=== PATIENT | female | born 1990 | race Two or more races ===

== ENCOUNTER 2022-11-30 12:37 | Emergency (ER) | payer OTHER, SELFPAY ==
--- NOTE | ~2022-11-30 | XR_ITS ---
EXAMINATION: XR chest 2V 11/30/2022 12:59 INDICATION: Chest pain PROCEDURE: 2 view chest COMPARISON: No prior studies for comparison. FINDINGS: The lungs are clear. The cardiomediastinal silhouette is within normal limits. There are no pleural effusions. There is no pneumothorax suspected. IMPRESSION: 1: NO ACUTE CARDIOPULMONARY DISEASE. Reviewed, dictated and finalized at location A.
--- NOTE | 2022-11-30 12:40 | ECG_ITS ---
Measurements Intervals [place] Rate: 78 P: 65 GA: 158 QRS: 76 QRSD: 78 T: 55 QT: 329 QTc: 376 Interpretive Statements SINUS RHYTHM BASELINE ARTIFACT- I, AVL NORMAL ECG NO PREVIOUS ECG AVAILABLE FOR COMPARISON Electronically Signed On 11-30-2022 13:08:31 CDT by Abrahan Ballesteros D.O.
[2022-11-30 12:49] VITALS: PULSE 93; RESP 17; TEMP 36.6; O2SAT 99
[2022-11-30 12:54] LABS: Basophils Absolute Auto 0.1 K/mm3 (0.0-0.1); Eosinophils Absolute Auto 0.7 K/mm3 (0-0.3); Eosinophils Percent Auto 10.1 % (0-4.4); Hematocrit 39.6 % (37.0-47.0); Hemoglobin 12.6 g/dL (12.0-15.0); Immature Granulocyte Absolute 0.02 K/mm3 (0.00-0.031); Immature Granulocyte Percent A 0.3 % (0-0.5); Lymphocytes Absolute Auto 2.07 K/mm3 (0.9-3.2); Lymphocytes Percent Auto 29.4 % (18.3-44.2); Mean Corpuscular HGB Conc 31.8 g/dl (32-36); Mean Corpuscular Hemoglobin 26.7 pg (26-34); Mean Corpuscular Volume 83.9 fl (80-100); Mean Platelet Volume 9.6 fl (7.4-10.4); Monocytes Absolute Auto 0.4 K/mm3 (0.1-0.6); Monocytes Percent Auto 6.1 % (2.6-8.5); Neutrophils Absolute Auto 3.7 K/mm3 (1.3-6.7); Neutrophils Percent Auto 53.1 % (45.5-73.1); Platelet Count Result 310 k/mm3 (150-375); Red Blood Count 4.72 M/mm3 (4.2-5.4); Red Cell Distribution Width 13.2 % (11.5-14.5)
[2022-11-30 13:05] LABS: INR 0.9; Prothrombin Time 12.8 Seconds (11.1-14.7)
[2022-11-30 13:08] LABS: Alanine Aminotransferase 15 U/L (6-35); Albumin Level 4.7 g/dL (3.5-5.1); Alkaline Phosphatase 63 U/L (38-126); Anion Gap 8 mmol/L (8-16); Aspartate Amino Transferase 25 U/L (14-36); Bilirubin,Total 0.4 mg/dL (0.2-1.3); Blood Urea Nitrogen 11 mg/dL (7-17); Calcium 9.1 mg/dL (8.4-10.2); Carbon Dioxide 27 mmol/L (22-30); Chloride 105 mmol/L (98-107); Estimated Glomerular Filt Rate > 60; Glucose 81 mg/dL (65-110); Lipase 99 U/L (23-300); Potassium 4.1 mmol/L (3.4-5.0); Sodium 140 mmol/L (137-145)
[2022-11-30 13:20] LABS: Troponin I < 0.012 ng/mL (0.000-0.034)
--- NOTE | 2022-11-30 15:54 | ED.CHESTPAIN ---
HPI - Chest Pain General Chief Complaint: Chest Pain Stated Complaint: chest pain Time Seen by Provider: 11/30/22 15:42 History of Present Illness HPI narrative: 32-year-old female presented the emergency department for evaluation of right-sided chest pain. Patient states this morning she had onset of right-sided chest pain that was worsened with deep inspiration. Patient describes the pain as sharp and with deep inspiration. Patient denied any radiation of the pain. Patient denied any associated nausea vomiting or diaphoresis. Patient denies any prior history of PE or DVT. Patient denies any prior history of coronary disease. Patient did have a D&C last Friday at [facility]. Patient reports that since the pain started this morning is almost completely resolved. Patient denies any current shortness of breath. Related Data Allergies Allergy/AdvReac Type Severity Reaction Status Date / Time No Known Allergies Allergy Verified 11/30/22 15:58 Review of Systems Review of Systems: All systems reviewed & are unremarkable except as noted in HPI and below Exam Narrative: APPEARANCE: Well appearing, no pain, no distress, well-nourished. HEAD: normocephalic, atraumatic. EYES: PERRLA/EOMI, conjunctivae clear. NOSE: Normal no drainage NECK: Supple. No adenopathy, no masses. RESPIRATORY: Airway patent, respirations nonlabored. Clear to auscultation bilaterally, no rales, rhonchi, wheezing. CARDIOVASCULAR: Regular rate and rhythm without murmurs rubs or gallops. ABDOMINAL: Soft, nontender, nondistended, normal bowel sounds MUSCULOSKELETAL: Moves all extremities. Strength/ROM intact, No edema, No calf tenderness. NEURO: Alert. Cranial nerves II through XII intact. SKIN: Warm, dry. Normal Color Course Course Emergency Course: 32-year-old female presented the emergency department for evaluation of pleuritic right-sided chest wall pain. Patient was afebrile with no leukocytosis. Patient is not tachycardic nor hypoxic. Patient's INR is 0.9. Patient's chemistries are within normal limits. Patient's chest x-ray showed no acute cardiopulmonary abnormality. EKG showed normal sinus rhythm with no ST changes. D-dimer was ordered due to the patient had a recent surgical procedure. Patient's D-dimer was not elevated. Patient's repeat troponin was not elevated. Suspect pleuritic chest wall pain. Patient was updated results of her work-up. Patient's D-dimer was not elevated so low concern for pulm embolism. Patient may have a pleurisy or pneumonitis from her recent surgical procedure. Patient was updated on the treatment plan encouraged of close follow-up with her primary care physician. All question concerns were addressed and patient was comfortable with the plan for discharge and close follow-up Vital Signs Vital signs: Vital Signs Temperature 98 F 11/30/22 12:49 Pulse Rate 93 11/30/22 12:49 Respiratory Rate 17 11/30/22 12:49 Pulse Oximetry 99 11/30/22 12:49 Temperature 98 F 11/30/22 12:49 Pulse Rate 78 11/30/22 17:08 Respiratory Rate 18 11/30/22 17:08 Blood Pressure 103/74 11/30/22 17:08 Pulse Oximetry 100 11/30/22 17:08 Oxygen Delivery Room Air 11/30/22 15:57 MDM - Chest Pain Differential Diagnosis Differential diagnosis: Likely pneumothorax, atypical chest pain, costochondritis, chest pain and other (Pulmonary embolism) Lab Data Attestation: I reviewed the patient's lab results. 11/30/22 12:49 11/30/22 12:49 Labs: Lab Results 11/30/22 11/30/22 Range/Units 12:49 16:03 WBC 7.0 (4.5-10.0) K/mm3 RBC 4.72 (4.2-5.4) M/mm3 Hgb 12.6 (12.0-15.0) g/dL Hct 39.6 (37.0-47.0) % MCV 83.9 (80-100) fl MCH 26.7 (26-34) pg MCHC 31.8 L (32-36) g/dl RDW 13.2 (11.5-14.5) % Plt Count 310 (150-375) k/mm3 MPV 9.6 (7.4-10.4) fl Immature Gran % (Auto) 0.3 (0-0.5) % Neut % (Auto) 53.1 (45.5-73.1) % Lymph %
[2022-11-30 15:57] VITALS: PULSE 67; O2SAT 100
[2022-11-30 16:32] LABS: D Dimer 0.43 ug/mL (<0.48)
[2022-11-30 16:40] LABS: Troponin I < 0.012 ng/mL (0.000-0.034)
[2022-11-30] MEDS: KETOROLAC 15 MG/ML VIAL (*BKC) IV PUSH (17:02)
[2022-11-30 17:08] VITALS: BP 103/74; PULSE 78; RESP 18; O2SAT 100
== END 2022-11-30 17:09 | disposition home or self-care (01) ==
PROVIDERS: Emergency Provider Emergency Medicine
DX: R09.1 Pleurisy (principal); R07.89 Other chest pain
CPT/HCPCS: 36415; 71046; 80053; 83690; 84484; 85025; 85380; 85610; 85730; 93005; 96374; 99284; J1885

== ENCOUNTER 2023-06-30 22:35 | Emergency (ER) | payer OTHER, SELFPAY ==
--- NOTE | ~2023-06-30 | CT_ITS ---
Non-contrast Head CT History: Paresthesia Technique: Axial non-contrast imaging of the brain was performed. Dose reduction technique was used on this scan by utilizing automated exposure control and iterative reconstruction technique. The dose -length product (DLP) was 605.33 mGy-cm. Findings: There is no evidence of intracranial hemorrhage, mass lesion, or acute infarct. Brain par enchyma appears normal. The ventricles and subarachnoid spaces are normal in size. The calvarium ap pears normal. The visualized paranasal sinuses and mastoid air cells are clear. Impression: No significant abnormality seen. Reviewed, dictated and finalized at location . GE MAINTAINER Impression: No significant abnormality seen.
[2023-06-30 22:39] VITALS: BP 141/90; PULSE 97; RESP 16; TEMP 36.4; O2SAT 100
--- NOTE | 2023-06-30 22:45 | ECG_ITS ---
Measurements Intervals [place] Rate: 91 P: 64 [place]: 164 QRS: 68 QRSD: 79 T: 54 QT: 343 QTc: 422 Interpretive Statements SINUS RHYTHM NONSPECIFIC ST & T-WAVE ABNORMALITY ABNORMAL ECG COMPARED TO ECG 11/30/2022 12:45:00 T-WAVE ABNORMALITY NOW PRESENT Electronically Signed On 07-01-2023 16:56:06 SPREADER BOX OPERATOR by You Price M.D.
[2023-06-30 22:53] LABS: Basophils Absolute Auto 0.1 K/mm3 (0.0-0.1); Basophils Percent Auto 0.7 % (0.2-1.2); Eosinophils Absolute Auto 0.3 K/mm3 (0-0.3); Eosinophils Percent Auto 3.1 % (0-4.4); Hematocrit 41.8 % (37.0-47.0); Hemoglobin 13.1 g/dL (12.0-15.0); Immature Granulocyte Absolute 0.02 K/mm3 (0.00-0.031); Immature Granulocyte Percent A 0.2 % (0-0.5); Lymphocytes Absolute Auto 2.85 K/mm3 (0.9-3.2); Lymphocytes Percent Auto 33.5 % (18.3-44.2); Mean Corpuscular HGB Conc 31.3 g/dl (32-36); Mean Corpuscular Hemoglobin 26.1 pg (26-34); Mean Corpuscular Volume 83.3 fl (80-100); Mean Platelet Volume 10.2 fl (7.4-10.4); Monocytes Absolute Auto 0.5 K/mm3 (0.1-0.6); Monocytes Percent Auto 5.8 % (2.6-8.5); Neutrophils Absolute Auto 4.8 K/mm3 (1.3-6.7); Neutrophils Percent Auto 56.7 % (45.5-73.1); Platelet Count Result 237 k/mm3 (150-375); Red Blood Count 5.02 M/mm3 (4.2-5.4); White Blood Count 8.5 K/mm3 (4.5-10.0)
[2023-06-30 23:05] LABS: Alanine Aminotransferase 14 U/L (6-35); Albumin Level 4.9 g/dL (3.5-5.1); Alkaline Phosphatase 72 U/L (38-126); Anion Gap 9 mmol/L (8-16); Aspartate Amino Transferase 24 U/L (14-36); Bilirubin,Total 0.7 mg/dL (0.2-1.3); Blood Urea Nitrogen 20 mg/dL (7-17); Calcium 9.4 mg/dL (8.4-10.2); Carbon Dioxide 25 mmol/L (22-30); Chloride 103 mmol/L (98-107); Estimated CRCL calculation 94 ml/min; Estimated Glomerular Filt Rate > 60; Glucose 107 mg/dL (65-110); Potassium 3.6 mmol/L (3.4-5.0); Sodium 137 mmol/L (137-145)
[2023-06-30 23:54] VITALS: PULSE 82
[2023-07-01 00:04] VITALS: BP 105/78; PULSE 91; RESP 19; O2SAT 100
--- NOTE | 2023-07-01 00:17 | ED.DIZZY ---
HPI - Dizziness General Chief Complaint: Dizziness Stated Complaint: R hand numbness, dizziness Time Seen by Provider: 07/01/23 00:00 Source: patient Mode of arrival: ambulatory Limitations: no limitations History of Present Illness HPI Narrative: This is a 32 presents to the ED with chief complaint right upper extremity paresthesias for the past 2 weeks intermittently. Reports that she has had intermittent lightheadedness as well. Reports that the last 2-3 days she had a headache but this resolved today. Reports some intermittent light sensitivity. Reports she is feeling jittery on the inside. Reports having a dry mouth and heart palpitations. Denies chest pain, shortness of breath, syncope, seizures, head injury, abdominal pain, nausea, vomiting. Related Data Allergies Allergy/AdvReac Type Severity Reaction Status Date / Time No Known Allergies Allergy Verified 11/30/22 15:58 Review of Systems Review of Systems: All systems as dictated in HPI Exam Narrative: GENERAL: Well-appearing, well-nourished, and in no acute distress. HEAD: Normocephalic, atraumatic. EYES: PERRLA and EOMI. ENT: Nares clear, no rhinorrhea or epistaxis. Mucous membranes moist. Oropharynx without tonsillar hypertrophy exudate or other lesions. NECK: Supple. No adenopathy or masses. CHEST: No respiratory distress. Clear to auscultation. No wheezes rales or rhonchi HEART: Regular rate and rhythm. No murmur heard. Normal peripheral pulses. ABDOMEN: Soft, nontender, nondistended, normal active bowel sounds. MSK: Normal range of motion. No edema. SKIN: Warm, dry, no rash. NEURO: Alert and oriented x3. No focal deficits. PSYCH: Normal mood and affect. Course Vital Signs Vital signs: Vital Signs Temperature 97.6 F 06/30/23 22:39 Pulse Rate 97 06/30/23 22:39 Respiratory Rate 16 06/30/23 22:39 Blood Pressure 141/90 H 06/30/23 22:39 Pulse Oximetry 100 06/30/23 22:39 Oxygen Delivery Room Air 06/30/23 22:39 Temperature 97.6 F 06/30/23 22:39 Pulse Rate 91 07/01/23 00:04 Respiratory Rate 19 07/01/23 00:04 Blood Pressure 105/78 07/01/23 00:04 Pulse Oximetry 100 07/01/23 00:04 Oxygen Delivery Room Air 06/30/23 22:39 MDM - Dizziness MDM Narrative Medical decision making narrative: this is a 33-year-old female who presents to the ED with multiple complaints including paresthesias, lightheadedness, headache, palpitations. Vitals are normal. Exam is unremarkable. Neurologic exam fully intact. No motor deficit. EKG shows normal sinus rhythm. Bedside negative. CT brain negative for any acute findings. Incidental finding of pineal cyst. Lab work unremarkable. There are no meningeal signs on exam. Her headache is resolved today. Overall symptoms consistent with isolated paresthesias. We discussed that there is no evidence of any emergent finding on her for workup today. neurology referral given. Pt will be discharged in stable condition. Return precautions given and supportive measures discussed. Pt is understanding and agreeable with plan for discharge and follow-up with PCP/neuro Lab Data 06/30/23 22:47 06/30/23 22:47 Labs: Lab Results 06/30/23 Range/Units 22:47 WBC 8.5 (4.5-10.0) K/mm3 RBC 5.02 (4.2-5.4) M/mm3 Hgb 13.1 (12.0-15.0) g/dL Hct 41.8 (37.0-47.0) % MCV 83.3 (80-100) fl MCH 26.1 (26-34) pg MCHC 31.3 L (32-36) g/dl RDW 13.0 (11.5-14.5) % Plt Count 237 (150-375) k/mm3 MPV 10.2 (7.4-10.4) fl Immature Gran % (Auto) 0.2 (0-0.5) % Neut % (Auto) 56.7 (45.5-73.1) % Lymph % (Auto) 33.5 (18.3-44.2) % [place] % (Auto) 5.8 (2.6-8.5) % Eos % (Auto) 3.1 (0-4.4) % Baso % (Auto) 0.7 (0.2-1.2) % Lymph # (Auto) 2.85 (0.9-3.2) K/mm3 [place] # (Auto) 0.5 (0.1-0.6) K/mm3 Eos # (Auto) 0.3 (0-0.3) K/mm3 Baso # (Auto) 0.1 (0.0-0.1) K/mm3 Abs Immat Gran (auto) 0.02 (0.00-0.031) K/
[2023-07-01 02:24] VITALS: BP 105/78; PULSE 73; RESP 24; O2SAT 100
== END 2023-07-01 02:26 | disposition home or self-care (01) ==
PROVIDERS: Emergency Medicine; Emergency Provider Physician Assistant
DX: R20.2 Paresthesia of skin (principal); R42 Dizziness and giddiness
CPT/HCPCS: 36415; 70450; 80053; 81025; 85025; 93005; 99284

== ENCOUNTER → 2023-07-03 09:08 | Outpatient (CLI) | payer OTHER, SELFPAY ==
--- NOTE | ~2023-07-03 | XR_ITS ---
Cervical Spine: AP, lateral, open-mouth views Clinical History: Paresthesia Findings: The normal lordotic curve is maintained. The vertebral bodies and posterior elements appea r intact. The intervertebral disc spaces are well maintained. Pre-vertebral soft tissues are unremar kable. Impression: No significant abnormality is seen. Reviewed, dictated and finalized at [facility]. AIR CONDITIONING APPRENTICE Impression: No significant abnormality is seen.
== END ==
PROVIDERS: PCP Emergency Medicine; Visit Provider Emergency Medicine
DX: R20.2 Paresthesia of skin (principal)
CPT/HCPCS: 72050

== ENCOUNTER 2023-09-07 20:42 | Emergency (ER) | payer OTHER, SELFPAY ==
--- NOTE | ~2023-09-07 | CT_ITS ---
Non-contrast Head CT History: Headache COMPARISON: 07/09/2023 Technique: Axial non-contrast imaging of the brain was performed. Dose reduction technique was used on this scan by utilizing automated exposure control and iterative reconstruction technique. The dose -length product (DLP) was 681.00 mGy-cm. Findings: There is no evidence of intracranial hemorrhage, mass lesion, or acute infarct. Brain par enchyma appears normal. The ventricles and subarachnoid spaces are normal in size. The calvarium ap pears normal. The visualized paranasal sinuses and mastoid air cells are clear. Impression: No significant abnormality seen. Reviewed, dictated and finalized at location . ESTATE ASSISTANT Impression: No significant abnormality seen.
[2023-09-07 20:46] VITALS: BP 140/76; PULSE 72; RESP 15; TEMP 36; O2SAT 100
[2023-09-07 21:49] VITALS: BP 125/88; PULSE 71; RESP 13; O2SAT 100
--- NOTE | 2023-09-07 22:08 | ED.GENADULT ---
HPI - General Adult General Chief complaint: Headache Stated complaint: migraine, double vision Time Seen by Provider: 09/07/23 21:53 History of Present Illness HPI narrative: 33-year-old female presenting to the emergency department for evaluation of persistent headache over the course of the last 2 weeks. Patient states she does have a rare history of headaches but denies any persistent migraines. Patient does have a family history of migraines. Patient states approximately 2 weeks ago she started having some frontal sinus pressure and states that the symptoms have persisted. Patient has been taking ibuprofen for pain control without significant improvement. [facility] treated with a migraine cocktail, patient states that this did help with her symptoms briefly but she felt that she had an adverse reaction to the Compazine and patient's symptoms have persisted patient Related Data Home Medications Medication Instructions Recorded Confirmed cholecalciferol (vitamin D3) 50 50 mcg PO DAILY 08/19/23 08/19/23 mcg (2,000 unit) capsule Allergies Allergy/AdvReac Type Severity Reaction Status Date / Time No Known Allergies Allergy Verified 09/07/23 20:49 Review of Systems Review of Systems: All systems reviewed & are unremarkable except as noted in HPI and below PMFSH Surgical History Surgical History History of dilation and curettage 2022 Family History Family History (Updated 08/19/23 @ 09:20 by Lavonne Waldron MA) Father Hypertension Diabetes mellitus COPD (chronic obstructive pulmonary disease) Mother Hypertension Diabetes mellitus Social History Social History (Updated 08/19/23 @ 09:21 by Lavonne Waldron MA) Smoking status: Unknown if ever smoked Smokeless tobacco user: other Alcohol intake: never Substance use: never Substance use type: does not use Do You Feel Safe in your Home?: Yes Lack of Transportation: No Lack of Food: Never True Current Housing: I Have Housing Concerned About Future Housing: No Difficulty Paying Gas/Electric Bills: No Difficulty Paying for Meds: No Currently Unemployed: No Education: High School Diploma/GED Difficulty w/ Childcare or Family Care: No Living arrangements: with family Occupation/Education: occupation Gender identity (if verbalized by the patient): Female Sexual Orientation (if Verbalized by the Patient): Straight or Heterosexual Exam Narrative: APPEARANCE: Well appearing, no pain, no distress, well-nourished. HEAD: normocephalic, atraumatic. EYES: PERRLA/EOMI, conjunctivae clear. NOSE: Normal no drainage EARS:TMS clear with good light reflex. THROAT: Pharynx clear, no exudate. NECK: Supple. No adenopathy, no masses. RESPIRATORY: Airway patent, respirations nonlabored. Clear to auscultation bilaterally, no rales, rhonchi, wheezing. CARDIOVASCULAR: Regular rate and rhythm without murmurs rubs or gallops. ABDOMINAL: Soft, nontender, nondistended, normal bowel sounds MUSCULOSKELETAL: Moves all extremities. Strength/ROM intact, No edema, No calf tenderness. NEURO: Alert. Cranial nerves II through XII intact. Normal comprehensive neuro exam SKIN: Warm, dry. Normal Color Course Course Emergency Course: 33-year-old female presented the ED for evaluation of headache. Patient reports her headache was significantly improved with treatment in the ED. Patient had a negative head CT. Patient was comfortable the plan for discharge and close follow-up. Patient was encouraged to follow up with her primary care physician. Patient will also be provided follow-up with Neurology. Vital Signs Vital signs: Vital Signs Temperature 96.8 F L 09/07/23 20:46 Pulse Rate 72 09/07/23 20:46 Respiratory Rate 15 09/07/23 20:46 Blood Pressure 140/76 09/07/23 20:46 Pulse Oximetry 100 09/07/23 20:46 Oxygen Delivery Room Air
[2023-09-07] MEDS: KETOROLAC 15 MG/ML VIAL (*BKC) IV PUSH (22:24)
[2023-09-07] MEDS: dexAMETHasone SOD PHOS INJ 10 MG/ML 1 ML VIAL IV PUSH (22:24)
[2023-09-07] MEDS: MAGNESIUM SULF 1 GM/D5W 100 ML 1 GM/100 ML BAG IVPB (22:25)
[2023-09-07 23:37] LABS: Influenza A QL RT-PCR Negative (Negative); Influenza B QL RT-PCR Negative (Negative); RSV RNA, RT-PCR Negative (Negative); SARS-CoV-2 RNA PCR Negative (Negative)
== END 2023-09-08 00:10 | disposition home or self-care (01) ==
PROVIDERS: Emergency Provider Emergency Medicine; PCP Emergency Medicine
DX: R51.9 Headache, unspecified (principal); Z20.822 Contact with and (suspected) exposure to COVID-19
CPT/HCPCS: 70450; 81025; 87637; 96365; 96375; 99284; J1100; J1885; J3475

== ENCOUNTER 2023-10-24 12:43 | Outpatient (CLI) | payer OTHER, SELFPAY ==
--- NOTE | ~2023-10-24 | MM_ITS ---
EXAMINATION: MM diagnostic joseluis BI w willem HISTORY: Palpable breast lump TECHNIQUE: Additional 3-D tomosynthesis images of the breasts were performed and synthetic 2-D images were generated. CAD analysis was submitted and interpreted. COMPARISON: None BREAST PARENCHYMAL COMPOSITION: Dense: The breasts are extremely dense, which lowers the sensitivity of mammography. FINDINGS: There are no suspicious masses, calcifications or architectural distortion in either breast to suggest malignancy. IMPRESSION: 1. Dense breasts. No mammographic evidence for malignancy. 2. Recommend complete bilateral breast ultrasound for evaluation of dense breast. BI-RADS Category 0: Incomplete: Needs additional imaging evaluation. Reviewed, dictated and finalized at location A. IMPRESSION: 1. Dense breasts. No mammographic evidence for malignancy. 2. Recommend complete bilateral breast ultrasound for evaluation of dense breas t. BI-RADS Category 0: Incomplete: Needs additional imaging evaluation.
== END 2023-10-24 12:44 | disposition home or self-care (01) ==
LOC: ANHIMG 12:44
PROVIDERS: PCP Emergency Medicine; Visit Provider Obstetrics & Gynecology
DX: N63.15 Unspecified lump in the right breast, overlapping quadrants (principal); R92.8 Other abnormal and inconclusive findings on diagnostic imaging of breast
CPT/HCPCS: 77062; 77066; G0279

== ENCOUNTER 2023-10-28 08:21 | Outpatient (CLI) | payer OTHER, SELFPAY ==
--- NOTE | ~2023-10-28 | US_ITS ---
US breast BI complete DATE: 10/28/2023 09:04 INDICATION: 10:00 right breast lump 3 cm from nipple TECHNIQUE: Real-time imaging of both complete breasts, including all 4 quadrants and subareolar areas COMPARISON: None FINDINGS: No suspicious mass or shadowing of either breast is detected. No cyst is identified. IMPRESSION: BI-RADS Category 1: Negative If symptoms or physical signs persist, consider diagnostic mammography. Reviewed, dictated and finalized at Location A. Reviewed, dictated and finalized at location A.
== END 2023-10-28 08:22 | disposition home or self-care (01) ==
PROVIDERS: PCP Emergency Medicine; Visit Provider Obstetrics & Gynecology
DX: N63.15 Unspecified lump in the right breast, overlapping quadrants (principal)
CPT/HCPCS: 76641

== ENCOUNTER 2023-12-06 08:29 | Outpatient (CLI) | payer OTHER, SELFPAY ==
--- NOTE | ~2023-12-06 | MR_ITS ---
EXAMINATION: MR brain/brain stem wo/w con DATE: 12/06/2023 09:13 INDICATION: Diplopia. Right lower extremity numbness. TECHNIQUE: Magnetic resonance imaging (MRI) of the brain and brainstem was performed without and with 13 mL MultiHance intravenous contrast. COMPARISON: Head CT 09/07/2023 FINDINGS: There is no intracranial hemorrhage, acute infarction, or abnormal intracranial mass lesion . There is mucosal thickening in the paranasal sinuses. The orbits are normal. The mastoid air cells are normal. IMPRESSION: 1. Normal brain. Reviewed, dictated and finalized at location A. IMPRESSION: 1. Normal brain.
== END 2023-12-06 08:30 | disposition home or self-care (01) ==
LOC: ANHIMG 08:30
PROVIDERS: PCP Emergency Medicine; Visit Provider Student in an Organized Health Care Education/Training Program
DX: H53.2 Diplopia (principal); R20.0 Anesthesia of skin
CPT/HCPCS: 70553; A9577

== ENCOUNTER 2024-09-21 08:53 | Emergency (ER) | payer OTHER, SELFPAY ==
--- NOTE | ~2024-09-21 | US_ITS ---
EXAMINATION: US OB <=14 wk fetus w TV DATE: 09/21/2024 11:09 INDICATION: Nausea and vomiting during first trimester TECHNIQUE: Real-time pelvic ultrasound utilizing both a transvaginal and transabdominal probe was pe rformed. The interpreting radiologist was not present for the study. COMPARISON: None. FINDINGS: The uterus measures 9.4 x 6.9 x 8.2 cm. There is an intrauterine gestational sac. A yolk sac and fet al pole are identified. The crown rump length measures 6-7, which correlates with an estimated gestat ional age of 6 weeks and 6 days. heart motion is identified measuring 119 beats per minute (bpm ) by M-mode Doppler. 1.7 x 0.3 cm anechoic subchorionic hematoma along the anterior margin of the ges tational sac. There are couple 6 x 3 mm hypoechoic regions along the posterior margin of the gestatio nal sac also suspicious for small hematomas. The right ovary measures 3.9 x 1.6 x 3.0 cm. The left ovary measures 3.8 x 3.1 x 2.3 cm. There are a few subcentimeter anechoic follicles at both ovaries. There is a larger 1.1 cm hypoechoic likely chon us luteum cyst in the left ovary. There is no free fluid in the pelvis. IMPRESSION: 1. Single living fetus with heart rate of 119 bpm. 2. Gestational age by ultrasound of 6 weeks 6 day(s) +/- 3 day(s) with ultrasound estimated date of delivery ([facility]) of 05/11/2025. 3. A few small subchorionic hematomas, the largest measuring 17 x 3 mm. Reviewed, dictated and finalized at location B. E COMMERCE ANALYST IMPRESSION: 1. Single living fetus with heart rate of 119 bpm. 2. Gestational age by ultrasound of 6 weeks 6 day(s) +/- 3 day(s) with ultraso und estimated date of delivery ([facility]) of 05/11/2025. 3. A few small subchorionic hematomas, the largest measuring 17 x 3 mm.
[2024-09-21 09:00] VITALS: BP 112/77; PULSE 83; RESP 18; TEMP 36.4; O2SAT 100
[2024-09-21 09:19] LABS: Basophils Absolute Auto 0.1 K/mm3 (0.0-0.1); Basophils Percent Auto 0.4 % (0.2-1.2); Eosinophils Absolute Auto 0.1 K/mm3 (0-0.3); Eosinophils Percent Auto 0.9 % (0-4.4); Hematocrit 42.5 % (37.0-47.0); Immature Granulocyte Absolute 0.04 K/mm3 (0.00-0.031); Immature Granulocyte Percent A 0.4 % (0-0.5); Lymphocytes Absolute Auto 1.63 K/mm3 (0.9-3.2); Lymphocytes Percent Auto 14.6 % (18.3-44.2); Mean Corpuscular HGB Conc 32.9 g/dl (32-36); Mean Corpuscular Hemoglobin 26.3 pg (26-34); Mean Corpuscular Volume 79.9 fl (80-100); Mean Platelet Volume 10.6 fl (7.4-10.4); Monocytes Absolute Auto 0.6 K/mm3 (0.1-0.6); Monocytes Percent Auto 5.3 % (2.6-8.5); Neutrophils Absolute Auto 8.7 K/mm3 (1.3-6.7); Neutrophils Percent Auto 78.4 % (45.5-73.1); Platelet Count Result 254 k/mm3 (150-375); Red Blood Count 5.32 M/mm3 (4.2-5.4); Red Cell Distribution Width 13.3 % (11.5-14.5); White Blood Count 11.1 K/mm3 (4.5-10.0)
--- OUTSIDE RECORDS SUMMARY | 2024-09-21 09:22 | XMS_ITS | Patient Health Summary ---
Author Organization [facility] Address [address] [place] [address] Care Team Providers Care Material Handling Supervisor Name Role Phone Unavailable Primary Care Provider Unavailabl e Note from [facility],non-owned Affiliates and Associated Physician Practices is amultiple site organization consisting of ambulatory clinics and hospital sitesin [place], [place], [place] and [place]. This disclosure is being madepursuant to the Care Everywhere program and may not contain all information available regarding this patient. Last updated 18.[facility] Verious Allergies No known active allergies Medications * Be aware that medications may not be up to date on this document. Alwaysverify current medications with the patient. * triamcinolone acetonide (KENALOG) 0.1 % ointment(Started 11/07/2020) Apply to rash 2-3x daily. 30 days supply. 4 refills by 11/07/2021 * vitamin D, ergocalciferol, (Drisdol) 1.25 MG (00338 UT) capsule(Started 07/20/2023) Take 1 (one) capsule by mouth * clobetasol (Temovate) 0.05 % cream(Started 07/31/2023) Apply to affected area once daily as needed (For non-facial psoriasis rash. For daytime use (ointment at night time).) * clobetasol (Temovate) 0.05 % ointment(Started 08/06/2023) Apply twice daily as needed for psoriasis, avoid face and groin 11 refills by 08/05/2024 * calcipotriene (Dovonex) 0.005 % cream(Started 08/06/2023) Apply to affected area, twice daily. 11 refills by 08/05/2024 Active Problems Problem Noted Date Diagnosed Date Allergic contact dermatitis due to other agents 11/07/2020 Rash and other nonspecific skin eruption 021 Fissure in skin of both feet 08/09/2020 Supervision of normal first 09/11/2016 Depression screen 09/11/2016 Social History Tobacco Use Types Packs/Day Years Used Date Smoking Tobacco: Never Smokeless Tobacco: Never Alcohol Use Standard Drinks/Week Comments Never 0 (1 standard drink = 0.6 oz pur e alcohol) Sex and Gender Information Value Date Recorded Sex Assigned at Not on file Gender Identity Not on file Sexual Orientation Not on file Last Filed Vital Signs Vital Sign Reading Time Taken Comments Blood Pressure 98/60 07/31/2023 11:15 AM HYBRID TESTER Pulse 66 07/31/2023 11:15 AM HYBRID TESTER Temperature 36.7 C (98 F) 07/31/2023 11:15 AM HYBRID TESTER Respiratory Rate 16 07/31/2023 11:15 AM HYBRID TESTER Oxygen Saturation 97% 07/31/2023 11:15 AM HYBRID TESTER Inhaled Oxygen Concentration - - Weight 66.7 kg (147 lb) 07/31/2023 11:15 AM HYBRID TESTER Height 167.6 cm (5' 6 ) 07/31/2023 11:15 AM HYBRID TESTER Body Mass Index 23.73 07/31/2023 11:15 AM HYBRID TESTER Procedures * AR PUNCH BX SKIN SINGLE LESION(Performed 06/26/2020) Performed for Rash and other nonspecific skin eruption * DERMATOPATHOLOGY(Performed 06/23/2020) Performed for Rash and other nonspecific skin eruption * SONOGRAM - COMPLETE(Performed 12/10/2016) * TYPE + SCREEN PANEL(Performed 12/10/2016) Performed for Supervision of normal first , antepartum ([facility]) * HEPATITIS B SURFACE ANTIGEN W RFLX CONFIRMATION(Performed 12/10/2016) Performed for Supervision of normal first , antepartum ([facility]) * HIV-1 HIV-2 ANTIBODY + HIV P24 AG PANEL(Performed 12/10/2016) Performed for Supervision of normal first , antepartum ([facility]) * RPR(Performed 12/10/2016) Performed for Supervision of normal first , antepartum ([facility]) * RUBELLA ANTIBODY IGG(Performed 12/10/2016) Performed for Supervision of normal first , antepartum ([facility]) * URINALYSIS REFLEX TO MICROSCOPIC NO CULTURE(Performed 12/10/2016) Performed for Supervision of normal first , antepartum ([facility]) * CHLAMYDIA + GC AMPLIFIED PROBE(Performed 12/10/2016) Performed for Supervision of normal first , antepartum ([facility]) * CULTURE URINE(Performed 12/10/2016) Performed for Supervision of normal first , antepartum ([facility]) * GLUCOSE PROTEIN KETONE URINE - POINT OF CAR(Performed 12/10/2016) Performed for Encounter for supervision of normal first in second trimester ([facility]) * TYPE + SCREEN PANEL(Performed 11/12/2016) Performed for Encounter for supervision of normal first in second trimester ([facility]) * CBC W AUTO DIFFERENTIAL(Performed 11/12/2016) Performed for Encounter for supervision of normal first in second trimester ([facility]) * HEMOGLOBIN ELECTROPHORESIS(Performed 11/12/2016) Performed for Encounter for supervision of normal first in second trimester ([facility]) * ALPHA FETOPROTEIN BLOOD MATERNAL QUAD PANEL(Performed 11/12/2016) Performed for Encounter for supervision of normal first in second trimester ([facility]) * GLUCOSE PROTEIN KETONE URINE - POINT OF CAR(Performed 11/12/2016) Performed for Encounter for supervision of normal first in second trimester ([facility]) * SONOGRAM - COMPLETE(Performed 11/12/2016) * HCG URINE QUALITATIVE - POCT (IP) [facility](Performed 08/29/2016) * PH FLUID - POCT (AMB) [facility](Performed 08/29/2016) * WET PREP - POINT OF CARE (AMB) [facility](Performed 08/29/2016) * FUNGUS HELEN - POINT OF CARE (AMB) [facility](Performed 08/29/2016) Results * AR PUNCH BX SKIN SINGLE LESION (06/26/2020 2:38 PM HYBRID TESTER) Narrative Rachael Arreguin MD - 06/26/2020 2:38 PM HYBRID TESTER Rachael Arreguin MD 06/26/2020 2:39 PM Punch Biopsy: Pre-procedure Diagnosis: pso vs eczematous Post_procedure Diagnosis: same Estimated Blood Loss: 1cc Findings: None Complications: None Specimens: 1 Verbal informed consent was obtained after discussing alternatives, risks including pain, bleeding, infection, recurrence and scarring. The biopsy site was marked and sterilely prepped with alcohol, which was allowed to dry completely, then locally infiltrated with 1% lidocaine with epinephrine, 3 cc total per biopsy site. A punch biopsy/biopsies was/were obtained using a 4 size punch and the specimen(s) was sent to dermatopathology. 4-0 nylon suture was placed which achieved hemostasis. Vaseline ointment and a clean dressing were applied. The patient tolerated the procedure well without complications. Verbal and written wound care instructions were given. Suture kit was provided/suture removal return appointment was provided/set up appropriately. Rachael Arreguin MD Rachael Arreguin MD PROCEDURE/MINOR SURG ICAL ORDERABLES * DERMATOPATHOLOGY (06/23/2020 12:00 AM HYBRID TESTER) Case Report Dermatopathology Report Case: [id number] Authorizing Provider: Rachael Arreguin MD Collected: 06/23/2020 12:00 AM Ordering Location: [facility] Received: 06/26/2020 10:27 AM Dermatology Pathologist: Lyndon Valdes MD Specimen: Skin, right knee 0 4:36 PM [facility] Final Diagnosis Specimen A. 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 0 4:36 PM [facility] Gross Description Specimen A: Received is one formalin filled container labeled with the patient's name and designated right knee. The specimen consists of a punch biopsy measuring 6d5m8dm, bisected. Jar 0. 0 4:36 PM [facility] Microscopic Description Specimen A. SKIN, right knee: There is psoriasiform hyperplasia of the epidermis with focal parakeratosis and spongiosis. There is a superficial, mainly lymphohistiocytic inflammatory infiltrate with eosinophils. Grocott's methenamine silver (GMS) stain fails to highlight fungal elements in the available sections. COMMENT: The histological differential diagnosis includes a chromic contact dermatitis, an eczematous drug eruption, and nummular eczema. Clinical correlation is recommended. 0 4:36 PM [facility] Disclaimer An external and internal positive and negative controls are appropriate for the histochemical, immunohistochemical and immunofluorescence stain(s) in this case (if any), except where stated explicitly. The performance characteristics of the stain(s) cited in this report were developed and its performance characteristic determined by the Dermatopathology Laboratory at [facility], directed by Dr. Sweetie Valdes. These tests need not be, and therefore are not, approved by the [place] Food and Drug Administration. The tests are used for clinical purposes. Billing Codes Specimen Charges Stain Charges 98293 1 53309 1 0 4:36 PM HYBRID TESTER DERMATOPATHOLOGY LABORATORY Embedded Images 0 4:36 PM [facility] Pathology/Cytolog y TISSUE SPECIMEN FROM SKIN / Unknown 06/23/2020 06/26/2020 10:27 AM HYBRID TESTER Rachael Arreguin MD LAB - PATHOLOGY/CYTO LOGY ORDERABLES Performing Organization Address City/State/[facility] Co de Phone Number DERMATOPATHOLOGY LABORATORY [facility] - Department of Dermatology [facility] [address] [place] [address], [address] Floor [address] [phone] * SONOGRAM - COMPLETE (12/10/2016 1:09 PM CDT) Only the most recent of2 resultswithin the time period is included. Anatomical Region Laterality Modality Other 12/10/2016 1:09 PM CDT Narrative 12/10/2016 1:59 PM CDT [facility] PHONE: FAX: Ritu. Name: CHERIE RODRIGUEZ Ritu. No: [id number] Study Date: 12/10/2016 1:09pm , Age: 13 1990, 26 Pregnancies: 1 Height: 67 in Weight: 135 lb LMP: Unknown GA by 1st: 20w2d GA by US: 20w3d GA Selected: 20w2d (From First U) SANTIAGO: 04/27/2017 Referring MD: MD Bijan, [facility] Brine Process Operator: Roselia Fatima RDMS CPT4: 33863 BMI: 21.14 Hist/Ind: Complete Anatomy Growth MEASUREMENTS & AGE GROWTH EVALUATION Measurement GA Range Srce %for GA Ratios ----- ---- ------- BPD 4.9 cm 20w5d (46w4g-00n2j) Hadl BPD 60% FL/BPD 0.70 HC 17.4 cm 19w6d (42z2a-01r4d) Hadl HC 39% FL/AC 0.22 AC 15.2 cm 20w3d (05g7s-97j0a) Hadl AC 53% HC/AC 1.14 (1.06 - 1.24) FL 3.4 cm 20w4d (20n9h-45n1l) Hadl FL 58% CI 0.81 (0.70 - 0.86) GA for sonogram 20w3d (60h9q-37f7u) Weight Estimate: based on (BPD,HC,AC,FL) Avg Weight: 355 gm (303-407) Hadlock : 0lbs, 12oz Normal: 352 gm (292-411) Hadlock Wt% 52% for 20w2d Heart Rate: 153 bpm CLINICAL SUMMARY Study Number: 2 A single fetus is identified cephalic presentation. The measurements today are consistent with appropriate growth compared to previous study. The SANTIAGO selected is based on a prior ultrasound examination (confirmed). The amniotic fluid volume is within normal limits. The placenta is anterior. No major malformations are seen. The patient was advised that ultrasound does not allow detection of all structural or chromosomal abnormalities. IMPRESSION: Single, live vertex IUP at 20w2d Normal amniotic fluid volume. Appropriate growth. Placental location: Anterior No major malformations are seen today within the limitations of ultrasound. RECOMMEND: Follow up ultrasound as clinically indicated. Thank you for allowing us the opportunity to care for your patient. Lian Pizarro MD <Electronic Signature> 12/10/2016 01:57pm Kavita ORDONEZ MFM ORDERABLE S * HIV-1 HIV-2 ANTIBODY + HIV P24 AG PANEL (12/10/2016 11:49 AM CDT) HIV1/2 Ab + P24 Ag Non Reactive Non Reactive 12/10/2016 7:41 PM CDT [facility] Blood BLOOD SPECIMEN / Unknown Venipuncture / Unknown 12/10/2016 11:49 AM CDT 12/10/2016 12:08 PM CDT Narrative [facility] - 12/10/2016 7:41 PM CDT No Laboratory evidence of HIV infection. Fanta ORDONEZ LAB - CHEMISTRY O RDERABLES Performing Organization Address City/State/[facility] Co de Phone Number [facility] [address] [place] [address] * RPR (12/10/2016 11:49 AM CDT) RPR Non Reactive Non Reactive 12/11/2016 10:44 AM CDT [facility] Blood BLOOD SPECIMEN / Unknown Venipuncture / Unknown 12/10/2016 11:49 AM CDT 12/10/2016 12:08 PM CDT Fanta Dover APRN-FINANCIAL SERVICES EDUCATION CONSULTANT LAB - CHEMISTRY O RDERABLES Performing Organization Address City/[facility]/ZIP Co de Phone Number [facility] [address] [place] [address] * RUBELLA ANTIBODY IGG (12/10/2016 11:49 AM CDT) [facility] Rubella Antibody IgG Positive - Immune 12/10/2016 12:50 PM CDT [facility] Blood BLOOD SPECIMEN / Unknown Venipuncture / Unknown 12/10/2016 11:49 AM CDT 12/10/2016 12:08 PM CDT Fanta Dover [facility] LAB - SEROLOGY OR DERABLES Performing Organization Address [facility] Co de Phone Number [facility] [address] [place] [address] * TYPE + SCREEN PANEL (12/10/2016 11:49 AM CDT) Only the most recent of2 resultswithin the time period is included. [facility] ABO O 12/10/2016 1:11 PM CDT [facility] Rh Type Positive 12/10/2016 1:11 PM CDT [facility] Comment:History check perfor med. No retype required. Antibody Screen Negative 12/10/2016 1:11 PM CDT [facility] Blood Bank BLOOD SPECIMEN / Unknown Venipuncture / Unknown 12/10/2016 11:49 AM CDT 12/10/2016 12:08 PM CDT Fanta Dover [facility] LAB - BLOOD BANK ORDERABLES Performing Organization Address [facility] Co de Phone Number [facility] [address] [place] [address] * HEPATITIS B SURFACE ANTIGEN (12/10/2016 11:49 AM CDT) [facility] HBsAg Non Reactive Non Reactive 12/10/2016 12:52 PM CDT [facility] Blood BLOOD SPECIMEN / Unknown Venipuncture / Unknown 12/10/2016 11:49 AM CDT 12/10/2016 12:08 PM CDT Fanat Haney Stan[facility]law [facility] - CHEMISTRY O RDERABLES [facility] [address] [place] [place] [phone] * URINALYSIS ROUTINE AUTO (12/10/2016 11:48 AM CDT) Color UA Yellow Straw, Yellow, Dark Yellow 12/10/2016 12:49 PM CDT [facility] Clarity UA Clear 12/10/2016 12:49 PM CDT [facility] Specific [place] UA 1.017 1.005 - 1.030 12/10/2016 12:49 PM CDT [facility] pH UA 6.0 5.0 - 8.0 pH 12/10/2016 12:49 PM CDT [facility] Protein UA Negative Negative 12/10/2016 12:49 PM CDT [facility] Blood UA Negative Negative 12/10/2016 12:49 PM CDT [facility] Leukocyte UA Negative Negative 12/10/2016 12:49 PM CDT [facility] Nitrite UA Negative Negative 12/10/2016 12:49 PM CDT [facility] Glucose UA Negative Negative 12/10/2016 12:49 PM CDT [facility] Ketone UA Negative Negative 12/10/2016 12:49 PM CDT [facility] Bilirubin UA Negative Negative 12/10/2016 12:49 PM CDT [facility] Urobilinogen UA 0.2 0.1 - 1.0 EU/dL 12/10/2016 12:49 PM CDT [facility] Urine URINE SPECIMEN OBTAINED BY CLEAN CATCH PROCEDURE / Unknown Collection / Unknown 12/10/2016 11:48 AM CDT 12/10/2016 12:15 PM CDT Fanta M Stanislaw [facility] - URINALYSIS ORDERABLES Performing Organization Address [facility]/ZIP Co de Phone Number [facility] [address] [place] [phone] * CHLAMYDIA + GC AMPLIFIED PROBE (12/10/2016 11:48 AM CDT) Chlamydia Amplified Probe Negative Negative 12/11/2016 9:29 AM CDT [facility] GC Amplified Probe Negative Negative 12/11/2016 9:29 AM CDT [facility] Microbiology URINE / Unknown Collection / Unknown 12/10/2016 11:48 AM CDT 12/10/2016 12:15 PM CDT Narrative [facility] - 12/11/2016 9:29 AM CDT This test was developed and its performance characteristics determined by the [facility], [facility]. Female urine specimens tested by the [facility] [place] have not been cleared or approved by the U.S. Food and Drug Administration (FDA). The laboratory is regulated under the Clinical Laboratory Improvement Amendments (CLIA) as qualified to perform high-complexity testing. This test is used for clinical purposes. It should not be regarded as investigational or for research. Results based on detection/no detection of ribosomal RNA by amplified method. Fanta Dover APRN-FINANCIAL SERVICES EDUCATION CONSULTANT LAB - MICROBIOLOG Y ORDERABLES Performing Organization Address City/[facility]/ZIP Co de Phone Number [facility] [address] [place] [address], [facility] [phone] * URINE CULTURE (12/10/2016 11:48 AM CDT) Culture <10,000 CFU/mL urogenital tye CHELSI 12/12/2016 5:29 AM CDT [facility] Urine URINE SPECIMEN OBTAINED BY CLEAN CATCH PROCEDURE / Unknown Collection / Unknown 12/10/2016 11:48 AM CDT 12/10/2016 12:15 PM CDT Fanta Dover DIRECTOR OF MARKETING OPERATIONS-FINANCIAL SERVICES EDUCATION CONSULTANT LAB - MICROBIOLOG Y ORDERABLES Performing Organization Address City/[facility]/ZIP Co de Phone Number [facility] [address] [place] [address], [facility] [phone] * GLUCOSE PROTEIN KETONE URINE - POINT OF CAR (12/10/2016 11:19 AM CDT) Only the most recent of2 resultswithin the time period is included. Glucose UA neg Negative [facility] Protein UA neg Negative [facility] Ketone UA neg Negative [facility] QC Verified Yes Yes [facility] POC T TESTING Urine URINE / Unknown 12/10/2016 1 1:19 AM CDT Skye Ureña MD LAB - POINT OF CARE ORDERABLES [facility] [address] [phone] * ALPHA FETOPROTEIN BLOOD MATERNAL QUAD PANEL (11/12/2016 1:00 PM CDT) Results Report 11/17/2016 1:06 PM CDT [facility] ([facility]) Test Results *Screen Negative* 11/17/2016 1:06 PM CDT [facility] ([facility]) Gestational Age Weeks 16.3 WEEKS 11/17/2016 1:06 PM CDT [facility]) Gestational Age Based On SANTIAGO 11/17/2016 1:06 PM CDT [facility]) Comment:04/27/2017 Maternal [age] at SANTIAGO 24.8 YEARS 11/17/2016 1:06 PM CDT [facility]) Race 11/17/2016 1:06 PM CDT [facility]) Weight 139 lbs 11/17/2016 1:06 PM CDT [facility]) Insulin Dependent Diabetes No 11/17/2016 1:06 PM CDT [facility]) Multiple Gestation No 2016 1:06 PM CDT [facility] ([facility]) Alpha-Fetoprotein Value (EIA) 26.8 ng/mL 11/17/2016 1:06 PM CDT [facility]) AFP MoM Value 0.75 11/17/2016 1:06 PM CDT [facility] ([facility]) hCG Value 22350 mIU/mL 11/17/2016 1:06 PM CDT [facility] ([facility]) hCG Mom 0.59 11/17/2016 1:06 PM CDT [facility] ([facility]) Estriol Value 0.88 ng/mL 11/17/2016 1:06 PM CDT [facility] ([facility]) Estriol MoM 0.97 11/17/2016 1:06 PM CDT [facility] ([facility]) SUKHJINDER Value 149.61 pg/mL 11/17/2016 1:06 PM CDT [facility] ([facility]) Sukhjinder MoM Value 0.80 11/17/2016 1:06 PM CDT [facility] ([facility]) OSBR [place] 1 [place] [address] 11/17/2016 1:06 PM CDT [facility] ([facility]) DSR (2nd Trimester) 1 [place] [address] 11/17/2016 1:06 PM CDT [facility] ([facility]) DSR (By Age) 1 IN 1039 017 1:06 PM CDT [facility] ([facility]) T18 Risk Not increased 11/17/2016 1:06 PM CDT [facility] ([facility]) T18 (by Age) 1:4050 11/17/2016 1:06 PM CDT [facility] ([facility]) Interpretation Comment 11/17/2016 1:06 PM CDT [facility] ([facility]) Comment: Interpretation: Screen Negative This result is screen negative for OSB, Down Syndrome and Trisomy 18. The AFP MoM and patient specific risks calculated are based on the gestational age and the clinical information provided. This test can identify up to 80% of open neural tube defects. Closed neural tube defects and some open defects may not be detected by this test. The combination of maternal age, AFP, hCG, uE3, and SUKHJINDER identifies 75-80% of Down Syndrome. The combination of maternal age, AFP, hCG and uE3 identifies 60% of Trisomy 18 pregnancies. The [employer] recommends amniocentesis be offered to women age 35 and older. Recalculations are not recommended when gestational dating by LMP and ultrasound are within 10 days. Comments Comment 11/17/2016 1:06 PM CDT [facility] ([facility]) Comment: Nicolette Barraza, Ph.D., [facility] Principal Genetics P[employer]oring Machine Tender References: Available Upon Request. Multiples Of Median Cutoffs Abbreviation Definitions For AFP Elevations IDD- Insulin Dep Diabetes Newell 2.5 Black 2.8 OSBR- Open Spina Bifida IDD 2.0 Twins 4.5 Risk DSR Cutoff 1:270 DSR- Down Syndrome Risk T18 Cutoff 1:100 T18- Trisomy 18 Down Syndrome and Trisomy 18 screening are considered Investigational For further inquiries contact [employer] at [phone]. PDF . 11/17/2016 1:06 PM CDT [facility] ([facility]) Blood BLOOD SPECIMEN / Unknown Venipuncture / Unknown 11/12/2016 1:00 PM CDT 11/12/2016 1:20 PM CDT Narrative [facility] ([facility]) - 11/17/2016 1:06 PM CDT Performed at: [facility] [address] [facility], [place], [place] [id number] Senior Java Programmer: Jeanine Weber MD, Phone: [phone] Razia Tsang MD LAB - CHEMISTRY BALDEV TALBERT Performing Organization Address City/[facility]/ZIP Co de Phone Number [facility] ([facility]) [address] [place] [address] * HEMOGLOBIN ELECTROPHORESIS (11/12/2016 1:00 PM CDT) Pathologist [facility] Hemoglobin A1 97.7 97.1 - 99.1 % 11/13/2016 1:43 PM CDT [facility] Hemoglobin F 0.0 0.0 - 2.0 % 11/13/2016 1:43 PM CDT [facility] Hemoglobin S 0.0 <=0.0 % 11/13/2016 1:43 PM CDT [facility] Hemoglobin C 0.0 <=0.0 % 11/13/2016 1:43 PM CDT [facility] Hemoglobin A2 2.3 0.9 - 2.9 % 11/13/2016 1:43 PM CDT [facility] Hemoglobin E 0.0 % 11/13/2016 1:43 PM CDT [facility] Interpretation Normal Interpretation 11/13/2016 1:43 PM CDT [facility] Blood BLOOD SPECIMEN / Unknown Venipuncture / Unknown 11/12/2016 1:00 PM CDT 11/12/2016 1:20 PM CDT Razia Tsang MD LAB - CHEMISTRY BALDEV TALBERT [facility] [address] [place] [address] * (ABNORMAL) CBC W AUTO DIFFERENTIAL (11/12/2016 1:00 PM CDT) [facility] Signature WBC 10.6 4.4 - 10.7 x10E9/L 11/12/2016 1:30 PM CDT [facility] WBC Corrected x10E9/L 11/12/2016 1:30 PM CDT [facility] RBC 4.42 3.80 - 5.20 x10E12/L 11/12/2016 1:30 PM CDT [facility] Hemoglobin 12.2 12.0 - 15.6 gm/dL 11/12/2016 1:30 PM CDT [facility] Hematocrit 36.7 35.9 - 45.5 % 11/12/2016 1:30 PM CDT [facility] MCV 83.0 80.7 - 98.3 fl 11/12/2016 1:30 PM CDT [facility] MCH 27.6 26.7 - 34.0 pg 11/12/2016 1:30 PM CDT [facility] MCHC 33.2 30.8 - 35.9 gm/dL 11/12/2016 1:30 PM CDT [facility] Platelet Count 233 153 - 416 x10E9/L 11/12/2016 1:30 PM CDT [facility] RDW-CV 13.5 12.1 - 14.9 % 11/12/2016 1:30 PM CDT [facility] MPV 10.0 9.4 - 12.9 fl 11/12/2016 1:30 PM CDT [facility] [facility] Neutrophils % 73.7(H) 44.0 - 73.0 % 11/12/2016 1:30 PM CDT [facility] Lymphocytes % 16.1(L) 20.0 - 43.0 % 11/12/2016 1:30 PM CDT [facility] Monocytes % 5.6 5.0 - 13.0 % 11/12/2016 1:30 PM CDT [facility] Eosinophils % 3.5 0.0 - 6.0 % 11/12/2016 1:30 PM CDT [facility] Basophils % 0.6 0.0 - 2.0 % 11/12/2016 1:30 PM CDT [facility] Immature Granulocytes 0.5 0 - 1 % 11/12/2016 1:30 PM CDT [facility] Neutrophil Absolute 7.83(H) 2.01 - 7.14 x10E9/L 11/12/2016 1:30 PM CDT [facility] Lymphocytes Absolute 1.71 1.07 - 3.94 x10E9/L 11/12/2016 1:30 PM CDT [facility] Monocytes Absolute 0.60 0.26 - 1.07 x10E9/L 11/12/2016 1:30 PM CDT [facility] Eosinophils Absolute 0.37 0 - 0.47 x10E9/L 11/12/2016 1:30 PM CDT [facility] Basophils Absolute 0.06 0 - 0.08 x10E9/L 11/12/2016 1:30 PM CDT [facility] Immature Granulocytes Absolute 0.05 0.00 - 0.06 x10E9/L 11/12/2016 1:30 PM CDT [facility] nRBC Auto 0 /100 WBC 11/12/2016 1:30 PM CDT [facility] Blood BLOOD SPECIMEN / Unknown Venipuncture / Unknown 11/12/2016 1:00 PM CDT 11/12/2016 1:20 PM CDT Razia Tsang MD LAB - HEMATOLOGY ORD ERABLES [facility] [address] [place] [address] * PH FLUID - POCT (AMB) [facility] (08/29/2016) pH Vaginal 4.5 [facility] Vaginal swab (specimen) 08/29/2016 Shruthi Chand APRN-[facility] LAB - POINT OF CARE ORDERABLES [facility] * WET PREP - POINT OF CARE (AMB) [facility] (08/29/2016) pH Wet Prep 4.5 [facility] Yeast Wet Prep n [facility] Trichomonas Wet Prep n [facility] Bacteria Wet Prep n [facility] Whiff Test n [facility] 08/29/2016 Shruthi Chand APRN-FINANCIAL SERVICES EDUCATION CONSULTANT LAB - POINT OF CARE ORDERABLES [facility] * FUNGUS HELEN - POINT OF CARE (AMB) [facility] (08/29/2016) HELEN Prep n [facility] Fluid specimen (specimen) 08/29/2016 Shruthi Chand APRN-FINANCIAL SERVICES EDUCATION CONSULTANT LAB - POINT OF CARE ORDERABLES Performing Organization Address [facility]/ZIP Co de Phone Number [facility] * HCG URINE QUALITATIVE - POCT (IP) [facility] (08/29/2016) Test Urine Positive [facility] Urine specimen (specimen) 08/29/2016 Shruthi Chand APRN-FINANCIAL SERVICES EDUCATION CONSULTANT LAB - POINT OF CARE ORDERABLES Performing Organization Address [facility]/State/ZIP Co de Phone Number [facility]
--- OUTSIDE RECORDS SUMMARY | 2024-09-21 09:22 | XMS_ITS | Clinical Summary ---
Author Organization [facility] Address [address] [place] [address] Care Team Providers Care Pharmacy Data Analyst Name Role Phone None, Provider MD Primary Care Provider Unavaila ble Allergies No known active allergies Medications Acetaminophen 500 MG Chew Tab Chew 1 tablet by mouth every 4 (four) hours as needed (pain). Active Active Problems Problem Noted Date Diagnosed Date ([facility]) 05/06/2021 Normal spontaneous vaginal delivery ([facility]) Social History Tobacco Use Types Packs/Day Years Used Date Smoking Tobacco: Never Smokeless Tobacco: Never Tobacco Cessation:Counseling Given: Not Answered Alcohol Use Standard Drinks/Week Comments Never 0 (1 standard drink = 0.6 oz pur e alcohol) Depression Answer Date Recor ded Last EPDS Total Score 1 05/08/2021 Last EPDS Self Harm Result Hardly ever 05/08 Comments No Sex and Gender Information Value Date Recorded Sex Assigned at Not on file Legal Sex Female 2:02 PM CDT Gender Identity Not on file Sexual Orientation Not on file Last Filed Vital Signs Vital Sign Reading Time Taken Comments Blood Pressure 105/80 06/07/2021 10:26 PM INPATIENT SERVICES RN Pulse 79 06/07/2021 10:26 PM INPATIENT SERVICES RN Temperature 36.6 C (97.8 F) 06/07/2021 8:25 PM INPATIENT SERVICES RN Respiratory Rate 16 06/07/2021 8:25 PM INPATIENT SERVICES RN Oxygen Saturation 98% 06/07/2021 8:25 PM INPATIENT SERVICES RN Inhaled Oxygen Concentration - - Weight 66.2 kg (146 lb) 11/14/2022 10:06 AM CDT Height 167.6 cm (5' 6 ) 11/14/2022 10:06 AM CDT Body Mass Index 23.57 11/14/2022 10:06 AM CDT Plan of Treatment Health Maintenance Due Date Last Done Comments Cervical Cancer Screening Pa p Smear (Age 30 to 64) Every 3 Years 1992 Annual Physical 1995 Hepatitis C 2010 DTaP, Tdap and Td Vaccines ( 1 - Tdap) 2011 Hepatitis B Vaccines (1 of 3 - 19+ 3-dose series) 2011 Cervical Cancer Screening Pa p with HPV Testing (Age 30 to 64) Every 5 Years 2022 Cervical Cancer Screening with HPV 2022 COVID-19 Vaccine ( - 2023-2 5 season) 2024 Influenza Adult (#1) 2024 HPV Vaccines Aged Out No longer eligi ble based on patient's age to complete this topic Meningococcal B Vaccine Aged Out No l onger eligible based on patient's age to complete this topic Meningococcal Vaccine Aged Out No osiel hussein eligible based on patient's age to complete this topic Pneumococcal Vaccine: Pediat rics (0 to 5 Years) and At-Risk Patients (6 to 64 Years) Aged Out No longer eligible b ased on patient's age to complete this topic RSV Immunizations Under 20 Months Aged Out No longer eligible based on patient's age to complete this topic Insurance [employer] Advance Directives * Full Code (Latest Code Status on File) Date Activated Date Inactivated Comments 05/06/2021 4:39 PM 05/08/2021 6:26 PM Care Teams Pharmacy Data Analyst Relationship Specialty Start Date End Date None, Provider, PCP - General 06/07/21
--- OUTSIDE RECORDS SUMMARY | 2024-09-21 09:22 | XMS_ITS | Referral Summary ---
Author Organization [facility] Address [address] [place] [address] Care Team Providers Care Parking Meter Installer Name Role Phone Porter Rodriguez MD Primary Care Provider [phone] Allergies No known active allergies Medications ferrous sulfate 325 mg (65 mg of elemental iron) tabletIndication s:Iron Deficiency Anemia Take 1 tablet (325 mg total) by mouth 2 (two) times a day. 60 tablet 3 07/13/2018 Active HYDROcodone-acet aminophen (NORCO) 5-325 mg per tabletIndication s:Pain Take 1 tablet by mouth every 6 (six) hours as needed for pain 12 tablet 11/20/2022 Active Active Problems Problem Noted Date Diagnosed Date Iron deficiency anemia 07/13/2018 Overview (07/22/2018): Continue Fe BID with orange juice 39 weeks gestation of 03/25/2018 Overview (07/29/2018): labs UTD; GBS neg Tdap offered and declined 06/15 Continue daily PNV S/p anomaly u/s 04/22: Slight prominence of lateral cardiac ventricles that are within normal limits; scan otherwise normal S/p follow-up u/s 05/20: EFW 50th%, cardiac ventricles normal; upper normal ANNIE-recheck in 1 week S/p follow-up u/s 06/04: normal ANNIE, AGA EFW Reviewed FKCs and s/s of labor Has car seat and ped MOD: Anticipates MOF: Breast MOC: Reviewed 06/15- Desires POPs RTC in 1 week Male fetus First Trimester: [x] Dating Criteria: 2nd tri BSUS [x] Labs: O+/Imm; VZ and Rub IMM, H/H 11.8/36.5 Plt 260 [] Genetic Screening: none [] Hgb electrophoresis (if indicated) [] GC/CT, UCx [x] Pap: 2017 neg per patient [] ASA ppx [] PNBHS referral (if indicated) 2nd Trimester: [x] Anatomy ultrasound [x] CBC 05/28 [x] 1hr gtt at 24-28wks: 05/28 [x] Flu Shot (Mar-Jun) Declined 04/22 [x] Tdap (27-36wks) Declined 06/15 [] Rhogam (if Rh neg):N/A 3rd Trimester: [x] CBC/HIV/RPR/T&S 07/06 [x] GBS 07/06 [x] GC/CT (if indicated) 07/06 Counseling: [x] Method of delivery: Anticipate vaginal delivery [x] Method of contraception: POPs [x] Method of feeding: Breast Social History Tobacco Use Types Packs/Day Years Used Date Smoking Tobacco: Some Days Hookah Smokeless Tobacco: Never Tobacco Cessation:Ready to Q uit: Not Asked Alcohol Use Standard Drinks/Week Comments No 0 (1 standard drink = 0.6 oz pur e alcohol) AUDIT-C Answer Date Recorded Q1: How often do you have a drink containing alc ohol? Never 11/20/2022 Average Number of Drinks Not on file 023 Frequency of Binge Drinking Not on file 09/2022 Personal Safety Answer Date Recorded Have you ever been in or are you currently in a harmful physical or emotional relationship or is someone making you feel afraid or unsafe? Denies 09/05/2023 Comments No Sex and Gender Information Value Date Recorded Sex Assigned at Not on file Legal Sex Female 3:04 AM FINANCIAL ADVOCATE Gender Identity Not on file Sexual Orientation Not on file Last Filed Vital Signs Vital Sign Reading Time Taken Comments Blood Pressure 120/74 09/05/2023 12:00 PM FINANCIAL ADVOCATE Pulse 67 09/05/2023 12:00 PM FINANCIAL ADVOCATE Temperature 36.6 C (97.9 F) 09/05/2023 10:07 AM FINANCIAL ADVOCATE Respiratory Rate 20 09/05/2023 12:00 PM FINANCIAL ADVOCATE Oxygen Saturation 98% 09/05/2023 12:00 PM FINANCIAL ADVOCATE Inhaled Oxygen Concentration - - Weight 67 kg (147 lb 11.3 oz) 09/05/2023 10:07 A M FINANCIAL ADVOCATE Height 167.6 cm (5' 6 ) 07/01/2023 1:29 PM FINANCIAL ADVOCATE Body Mass Index 23.84 07/01/2023 1:29 PM FINANCIAL ADVOCATE Plan of Treatment Not on file Procedures Procedure Name Priority Date/Time Associated Diagnosis Comments HEPATITIS C ANTIBODY Routine Gen Lab 01/17/2017 10:50 AM CDT from Last 3 Months or Most Recently Relevant to Health Maintenance Results * Hepatitis C antibody (01/17/2017 10:50 AM CDT) Hep C Ab Nonreactive Nonreactive NE[facility] SOUSA Comment: Interpretive Data Positive and greyzone results should be confirmed by a molecular method. If positive or greyzone, a second separately collected sample should be submitted for Hepatitis C Virus RNA. Detection and Quantitation by Real-Time Reverse Toddler Nanny-PCR.Current Interpretive data was last revised on 2017. Blood specimen (specimen) 01/17/2017 10:50 AM CDT 01/17/2017 11:46 AM CDT us Annabel Frederick DOCK SUPERINTENDENT LAB MICROBIOLOGY - GEN ERAL ORDERABLES Edited Result - Final [facility] Department [place] [address] from Last 3 Months or Most Recently Relevant to Health Maintenance Insurance [facility] CHOICE PLUS [place] [employer] [facility] Care Teams Parking Meter Installer Relationship Specialty Start Date End Date Porter Rodriguez MD [address] [place] [id number] PCP - General Emergency Medicine 09/05/23
--- OUTSIDE RECORDS SUMMARY | 2024-09-21 09:22 | XMS_ITS | Clinical Summary ---
Author Organization [facility] Address [address] [place] [address] Care Team Providers Care Slat Pickler Name Role Phone Porter Rodriguez MD Primary Care Provider [phone] Allergies No known active allergies Medications ferrous [...] contraception: POPs [x] Method of feeding: Breast Surgical History Surgery Date Site/Laterality Comments MANDIBLE SURGERY 07/21/2000 - 07/20/2001 fracture Social History Tobacco Use Types Packs/Day Years [...] on file Legal Sex Female 3:04 AM WELLNESS COORDINATOR Gender Identity Not on file Sexual Orientation Not on file Obstetrics History Para Term AB IAB SAB Ectopic Multiple Livin g Live Births 3 1 1 1 Date Outcome GA Total Labor Labor/2nd/3rd Weight Sex Type Anes PTL Kerri A1 A5 Name Clin Term Last Filed Vital Signs Vital Sign Reading Time Taken Comments Blood Pressure 120/74 09/05/2023 12:00 PM WELLNESS COORDINATOR Pulse 67 09/05/2023 12:00 PM WELLNESS COORDINATOR Temperature 36.6 C (97.9 F) 09/05/2023 10:07 AM WELLNESS COORDINATOR Respiratory Rate 20 09/05/2023 12:00 PM WELLNESS COORDINATOR Oxygen Saturation 98% 09/05/2023 12:00 PM WELLNESS COORDINATOR Inhaled Oxygen Concentration - - Weight 67 kg (147 lb 11.3 oz) 09/05/2023 10:07 A M WELLNESS COORDINATOR Height 167.6 cm (5' 6 ) 07/01/2023 1:29 PM WELLNESS COORDINATOR Body Mass Index 23.84 07/01/2023 1:29 PM WELLNESS COORDINATOR Plan of Treatment Health Maintenance Due Date Last Done Comments Cervical Cancer Screening 1992 Depression Screening 1992 Varicella Vaccines (1 of 2 - 13+ 2-dose series) 2005 Hepatitis B Screening 2010 Regular Well Visit/Exam 18-64 2010 Pneumococcal vaccine <65 (1 of 2 - PCV) 2011 Influenza Vaccine (#1) 2024 DTaP/Tdap/Td Vaccine (2 - Td or Tdap) 02/21/2027 02/21/2017 Hepatitis C Screening Completed 01/17/2017 HPV Vaccines Aged Out No longer eligi ble based on patient's age to complete this topic Procedures Procedure Name Priority Date/Time Associated Diagnosis Comments HEPATITIS C ANTIBODY Routine Gen Lab 01/17/2017 10:50 AM CDT from Last 3 Months or Most Recently Relevant to Health Maintenance Results * Hepatitis C antibody (01/17/2017 10:50 AM CDT) Hep C Ab Nonreactive Nonreactive [facility] Comment: Interpretive Data Positive and greyzone results should be confirmed by a molecular method. If positive or greyzone, a second separately collected sample should be submitted for Hepatitis C Virus RNA. Detection and Quantitation by Real-Time Reverse Computer Technology Teacher-PCR.Current Interpretive data was last revised on 2017. Blood specimen (specimen) 01/17/2017 10:50 AM CDT 01/17/2017 11:46 AM CDT us Annabel Frederick DIAGNOSTIC TECHNICIAN LAB MICROBIOLOGY - GEN ERAL ORDERABLES Edited Result - Final [facility] [place] [facility] Department [place] [address] from Last 3 Months or Most Recently Relevant to Health Maintenance Insurance [facility] CHOICE PLUS [facility] H[facility]/PPO Address: [address] [address] [place] [address] [place] [employer] [facility] Care Teams Slat Pickler Relationship Specialty Start Date End Date Porter Rodriguez MD [address] [place] [id number] PCP - General Emergency Medicine 09/05/23
--- OUTSIDE RECORDS SUMMARY | 2024-09-21 09:22 | XMS_ITS | CONTINUITY OF CARE DOCUMENT ---
Author Name jovan aldana Address Unknown Organization [facility] Address [address] [place] [address] Phone [phone] Care Team Providers Care Tool Grinding Technician Name Role Phone Davei Devries MD Unavailable [phone] JENA CHAUDHARI MD Unavailable [phone] JENA CHAUDHARI MD Unavailable [phone] PROBLEMS Condition Status Date Provider Notes Cardiology examination active Davie sorensen MD Palpitations active Davie Devries MD Dizziness active Davie Devries MD Chest pain-type to be determined active Abdirizak Devries MD [place] active Davie Devries MD Vitamin D deficiency active Davie Devries MD Elevated blood pressure read ing without diagnosis of hypertension active Davie Devries MD Brain cyst active Davie Devries MD ENCOUNTERS Date Type Provider Location Encounter Diag nosis - In-person encounter Office Visit Davie Devries MD [place] [facility] - In-person encounter Office Visit Davie Devries MD [facility] Cardiology examinationPalpitationsDizzinessChest pain-type to be determinedFlushingVitamin D deficiencyElevated blood pressure reading without diagnosis of hypertensionBrain cyst VITAL SIGNS Date Observation Value Provider Body Mass Index (Ratio) 24.21 kg/m2 Ashley Tinoco blood pressure, cuff size regular Ja rret blood pressure, diastolic 71 mm[Hg] Ja rret blood pressure, systolic 100 mm[Hg] pulse rate 75 /min respiratory rate E&M 12 /min oxygen saturation, oximetry 98 % weight E&M 150 [lb_av] Eliceo y height E&M 66 [in_i] Eliceo y weight E&M 149 [lb_av] Zara Alaniz g Body Mass Index (Ratio) 24.05 kg/m2 Tomas Devries MD blood pressure, diastolic 76 mm[Hg] Margo nkLogic blood pressure, systolic 106 mm[Hg] Jennifer kLogic blood pressure, cuff size regular Ja rr blood pressure, diastolic 76 mm[Hg] Ja rret blood pressure, systolic 106 mm[Hg] pulse rate 81 /min height E&M 66 [in_i] Eliceo oxygen saturation, oximetry 98 % respiratory rate E&M 12 /min weight E&M 149 [lb_av] y ALLERGIES Allergy Name Onset Date Reaction Criticality Status POLLEN Low Criticality active HISTORY OF MEDICATION USE No Known Medication SOCIAL HISTORY Date Observation Value Provider smoking status Never smoker Viraj martin smoking status Never smoker INSURANCE PROVIDERS Payer name Policy type / Coverage type [place] red libertarian ID [facility] Medicaid [id number] ADVANCE DIRECTIVES Name Date DISCUSSED - NO DECISION MADE TREATMENT PLAN Date Name Performer Cardiology:Pt on no medications BP 100/71 today in office Viraj Tinoco Cardiology:She has n oticed a few episodes of dizziness and sensitivity to light Viraj iTnoco Cardiology:Routine s tress test normal and Echo showed normal LV function C hest pain associated with palpitations have improved since June Davie Devries MD Cardiology:Cardiac m onitor showed SR with episodes of sinus tachycardia, PACs, and PVCs H er palpitations have improved since last visit and she has had no further episodes since monitor E ncouraged patient to remain hydrated and avoid drinks such as coffee and tea P t will notify us if her palpitations begin to worsen again Davie Devries MD Cardiology:BP readin g at ED 2 weeks ago 140's, with symptoms. BP in PCP Office 90's. BP today 106/76. p t on no medications. Antonieta Guaman NP Cardiology:[place] [address]y/weekly, but pt has not started as of yet Antonieta Guaman NP Cardiology:see #1 Antonieta Manning er DATA RECOVERY PLANNER Cardiology:2 weeks a go pt had episode of feellng flushed, dizziness, palpitations, and not feeling well. She went to [facility] and had BP of 141. Pt states that all they did was an EKG and sent her home, with no medications given. The next day she presented to [facility] in [place] with similar symptoms and 'to get a second opinion' she states that her BP was normal and was discharged from ED. She followed up with PCP and her BP was low in his office 'Blood pressure was 90's.' Today BP 106/70. Pt states that 2 days, her symptoms returned with associated chest pain, described as 'pressure' 3/10, unchanged with inspiration or movement, and lasted a few minutes. pt has family history of HTN and irregular heart rate (mom), HTN (dad). No known family hx of CAD. pt states no recurrence of chest pressure. will check 1 week telesentry, echo and routine stress test Antonieta Guaman NP Cardiology:see #1 Antonieta Kerri er DATA RECOVERY PLANNER Cardiology:2 weeks a go pt had episode of feellng flushed, dizziness, palpitations, and not feeling well. She went to [facility] and had BP of 141. Pt states that all they did was an EKG and sent her home, with no medications given. The next day she presented to [facility] in [place] with similar symptoms and 'to get a second opinion' she states that her BP was normal and was discharged from ED. She followed up with PCP and her BP was low in his office 'Blood pressure was 90's.' Today BP 106/70. Pt states that 2 days, her symptoms returned with associated chest pain, described as 'pressure' 3/10, unchanged with inspiration or movement, and lasted a few minutes. pt has family history of HTN and irregular heart rate (mom), HTN (dad). No known family hx of CAD. pt states no recurrence of chest pressure. will check 1 week telesentry, echo and routine stress test Antonieta Guaman DATA RECOVERY PLANNER Cardiology Antonieta Guaman NP Date Name Monitor - Telemetry (Mobile Cardiac) Stress Routine Complete Echo HISTORY OF PROCEDURES Procedure Date Procedure Name Provider Procedure Notes S samus EKG Davie Devries MD complet ed
--- OUTSIDE RECORDS SUMMARY | 2024-09-21 09:22 | XMS_ITS | Encounter Summary ---
Author Organization [facility] Address [address] [place] [address] Care Team Providers Care Supervisory Aide Name Role Phone None, Provider MD Primary Care Provider Unavaila ble None, Provider Primary Care Provider Unavaila ble Encounter Details Date Type Department Care Team (Late st Contact Info) Description 06/05/2021 Hospital Follow-up Call [facility] [place] [address] Yasmine Gallegos, RN Social History Tobacco Use Types Packs/Day Years [...] on file Sexual Orientation Not on file COVID-19 Exposure Response Date Recorded In the last month, have you been in contact with someone who was confirmed or suspected to have Coronavirus / COVID-19? No / Unsure 06/07/2021 7:55 PM GRAPHIC COORDINATOR documented as of this encounter Functional Status * RETIRED Are you deaf or do you have serious difficulty hearing Answer Date of Assessment Author Status No 05/06/2021 7:26 PM CDT Activ e * RETIRED Are you blind or do you have serious difficulty seeing, even when wearing glasses? Answer Date of Assessment Author Status No 05/06/2021 7:26 PM CDT Activ e * Do you have serious difficulty walking or climbing stairs? Answer Date of Assessment Author Status No 05/06/2021 7:26 PM Kaylee Carballo RN Active * Do you have difficulty dressing or bathing? Answer Date of Assessment Author Status No 05/06/2021 7:26 PM Kaylee Carballo RN Active * Because of a physical, mental, or emotional condition, do you have difficulty doing errands alone such as visiting a doctor's office or shopping? Answer Date of Assessment Author Status No 05/06/2021 7:26 PM Kaylee Carballo RN Active documented as of this encounter Mental Status * Because of a physical, mental, or emotional condition, do you have serious difficulty concentrating, remembering, or making decisions? Answer Entry Date Author Status No 05/06/2021 7:26 PM Kaylee Carballo RN Active documented in this encounter Plan of Treatment Not on file documented as of this encounter Visit Diagnoses Not on filedocumented in this encounter Care Teams Supervisory Aide Relationship Specialty Start Date End Date None, ProviderMD PCP - General 05/04/21 06/06/21 None, MD Zach PCP - General 06/07/21 documented as of this encounter
--- OUTSIDE RECORDS SUMMARY | 2024-09-21 09:22 | XMS_ITS | Referral Summary ---
Author Organization [facility] [employer] Address [address] [place] [address] Care Team Providers Care Grit Blaster Name Role Phone Unavailable Primary Care Provider Unavailabl e Source Comments [facility] [employer],non-owned Affiliates and Associated Physician Practices is amultiple site organization consisting of ambulatory clinics and hospital sitesin [place], [place] and [place]. This disclosure is being madepursuant to the Care Everywhere program and may not contain all information available regarding this patient. Last updated 18.[facility] [employer] Allergies No known active allergies Medications * Be aware that medications may not be up to date on this document. Alwaysverify current medications with the patient. Medication Sig Dispensed Refills Start Date End Date Status triamcinolone acetonide (KENALOG) 0.1 % ointmentIndications:R ihsan and other nonspecific skin eruption Apply to rash 2-3x daily. 30 days supply. 80 g 4 11/07/2020 Active vitamin D, ergocalciferol, (Drisdol) 1.25 MG (56353 UT) capsule Take 1 (one) capsule by mouth 07/20/2023 Active clobetasol (Temovate) 0.05 % creamIndications:Plaq ue psoriasis Apply to affected area once daily as needed (For non-facial psoriasis rash. For daytime use (ointment at night time).) 45 g 07/31/2023 Active clobetasol (Temovate) 0.05 % ointmentIndications:P laque psoriasis Apply twice daily as needed for psoriasis, avoid face and groin 60 g 11 08/06/2023 Active calcipotriene (Dovonex) 0.005 % creamIndications:Plaq ue psoriasis Apply to affected area, twice daily. 60 g 11 08/06/2023 Active Active Problems Patient Care Coordination No te Formatting of this note migh t be different from the original. [facility] 10/2016 Problem Noted Date Diagnosed Date Allergic contact dermatitis due to other agents 11/07/2020 Rash and other nonspecific skin eruption 021 Assessment & Plan (08/09/2020 11:10 AM HEEL SPRAYER): - More eczematous in appearance today nummular eczema vs ACD, less likely PSO - Start Lidex ointment up to BID PRN to flared areas on body - Continue triamcinolone ointment to thinner areas on body PRN - Future considerations: patch testing if not improved on above regimen Fissure in skin of both feet 08/09/2020 Assessment & Plan (08/09/2020 11:10 AM HEEL SPRAYER): - Counseled patient on difficult to treat nature - Continue Vaseline ointment - Start 40% OTC urea cream, can apply under occlusion at night Supervision of normal first 09/11/2016 Overview (11/18/2016): PNL: Ab: GCT: HIV: GBS: Dating: H/H/Plt: Hgb Elec: UDS: QS: CF: Pap: Gc/Chl: UCx: Breast/Bottle: Family Planning: Quad screen negative Depression screen 09/11/2016 Overview (09/11/2016): EPDS score: Social History Tobacco Use Types Packs/Day Years [...] Comments Blood Pressure 98/60 07/31/2023 11:15 AM HEEL SPRAYER Pulse 66 07/31/2023 11:15 AM HEEL SPRAYER Temperature 36.7 C (98 F) 07/31/2023 11:15 AM HEEL SPRAYER Respiratory Rate 16 07/31/2023 11:15 AM HEEL SPRAYER Oxygen Saturation 97% 07/31/2023 11:15 AM HEEL SPRAYER Inhaled Oxygen Concentration - - Weight 66.7 kg (147 lb) 07/31/2023 11:15 AM HEEL SPRAYER Height 167.6 cm (5' 6 ) 07/31/2023 11:15 AM HEEL SPRAYER Body Mass Index 23.73 07/31/2023 11:15 AM HEEL SPRAYER Plan of Treatment Not on file Procedures Procedure Name Priority Date/Time Associated Diagnosis Comments HIV-1 HIV-2 ANTIBODY + HIV P24 AG PANEL Routine 12/10/2016 11:49 AM CDT Supervision of normal first , antepartum (HCC) from Last 3 Months or Most Recently Relevant to Health Maintenance Results * HIV-1 HIV-2 ANTIBODY + HIV P24 AG PANEL (12/10/2016 11:49 AM CDT) HIV1/2 Ab + P24 Ag Non Reactive Non Reactive 12/10/2016 7:41 PM CDT [facility] Blood BLOOD SPECIMEN / Unknown Venipuncture / Unknown 12/10/2016 11:49 AM CDT 12/10/2016 12:08 PM CDT Narrative [facility] - 12/10/2016 7:41 PM CDT No Laboratory evidence of HIV infection. [place] [facility] - CHEMISTRY O RDERABLES Performing Organization Address City/State/[facility] Co de Phone Number [facility] [address] [place] [address] from Last 3 Months or Most Recently Relevant to Health Maintenance
--- OUTSIDE RECORDS SUMMARY | 2024-09-21 09:22 | XMS_ITS | Data Portability ---
Author Organization [facility] [employer] , [facility] Address [address] [place] [address] Assessment Encounter Date Assessment Date Assessment LastModified by Organization Details LastModified Time 11/13/2022 11/13/2022 32 y.o. with approx 9 wk MAB Per ACOG Mean Sac Diameter of 25 mm > with no embryo is diagnostic of failure. TVUS today showed mean sac diameter of 43 mm. -- Discussed the common nature of SAB as up to 20% of pregnancies, the likely genetic cause, and the lack of fault or blame within these circumstances. Discussed the fact that most likely this event will minimally impact future fertility. -- Women who are Rh(D) negative and unsensitized should receive Rh(D)-immune globulin within 72 hours. For Medication Management; RhoGam should be given within 72 hours of the first misoprostol administration. -- Will collect ABO group and Rh Type, CBC, and Quant today. Discussed Management Options: Expectant Management, Medical Management, and D&C. EXPECTANT MANAGEMENT - Gestational age <13 weeks without evidence of infection/hemorr corona. - It is successful in achieving complete expulsion in approximately 80% of women. - Discussed possibility of prolonged course, may take 2-4 week. Education/Precau tions on risk of infection and bleeding. Bleeding likely will be much heavier than menses and potentially with severe cramping. - Discussed if Expectant Management fails, it will lead to Medical Management and/or D & C. MEDICAL MANAGEMENT - ACOG: Medication Up to 70 Days of Gestation -Misoprostol 800 micrograms vaginally or buccally, with one repeat dose as needed if there is no response the the first dose; 48 hours after first dose. - Most women will experience cramping/bleedin g within 4 hours of administration, bleeding will slow down within 2 hours after passing the . Should expect complete resolution of by 5 days post treatment. - Ibuprofen 800 mg PO Q 8 hours as baseline pain control. Tramadol 50 mg PO Q 6 hours PRN. Heating pad to abdomen and/or lower back PRN. - Discussed if Medical Management fails, it will lead to D & C. DILATION & CURETTAGE (D&C) - The conventional treatment for early miscarriage is a surgical procedure called dilation and curettage, or D&C. - The cervix (the opening to the uterus) is dilated, and an instrument is inserted that uses suction and/or a gentle scraping motion to remove the contents of the uterus. - D&C is generally recommended for people who do not want to wait for spontaneous passage of the , and in people with heavy bleeding or infection. - You should be able to resume most regular activities within a day or two. Mild cramping and spotting may occur for a few hours or days; cramping can be treated with NSAIDs. Plan of Care -- Return Precautions Given: Increased Bleeding- Soaking more than 1 pad in 1 hour for 2 consecutive hours, passing more than two lemon sized blood clots in 1 hour, fever/chills, severe pain, or other worrisome symptoms. -- Serum hCG testing before treatment and 1 week after treatment is an option for follow-up examination after . A serum hCG level decrease of at least 80% over 6 7 days after initiating treatment with misoprostol indicates a successful . -- Educated that she does not have to decide right now. She can go home and think about it. She will call the clinic and/or send me a message on the portal to let me know what she has decided. -- Pt would like D&C at [facility]. Message sent to schedule. [email or web address] Not available 11/13/2022 11:48:03 Plan of Treatment Reminders Order Date Submit Date Provider Last Modified By Organization Details Last Modified Time Details Appointments JACK PRIZER SONO 30 2024 10:15A M Ultrasound Diana 4 Not available Not available Not available JACK PRIZER EST 2024 11:15A M MARLENI MURRAY Not available Not available Not available Lab abo group + rh type, blood 2022 023 [facility], [address] [facility], [place], [address], 11/14/2022 22:34:26 CBC w/ auto diff 2022 023 [facility], [address] [place], [address], 11/14/2022 20:26:27 beta-HC G, quantit ative, serum or plasma 2022 023 [facility], [address] [place], [address], 11/14/2022 22:35:31 pregnan cy test, urine 2022 [email or web address] [facility], [address] [place], [address], 11/13/2022 11:45:20 Referral None recorde d. Procedures None recorde d. Surgeries None recorde d. Imaging US, transva ginal 2022 023 TARA Not available 11/13/2022 14:11:17 Medication Orders None recorde d. Patient TargetsNo targets recorded. Patient InstructionsNo instructions recorded. Reason for Referral None Reported. Results Created Date Observation Date Name Description Value Unit Range Abnormal Flag Note LastModifiedBy Organization Detail LastModifiedTime 11/15/1911/14/2022 ABO GROUP AND RH TYPE ABO group O Not Available [employer] [facility] [address] [place], [address], 11/14/2022 17:15:02 11/15/19 23 11/14/2022 ABO GROUP AND RH TYPE Rh type RH(D) POSITI VE For addit ional infor cornell munoz refer to http: //sally Bonner stDia gnost ics.c om/fa q/FAQ 111 (This link is being provi ded for infor lenin jeter/ educduncan lopez purpo ses only. ) NO COLLE CTION DATE RECEI NOAH. WE HAVE USED THE DATE THE SPECI MEN WAS RECEI NOAH BY THIS LABOR ATORY THE COLLE CTION DATE. IF THIS IS INCOR RECT, CORNELL E CONTA CT CLIEN T SERVI MIKE. PHONE NUMBE R: [phone] Not Available [employer] [facility] [address] [place], [address], 11/14/2022 17:15:02 11/14/19 23 11/14/2022 CBC (INCL UDES DIFF/ PLT) WBC 7.9 thous and/u L 4.0 - 9.8 normal Not Available [employer] [address] [place] [address], [address], 11/14/2022 12:28:35 11/14/19 23 11/14/2022 CBC (INCL UDES DIFF/ PLT) RBC 4.9 velma on/uL 3.9 - 4.9 normal Not Available [employer] [address] [place] [address], [address], 11/14/2022 12:28:35 11/14/19 23 11/14/2022 CBC (INCL UDES DIFF/ PLT) hemoglobin 13.1 g/dL 11.8 - 14.8 normal Not Available [employer] [address] [place] [address], [address], 11/14/2022 12:28:35 11/14/19 23 11/14/2022 CBC (INCL UDES DIFF/ PLT) hematocrit 40.0 % 35.5 - 44.0 normal Not Available [employer] [address] [place] [address], [address], 11/14/2022 12:28:35 11/14/19 23 11/14/2022 CBC (INCL UDES DIFF/ PLT) MCV 82.0 fL 82.0 - 99.0 normal Not [place], [address], 11/14/2022 12:28:35 11/14/19 23 11/14/2022 CBC (INCL UDES DIFF/ PLT) MCH 26.8 pg 27.2 - 32.6 low Not Available [address], [address], 11/14/2022 12:28:35 11/14/19 23 11/14/2022 CBC (INCL UDES DIFF/ PLT) MCHC 32.8 g/dL 31.5 - 35.5 normal Not Available [address], [address], 11/14/2022 12:28:35 11/14/19 23 11/14/2022 CBC (INCL UDES DIFF/ PLT) RDW-CV 13.7 % 11.5 - 14.5 normal Not Available [address], [address], 11/14/2022 12:28:35 11/14/19 23 11/14/2022 CBC (INCL UDES DIFF/ PLT) platelet 267 thous and/u L 140 - 350 normal Not Available [address], [address], 11/14/2022 12:28:35 11/14/19 23 11/14/2022 CBC (INCL UDES DIFF/ PLT) MPV 11.4 fL 9.3 - 12.4 normal Not Available [address], [address], 11/14/2022 12:28:35 11/14/19 23 11/14/2022 CBC (INCL UDES DIFF/ PLT) absolute neutrophil 5.24 thous and/u L 1.90 - 7.00 normal Not Available [address], [address], 11/14/2022 12:28:35 11/14/19 23 11/14/2022 CBC (INCL UDES DIFF/ PLT) absolute lymphocyte 1.74 thous and/u L 0.70 - 4.50 normal Not Available [address], [address], 11/14/2022 12:28:35 11/14/19 23 11/14/2022 CBC (INCL UDES DIFF/ PLT) absolute monocyte 0.46 thous and/u L 0.10 - 1.30 normal Not Available [address], [address], 11/14/2022 12:28:35 11/14/19 23 11/14/2022 CBC (INCL UDES DIFF/ PLT) absolute eosinophil 0.31 thous and/u L <0.70 normal Not Available [address], [address], 11/14/2022 12:28:35 11/14/19 23 11/14/2022 CBC (INCL UDES DIFF/ PLT) absolute basophil 0.14 thous and/u L <0.20 normal Not Available [address], [address], 11/14/2022 12:28:35 11/14/19 23 11/14/2022 CBC (INCL UDES DIFF/ PLT) absolute immature granulocyte 0.01 thous and/u L <0.03 normal Not Available [address], [address], 11/14/2022 12:28:35 11/14/19 23 11/14/2022 HCG, TOTAL , QUANT HCG, total, quant 28270 mIU/m L <5 high Refer ence Range s are for femal es aged 18 years - Adult Nonpr egnan t or preme nopau halle <5 Postm enopa usal <10 Value s from diffe rent assay metho ds may vary. The use of this assay to monit or or to diagn ose patie nts with cance r or any other condi tion unrel ated to pregn sonia has not been valid ated by the manuf actur er of this assay . Not Available [address], [address], 11/14/2022 13:05:23 11/14/19 23 11/13/2022 pregn sonia test, urine HCG positi ve Not Available [facility] [address] [facility], [place], [address], 11/13/2022 10:14:53 11/14/19 23 11/13/2022 US, trans vagin al No observ ation record ed. bnotznoa Smiley [address], [place], [address], 11/13/2022 23:21:24 Result Notes None recorded. Problems Name Problem SNOMED Code Status Onset Date Resolution Date Notes Provider Name and Address Organization Details Recorded Time Gestatio n period, 17 weeks 05051650 Completed 202001/17/2021 17 weeks gestatio n of pregnanc y; Progress : Stable Added By: Natalya Elkins Add to Current Problems : NO ProblemS tatus: Resolve Juliana jenkins, [employer] [facility] IV 3 17:00:29 Normal pregnanc y in multigra rufino 84183915080 4106 Active 2020 Encounte r for supervis ion of other normal pregnanc y, first trimeste r; Severity : Moderate Progress : Stable Added By: Jacy Dotson Add to Current Problems : NO ProblemS tatus: Resolve; Start Date : 09/30/19 Encou nter for supervis ion of other normal pregnanc y, second trimeste r; Severity : Moderate Progress : Stable Added By: Jorge Argueta Add to Current Problems : NO ProblemS tatus: Resolve; Start Date : 12/02/19 21 Encou nter for supervis ion of other normal pregnanc y, third trimeste r; Severity : Moderate Progress : Stable Added By: Lesley De La Cruz Add to Current Problems : YES ProblemS tatus: Current Juliana jenkins, [employer] [facility] IV 3 17:00:29 Gestatio n period, 10 weeks 93514322 Completed 202001/17/2021 10 weeks gestatio n of pregnanc y; Progress : Stable Added By: Jacy Dotson Add to Current Problems : NO ProblemS tatus: Resolve Juliana jenkins, [employer] [facility] 3 17:00:29 Gestatio n period, 23 weeks 19043417 Completed 202002/21/2021 23 weeks gestatio n of pregnanc y; Progress : Stable Added By: Jorge Argueta Add to Current Problems : NO ProblemS tatus: Resolve Juliana jenkins, [place] [facility] 3 17:00:29 Gestatio n period, 28 weeks 91897959 Completed 202003/15/2021 28 weeks gestatio n of pregnanc y; Progress : Stable Added By: Jorge Argueta Add to Current Problems : NO ProblemS tatus: Resolve Juliana jenkins, [place] [facility] 3 17:00:29 Gestatio n period, 32 weeks 9088316 Active 2020 32 weeks gestatio n of pregnanc y; Progress : Stable Added By: Christa Noe Add to Current Problems : YES ProblemS tatus: Current Juliana jenkins, [place] [facility] 3 17:00:29 Disorder of pregnanc y Active 2020 Disorder of amniotic fluid and membrane s, unspecif ied, third trimeste r, not applicab le or unspecif ied; Progress : Stable Added By: Christa Noe Add to Current Problems : YES ProblemS tatus: Current Juliana jenkins, [place] [facility] 3 17:00:29 Gestatio n period, 34 weeks 03772240 Active 2020 34 weeks gestatio n of pregnanc y; Progress : Stable Added By: Lesley De La Cruz Add to Current Problems : YES ProblemS tatus: Current Juliana jenkins, [place] [facility] 3 17:00:29 Antenata l screenin g for malforma tion Completed 202002/21/2021 Encounte r for antenata l screenin g for malforma tions; Progress : Stable Added By: Jorge Argueta Add to Current Problems : NO ProblemS tatus: Resolve Juliana jenkins, [place] [facility] 3 17:00:29 Gestatio n period, 39 weeks 81494932 Active 2020 39 weeks gestatio n of pregnanc y; Progress : Stable Added By: Lor Moreira Add to Current Problems : YES ProblemS tatus: Current Juliana jenkins, [employer] [facility] 3 17:00:29 Antenata l screenin g Active 2020 Encounte r for antenata l screenin g for Streptoc occus B; Progress : Stable Added By: Fanny Ronquillo Add to Current Problems : YES ProblemS tatus: Current Encounte r for other specifie d antenata l screenin g; Progress : Stable Added By: Lor Moreira Add to Current Problems : YES ProblemS tatus: Current; Start Date : 02/22/20 21 Juliana jenkins, [employer] [facility] 3 17:00:29 Gestatio n period, 38 weeks 40914198 Active 2020 38 weeks gestatio n of pregnanc y; Progress : Stable Added By: Fanny Ronquillo Add to Current Problems : YES ProblemS tatus: Current Juliana jenkins, [employer] [facility] 3 17:00:29 Screenin g for malignan t neoplasm of cervix Completed 202001/17/2021 Encounte r for screenin g for malignan t neoplasm of cervix; Progress : Stable Added By: Jorge Argueta Add to Current Problems : NO ProblemS tatus: Resolve Juliana jenkins, [employer] [facility] 3 17:00:29 Problem Notes None recorded. Procedures Surgical History Date Name Laterality Status Provider Name and Address Organization Details Recorded Time 07/21/2020 Date of Last Pap Smear completed Tramea Cassi [employer] [facility] 11/13/2022 10:56:18 Imaging Results Imaging Date Name Status LastModified by Organization Details LastModified Time 11/13/2022 US, transvaginal completed piero Reis [address], [place], [address], 11/13/2022 23:21:24 Procedure Notes None recorded. Medical Equipment None Reported. Allergies No known drug allergies Medications Name Sig Start Date Stop Date Status Note LastModified by Organization Details LastModified Time amoxicill in 500 mg capsule TAKE CAPSULE THREE TIMES DAILY UNTIL GONE 07/15 completed Not Available Not Available Not Available hydrocodo ne 5 mg-acetam inophen 325 mg tablet TAKE 1 TABLET BY MOUTH EVERY 6 HOURS NEEDED FOR PAIN 07/15 completed Not Available Not Available Not Available ergocalci ferol (vitamin D2) 1,250 mcg (50,000 unit) capsule active Not Available Not Available Not Available 28 mg-800 mcg tablet take one tablet daily 2020 active 28-800 mg-mcg oral tablet Allow Substitu tion: True Refill Denied: No Edited by: Antonieta Dexter ) on 09/30/19 Stopped by: mahesh cornell(Antonieta Parsons ) on Not Available Not Available Not Available Vitals Date Recorded Body weight Body temperature Body mass index (BMI) Body height Systolic blood pressure Diastolic blood pressure Provider Name and Address Organization Details Last Updated DateTime 3 71649.0 2 g 98.7 [degF] 23.3 kg/m2 167.64 cm 100 mm[Hg] 62 mm[Hg] Kathleen Ye [employer] [facility] 3 11:02:19 Social History Question Answer Notes LastModified by Organizat ion Details LastModified Time Tobacco Smoking Status Never Smoker Kathleen Ye [facility] [employer] [facility] 11/13/2022 10:58:50 What Is Your Level Of Alcohol Consumption? None Information not available 11/13/2022 Are You Blind Or Do You Have Difficulty Seeing? No Information not available 11/13/2022 Are You Deaf Or Do You Have Serious Difficulty Hearing? No Information not available 11/13/2022 What Type Of Diet Are You Following? REGULAR Information not available 11/13/2022 How Many Children Do You Have? 3 Information not available 11/13/2022 What Is Your Relationship Status? Information not available 11/13/2022 Are You Sexually Active? Yes Information not available 11/13/2022 What Types Of Sporting Activities Do You Participate In? Waking Information not available 11/13/2022 Do You Use Any Illicit Or Recreational Drugs? No Information not available 11/13/2022 Sex: Unknown Functional Status Question Answer Note LastModified by Organizat ion Details LastModified Time What is your exercise level? Occasional Information not available 11/13/2022 Mental Status None recorded. Family History Relationship Description Onset Age of this Age Resolved Age Notes LastModified by Organization Details LastModified Time Father No current problems or disability Not available 11/13 10:58:07 Mother No current problems or disability Not available 11/13 10:58:07 Medical History Condition Response Other Cancer N High Blood Pressure N Colon Cancer N Cytomegalovirus N Hyperthyroidism N Herpes (HSV) N Breast Cancer N Blood Transfusion N MRSA N Lung Cancer N Hypothyroidism N Depression N Incontinence N Panic Attacks N Neurological Disorder N Deep Vein Thrombosis N Anxiety Disorder N Autoimmune disease N Arthritis N Tuberculosis/Positive PPD N Shingles N Polycystic Ovarian Syndrome N Cervical Cancer N Chlamydia N Hematuria N Stroke N Varicosities N Crohn's Disease N Seasonal allergies N Alzheimer's/Dementia N COPD/Emphysema N HPV/Genital Warts N Endometriosis N IBS (Irritable Bowel Syndrome) N History of Abnormal Pap N High Cholesterol N Liver Disease N Kidney Infection N Fibromyalgia N Ulcer N Kidney Disease N HIV N Gallbladder disease N Sickle Cell Disease/Trait N Von Willebrand disease N ADD/ADHD N Eating Disorder N Anemia N Diabetes Mellitus (non-insulin dependent ) N Ovarian Problems N Multiple Sclerosis N Gonorrhea N Frequent Urinary Tract infections N Osteopenia N Headaches/migraines N GERD (reflux) N Ovarian Cancer N Diabetes (insulin dependent) N Seizures/Epilepsy N Fibroids N Heart Attack N Asthma N Lupus N Endometrial Cancer N Rubella N Blood Clotting Disorder N Bipolar Disorder N Diabetes Mellitus (during ) N Ulcerative Colitis N Hepatitis N Heart Disease N Pulmonary Embolism N RPR N Chicken Pox N Osteoporosis N Gynecological History Statement/Question Response Flow Moderate Date of LMP 07/21/2022 Date of Last Pap Smear 07/21/2020 Duration of Flow (days) 6 Current Control Method None Age at Menarche 15 Obstetrics History GPAL:G 3 P 3 0 0 3 Type Value Full Term 3 Living 3 Total 3 Past Encounters Encounter ID Performer Location Encounter Start Date Encounter Closed Date Diagnosis/Indication Diagnosis SNOMED-CT Code Diagnosis ICD10 Code Diagnosis Note [id number] TERESA VOSS [facility] [address] [place] [address] 11/13/2022 10:16:58 11/13/2022 16:26:07 test positive [id number] Z32.01 Missed miscarriage 86238 004 O02.1 Health Concerns Section Related Observation LastModified by Organization Detai ls LastModified Time None Recorded Concern Status LastModified by Organization Details LastModified Time None Recorded Advance Directives Directive None Recorded Payers Encounter Date Sequence Insurance Name Policy Number Policy Rees Covered Member ID Rees Member ID Guarantor Name 11/13/2022 1 [facility] ON OR AFTER 01/18/21 (MEDICAID REPLACEMENT - HMO) Prachi Rodriguez [id number] Prachi Rodriguez Notes Date Note Type Note Provider Name and Address Organization Details Recorded Time 11/13/2022 text/html Patient is here for confirmation with u/s LMP 07/21/2022 TERESA VOSS [address] [place], [address] 11/13/2022 11:48:26 OBGyn Episode Ob Episode Information Episode Created Date Number of Fetuses Patient Bloodtype Patient rh Status Prepregnancy Weight lbs Domestic Partner Domestic Partner Phone Father Name Dehydrogenation Operator Status 10/05/19 22 1 CLOSED Fetus Data First Name Last Name Admitted to NICU Weight (g) Sex Living Outcome Pediatric Complications Fetus ID Race Codes Race Delivery Type 2721.55 2 F [id number] Andrea Calculation Initial Andrea Date Initial Exam Date Initial Exam Provider Initial Ultrasound Date Last Menstrual Period Date Ultra Sound Weeks Gestation 0 Eighteen To Twenty Week Andrea Update Ultra Sound Date Fundal Height At Umbil Quickening Date Ultra Sound Latest Weeks Gestation Final Andrea Confirmed By Final Andrea Confirmed Date Final Andrea Date Ultra Sound Latest Days Gestation 0 0 Menstrual History Last Menstrual Date Menses Monthly On Bcp Conception Prior Menses Frequency Hcg Plus Date Menarche Onset Age Delivery Information Delivery Date Delivery Type Labor Anesthesia Weeks Gestation Incision Type Labor Labor Length Hrs Delivered By Post Complications Tubal Sterilization Discharge Date Comments 7 285 false Discharge Information Feeding Method Contraceptive Method Maternal HG B and HCT Levels Ob Episode Information Episode Created Date Number of Fetuses Patient Bloodtype Patient rh Status Prepregnancy Weight lbs Domestic Partner Domestic Partner Phone Father Name Dehydrogenation Operator Status 10/05/19 22 1 CLOSED Fetus Data First Name Last Name Admitted to NICU Weight (g) Sex Living Outcome Pediatric Complications Fetus ID Race Codes Race Delivery Type 3175.14 [phone] M [id number] Andrea Calculation Initial Andrea Date Initial Exam Date Initial Exam Provider Initial Ultrasound Date Last Menstrual Period Date Ultra Sound Weeks Gestation 0 Eighteen To Twenty Week Andrea Update Ultra Sound Date Fundal Height At Umbil Quickening Date Ultra Sound Latest Weeks Gestation Final Andrea Confirmed By Final Andrea Confirmed Date Final Andrea Date Ultra Sound Latest Days Gestation 0 0 Menstrual History Last Menstrual Date Menses Monthly On Bcp Conception Prior Menses Frequency Hcg Plus Date Menarche Onset Age Delivery Information Delivery Date Delivery Type Labor Anesthesia Weeks Gestation Incision Type Labor Labor Length Hrs Delivered By Post Complications Tubal Sterilization Discharge Date Comments 9 273 false Discharge Information Feeding Method Contraceptive Method Maternal HG B and HCT Levels Ob Episode Information Episode Created Date Number of Fetuses Patient Bloodtype Patient rh Status Prepregnancy Weight lbs Domestic Partner Domestic Partner Phone Father Name Dehydrogenation Operator Status 11/14/19 23 1 CLOSED Fetus Data First Name Last Name Admitted to NICU Weight (g) Sex Living Outcome Pediatric Complications Fetus ID Race Codes Race Delivery Type 3175.14 4 Full Term [id number] Andrea Calculation Initial Andrea Date Initial Exam Date Initial Exam Provider Initial Ultrasound Date Last Menstrual Period Date Ultra Sound Weeks Gestation 0 Eighteen To Twenty Week Andrea Update Ultra Sound Date Fundal Height At Umbil Quickening Date Ultra Sound Latest Weeks Gestation Final Andrea Confirmed By Final Andrea Confirmed Date Final Andrea Date Ultra Sound Latest Days Gestation 0 0 Menstrual History Last Menstrual Date Menses Monthly On Bcp Conception Prior Menses Frequency Hcg Plus Date Menarche Onset Age Delivery Information Delivery Date Delivery Type Labor Anesthesia Weeks Gestation Incision Type Labor Labor Length Hrs Delivered By Post Complications Tubal Sterilization Discharge Date Comments 9 Discharge Information Feeding Method Contraceptive Method Maternal HG B and HCT Levels Ob Episode Information Episode Created Date Number of Fetuses Patient Bloodtype Patient rh Status Prepregnancy Weight lbs Domestic Partner Domestic Partner Phone Father Name Dehydrogenation Operator Status 11/14/19 23 1 CLOSED Fetus Data First Name Last Name Admitted to NICU Weight (g) Sex Living Outcome Pediatric Complications Fetus ID Race Codes Race Delivery Type 3628.73 [id number] Full Term [id number] Andrea Calculation Initial Andrea Date Initial Exam Date Initial Exam Provider Initial Ultrasound Date Last Menstrual Period Date Ultra Sound Weeks Gestation 0 Eighteen To Twenty Week Andrea Update Ultra Sound Date Fundal Height At Umbil Quickening Date Ultra Sound Latest Weeks Gestation Final Andrea Confirmed By Final Andrea Confirmed Date Final Andrea Date Ultra Sound Latest Days Gestation 0 0 Menstrual History Last Menstrual Date Menses Monthly On Bcp Conception Prior Menses Frequency Hcg Plus Date Menarche Onset Age Delivery Information Delivery Date Delivery Type Labor Anesthesia Weeks Gestation Incision Type Labor Labor Length Hrs Delivered By Post Complications Tubal Sterilization Discharge Date Comments 1 Discharge Information Feeding Method Contraceptive Method Maternal HG B and HCT Levels Ob Episode Information Episode Created Date Number of Fetuses Patient Bloodtype Patient rh Status Prepregnancy Weight lbs Domestic Partner Domestic Partner Phone Father Name Dehydrogenation Operator Status 11/14/19 23 1 CLOSED Fetus Data First Name Last Name Admitted to NICU Weight (g) Sex Living Outcome Pediatric Complications Fetus ID Race Codes Race Delivery Type 2721.55 2 Full Term [id number] Andrea Calculation Initial Andrea Date Initial Exam Date Initial Exam Provider Initial Ultrasound Date Last Menstrual Period Date Ultra Sound Weeks Gestation 0 Eighteen To Twenty Week Andrea Update Ultra Sound Date Fundal Height At Umbil Quickening Date Ultra Sound Latest Weeks Gestation Final Andrea Confirmed By Final Andrea Confirmed Date Final Andrea Date Ultra Sound Latest Days Gestation 0 0 Menstrual History Last Menstrual Date Menses Monthly On Bcp Conception Prior Menses Frequency Hcg Plus Date Menarche Onset Age Delivery Information Delivery Date Delivery Type Labor Anesthesia Weeks Gestation Incision Type Labor Labor Length Hrs Delivered By Post Complications Tubal Sterilization Discharge Date Comments 7 Discharge Information Feeding Method Contraceptive Method Maternal HG B and HCT Levels
--- OUTSIDE RECORDS SUMMARY | 2024-09-21 09:22 | XMS_ITS | Clinical Summary ---
Author Organization [facility] Address [address] [place] [id number] Phone Care Team Providers Care Bushwalking Guide Name Role Phone Porter Rodriguez MD Primary Care Provider [phone] Allergies No known active allergies Medications Medication Sig Dispensed Refills Start Date End Date Status ergocalciferol (VITAMIN D-2) 1.25 MG (72770 UT) capsule Take 50,000 Units by mouth 1 (one) time per week Active calcipotriene (DOVONOX) 0.005 % cream Apply topically daily Active clobetasol (TEMOVATE) 0.05 % cream Apply topically daily Active Active Problems Problem Noted Date Diagnosed Date Urinary tract infectious disease 11/19/2023 Proteinuria 11/17/2023 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 Resolved Problems Problem Noted Date Diagnosed Date Resolved Date Iron deficiency anemia 10/15/202311/16 Vitamin D deficiency 10/15/2023 024 Acute renal insufficiency 10/15/2023 Family History Medical History Relation Comments Diabetes Father Hypertension Father Diabetes Mother Cancer Other Diabetes Other Heart disease Other Hyperlipidemia Other Thyroid disease Other Relation Status Comments Father Mother Other Social History Tobacco Use Types Packs/Day Years Used Date Smoking Tobacco: Every Day Tobacco Cessation:Ready to Q uit: Not Asked; Counseling Given: Not Answered Comments:Hookah tobacco use Alcohol Use Standard Drinks/Week Comments Not Currently 0 (1 standard drink = 0.6 oz pur e alcohol) Sex and Gender Information Value Date Recorded Sex Assigned at Not on file Gender Identity Not on file Sexual Orientation Not on file Last Filed Vital Signs Vital Sign Reading Time Taken Comments Blood Pressure 116/80 11/19/2023 2:54 PM CDT Pulse 75 11/19/2023 2:54 PM CDT Temperature - - Respiratory Rate - - Oxygen Saturation - - Inhaled Oxygen Concentration - - Weight 66.7 kg (147 lb) 11/19/2023 2:54 PM CDT Height 170.2 cm (5' 7 ) 11/19/2023 2:54 PM CDT Body Mass Index 23.02 11/19/2023 2:54 PM CDT Plan of Treatment Health Maintenance Due Date Last Done Comments Pneumococcal PPSV23 Highest Risk Adult (1 of 3 - PCV13 ) 2011 Influenza Vaccine (#1) 2024 Care Teams Bushwalking Guide Relationship Specialty Start Date End Date Porter Rodriguez MD PCP - General 10/15/23
--- OUTSIDE RECORDS SUMMARY | 2024-09-21 09:22 | XMS_ITS | Clinical Summary ---
Author Organization [facility] Address [address] [place] [address] Care Team Providers Care Loan Coordinator Name Role Phone Unavailable Primary Care Provider Unavailabl e Source Comments [facility],non-owned Affiliates and Associated Physician Practices is amultiple site organization consisting of ambulatory clinics and hospital sitesin [place], [place], [place] and [place]. This disclosure is being madepursuant to the Care Everywhere program and may not contain all information available regarding this patient. Last updated 18.[facility] Allergies No known active allergies Medications * [...] Active vitamin D, ergocalciferol, (Drisdol) 1.25 MG (16968 UT) capsule Take 1 (one) capsule by [...] 021 Assessment & Plan (08/09/2020 11:10 AM MANAGER OF PRODUCTION): - More eczematous in appearance today nummular eczema vs ACD, less likely PSO - Start Lidex ointment up to BID PRN to flared areas on body - Continue triamcinolone ointment to thinner areas on body PRN - Future considerations: patch testing if not improved on above regimen Fissure in skin of both feet 08/09/2020 Assessment & Plan (08/09/2020 11:10 AM MANAGER OF PRODUCTION): - Counseled patient on difficult to treat nature - Continue Vaseline ointment - Start 40% OTC urea cream, can apply under occlusion at night Supervision of normal first 09/11/2016 Overview (11/18/2016): PNL: Ab: GCT: HIV: GBS: Dating: H/H/Plt: Hgb Elec: UDS: QS: CF: Pap: Gc/Chl: UCx: Breast/Bottle: Family Planning: Quad screen negative Depression screen 09/11/2016 Overview (09/11/2016): EPDS score: Family History Medical History Relation Name Comments Eczema Brother Hypertension Father None Known Maternal Aunt None Known Maternal Grandfather None Known Maternal Grandmother None Known Maternal Uncle Diabetes Mother None Known Other None Known Paternal Aunt None Known Paternal Grandfather None Known Paternal Grandmother None Known Paternal Uncle Eczema Sister Asthma Neg Hx CVA Neg Hx Cancer - Breast Neg Hx Cancer - Other Neg Hx Cancer - Skin, Melanoma Neg Hx Cancer - Skin, Non Melanoma Neg Hx Hemophilia Neg Hx Psoriasis Neg Hx Relation Name Status Comments Brother Father Maternal Aunt Maternal Grandfather Maternal Grandmother Maternal Uncle Mother Other Paternal Aunt Paternal Grandfather Paternal Grandmother Paternal Uncle Sister Social History Tobacco Use Types Packs/Day Years [...] Comments Blood Pressure 98/60 07/31/2023 11:15 AM MANAGER OF PRODUCTION Pulse 66 07/31/2023 11:15 AM MANAGER OF PRODUCTION Temperature 36.7 C (98 F) 07/31/2023 11:15 AM MANAGER OF PRODUCTION Respiratory Rate 16 07/31/2023 11:15 AM MANAGER OF PRODUCTION Oxygen Saturation 97% 07/31/2023 11:15 AM MANAGER OF PRODUCTION Inhaled Oxygen Concentration - - Weight 66.7 kg (147 lb) 07/31/2023 11:15 AM MANAGER OF PRODUCTION Height 167.6 cm (5' 6 ) 07/31/2023 11:15 AM MANAGER OF PRODUCTION Body Mass Index 23.73 07/31/2023 11:15 AM MANAGER OF PRODUCTION Plan of Treatment Health Maintenance Due Date Last Done Comments PAP SMEAR 1992 HEPATITIS C SCREENING 06/12/2010 DTAP/TDAP/TD VACCINES (1 - Tdap) 2011 HEPATITIS B VACCINE (1 of 3 - 19+ 3-dose series) 2011 COVID-19 VACCINE (1 - 2023-2 5 season) 2024 INFLUENZA VACCINE (#1) 2024 DEPRESSION SCREENING 07/21/2024 ZOSTER VACCINE (1 of 2) 2042 HIV SCREENING Completed 12/10/2016 HIB VACCINE Aged Out No longer eligi ble based on patient's age to complete this topic HPV VACCINE Aged Out No longer eligi ble based on patient's age to complete this topic MENINGOCOCCAL (Group B) VACCINE Aged Out No longer eligible based on patient's age to complete this topic MENINGOCOCCAL VACCINE Aged Out No osiel hussein eligible based on patient's age to complete this topic PNEUMOCOCCAL VACCINE Aged Out No long er eligible based on patient's age to complete [...] Reactive Non Reactive 12/10/2016 7:41 PM CDT [facility] Blood BLOOD SPECIMEN / Unknown Venipuncture / Unknown 12/10/2016 11:49 AM CDT 12/10/2016 12:08 PM CDT Narrative [facility] - 12/10/2016 7:41 PM CDT No Laboratory evidence of HIV infection. Fanta Dover FRONT DESK SPECIALIST-STUDENT ACCOUNTS COORDINATOR LAB - CHEMISTRY O RDERABLES Performing Organization Address City/State/[facility] Co de Phone Number [facility] [place] [place] [address] from Last 3 Months or Most Recently Relevant to Health Maintenance
[2024-09-21 09:31] LABS: Alanine Aminotransferase 15 U/L (6-35); Albumin Level 4.9 g/dL (3.5-5.1); Alkaline Phosphatase 68 U/L (38-126); Anion Gap 14 mmol/L (4-12); Aspartate Amino Transferase 24 U/L (14-36); Bilirubin,Total 0.9 mg/dL (0.2-1.3); Blood Urea Nitrogen 7 mg/dL (7-17); Calcium 9.6 mg/dL (8.4-10.2); Carbon Dioxide 22 mmol/L (22-30); Chloride 99 mmol/L (98-107); Estimated CRCL calculation 122 ml/min; Estimated Glomerular Filt Rate > 60; Glucose 91 mg/dL (65-110); Lipase 114 U/L (23-300); Potassium 3.6 mmol/L (3.4-5.0); Sodium 135 mmol/L (137-145)
[2024-09-21 09:33] LABS: Add Urine Microscopic? YES; Appearance Urine Cloudy (Clear); Bacteria Urine 3+ /hpf; Bilirubin Urine 1+ (Negative); Blood Urine Trace (Negative); Color Urine Dark Yellow (Yellow); Glucose Urine UA Negative (Negative); Ketones Urine 4+ mg/dL (Negative); Leukocyte Esterase Ur 2+ LEU/UL (Negative); Need Manual Microscopic Reviewed; Nitrate Urine Negative (Negative); Protein Urine 1+ mg/dL (Negative); Squamous Epithelial Cell Urine Many /hpf (Few); WBC Urine 21-50 /hpf (0-3); pH Urine 5.5 (5.0-9.0)
--- NOTE | 2024-09-21 09:44 | ED.NAVMDI ---
HPI - Nausea/Vomiting/Diarrhea General Chief complaint: Nausea/Vomiting/Diarrhea Stated complaint: n/v, Time Seen by Provider: 09/21/24 09:08 Source: patient Mode of arrival: ambulatory Limitations: no limitations History of Present Illness HPI Narrative: This is a 34 year old female that presents to the ER for nausea and vomiting. Ongoing over the last week. Reports some diarrhea as well. Reports she is currently . She has not seen her OB yet. Does report some dysuria. Reports her LMP was 08/01. Denies fevers. Related Data Allergies Allergy/AdvReac Type Severity Reaction Status Date / Time No Known Allergies Allergy Verified 09/21/24 09:02 Review of Systems Review of Systems: CONSTITUTIONAL: Denies fever GASTROINTESTINAL: Reports nausea, vomiting, and diarrhea. GENITOURINARY: Reports dysuria All systems reviewed & are unremarkable except as noted in HPI and below PMFSH Surgical History Surgical History History of dilation and curettage 2022 Family History Family History Father Hypertension Diabetes mellitus COPD (chronic obstructive pulmonary disease) Mother Hypertension Diabetes mellitus Social History Social History (Updated 07/29/24 @ 09:33 by Teto Keane MA) Smoking status: Unknown if ever smoked Smokeless tobacco user: other Additional smoking assessment comments: hookah Alcohol intake: never Substance use: never Substance use type: does not use Do You Feel Safe in your Home?: Yes Lack of Transportation: No Lack of Food: Never True Current Housing: I Have Housing Concerned About Future Housing: No Difficulty Paying Gas/Electric Bills: No Difficulty Paying for Meds: No Currently Unemployed: Decline to Answer Education: High School Diploma/GED Difficulty w/ Childcare or Family Care: No Living arrangements: with family Occupation/Education: occupation Gender identity (if verbalized by the patient): Female Sexual Orientation (if Verbalized by the Patient): Straight or Heterosexual Exam Narrative: GENERAL: Well-appearing, well-nourished, and in no acute distress. HEAD: Normocephalic, atraumatic. EYES: EOMI. CHEST: Clear to auscultation. No respiratory distress. No wheezes rales or rhonchi HEART: Regular rate and rhythm. No murmur heard. Normal peripheral pulses. ABDOMEN: Soft, nontender, nondistended, normal active bowel sounds. EXTREMITIES: Normal range of motion. No edema. SKIN: Warm, dry, no rash. NEURO: No focal deficits. Alert and oriented x3. PSYCH: Normal mood and affect Course Course Emergency Course: Patient updated on workup and agrees with plan of care Vital Signs Vital signs: Vital Signs Temperature 97.6 F 09/21/24 09:00 Pulse Rate 83 09/21/24 09:00 Respiratory Rate 18 09/21/24 09:00 Blood Pressure 112/77 09/21/24 09:00 Pulse Oximetry 100 09/21/24 09:00 Oxygen Delivery Room Air 09/21/24 09:00 Temperature 97.6 F 09/21/24 09:00 Pulse Rate 77 09/21/24 11:01 Respiratory Rate 16 09/21/24 11:01 Blood Pressure 101/69 09/21/24 11:01 Pulse Oximetry 98 09/21/24 11:01 Oxygen Delivery Room Air 09/21/24 09:00 MDM - Nausea/Vomiting/Diarrhea MDM Narrative Medical decision making narrative: Patient presents to the emergency department for nausea and vomiting, ongoing over the last week. Currently about 7 weeks by LMP. She is afebrile and nontoxic appearing. CBC with mild leukocytosis. Metabolic panel without concerning findings. Urine with possible evidence of infection. This will be sent for culture. Patient given 1st dose of antibiotics IV in the ER. Obstetrics ultrasound shows single living fetus with heart rate of 119. Gestational age by ultrasound 6 weeks and 6 days. A few small subchorionic hematomas. Patient updated on her workup and agrees with plan of care. Tolerating oral intake. She is to follow up with her OB. She was given warnings to return to the ER Differential Diagnosis Differential diagnosis: Likely gastroenteritis, dehydration and other (UTI, , influenza, covid) Lab Data Attestation: I reviewed the patient's lab results. 09/21/24 09:12 09/21/24 09:12 Labs: Lab Results 09/21/24 09/21/24 09/21/24 Range/Units 08:57 09:12 09:19 WBC 11.1 H (4.5-10.0) K/mm3 RBC 5.32 (4.2-5.4) M/mm3 Hgb 14.0 (12.0-15.0) g/dL Hct 42.5 (37.0-47.0) % MCV 79.9 L (80-100) fl MCH 26.3 (26-34) pg MCHC 32.9 (32-36) g/dl RDW 13.3 (11.5-14.5) % Plt Count 254 (150-375) k/mm3 MPV 10.6 H (7.4-10.4) fl Immature Gran % (Auto) 0.4 (0-0.5) % Neut % (Auto) 78.4 H (45.5-73.1) % Lymph % (Auto) 14.6 L (18.3-44.2) % [place] % (Auto) 5.3 (2.6-8.5) % Eos % (Auto) 0.9 (0-4.4) % Baso % (Auto) 0.4 (0.2-1.2) % Lymph # (Auto) 1.63 (0.9-3.2) K/mm3 [place] # (Auto) 0.6 (0.1-0.6) K/mm3 Eos # (Auto) 0.1 (0-0.3) K/mm3 Baso # (Auto) 0.1 (0.0-0.1) K/mm3 Abs Immat Gran (auto) 0.04 H (0.00-0.031) K/mm3 Absolute Neuts (auto) 8.7 H (1.3-6.7) K/mm3 Absolute Nucleated RBC 0.000 (0.0-0.012) K/mm3 Nucleated RBC % 0.0 (0.0-0.2) % Sodium 135 L (137-145) mmol/L Potassium 3.6 (3.4-5.0) mmol/L Chloride 99 (98-107) mmol/L Carbon Dioxide 22 (22-30) mmol/L Anion Gap 14 H (4-12) mmol/L BUN 7 D (7-17) mg/dL Creatinine 0.52 L (0.7-1.0) mg/dL Estim Creat Clear Calc 122 ml/min Estimated GFR > 60 (59 - ) Glucose 91 (65-110) mg/dL Calcium 9.6 (8.4-10.2) mg/dL Total Bilirubin 0.9 (0.2-1.3) mg/dL AST 24 (14-36) U/L ALT 15 (6-35) U/L Alkaline Phosphatase 68 (38-126) U/L Total Protein 9.0 H (6.3-8.2) g/dL Albumin 4.9 (3.5-5.1) g/dL Lipase 114 (23-300) U/L Beta HCG, Quant 553459.00 mIU/ML Urine Color Dark yellow (Yellow) Urine Appearance Cloudy H (Clear) Urine pH 5.5 (5.0-9.0) Ur Specific [place] 1.030 (1.001-1.035) Urine Protein 1+ H (Negative) mg/dL Urine Glucose (UA) Negative (Negative) mg/dL Urine Ketones 4+ H (Negative) mg/dL Ur Blood (Man) Trace (Negative) Urine Nitrate Negative (Negative) Urine Bilirubin 1+ H (Negative) Urine Urobilinogen 1.0 (<2.0) mg/dL Add Ur Microanalysis Reviewed Leukocyte Esterase Rfl 2+ H (Negative) YESSENIA/UL Urine RBC 3-5 H (0-2) /hpf Urine WBC 21-50 H (0-3) /hpf Ur Squamous Epith Cells Many H (Few) /hpf Urine Bacteria 3+ H /hpf Urine Casts 3-5 POC Urine HCG, Qual Positive (Negative) Influenza A (RT-PCR) Negative (Negative) Influenza B (RT-PCR) Negative (Negative) SARS-CoV-2 RNA (RT-PCR) Negative (Negative) Imaging Data Radiologist's impression: ITS Impressions Obstetrics Ultrasound 09/21/24 11:11 IMPRESSION: 1. Single living fetus with heart rate of 119 bpm. 2. Gestational age by ultrasound of 6 weeks 6 day(s) +/- 3 day(s) with ultrasound estimated date of delivery (SANTIAGO) of 05/11/2025. 3. A few small subchorionic hematomas, the largest measuring 17 x 3 mm. Critical Care Time Critical Care Time Critical Care Time: No Discharge Plan Discharge Clinical Impression: Acute UTI, Nausea and vomiting, , Subchorionic hematoma in first trimester Patient Disposition: Home, Self-Care Condition: Improved Instructions: Antibiotic Form, (ED), Urinary Tract Infection in (ED) Additional Instructions: Return to the ER if you experience fever, chest pain, shortness of breath, abdominal pain with nausea and vomiting, you are unable to keep down liquids or solids, pelvic cramping, vaginal bleeding, or any other symptoms that are concerning to you Take a Vitamin B6 and Unisom (25mg tab) nightly. You can get these medications over the counter. This will help prevent nausea. Reglan as needed for nausea. Small, frequent meals. [place] diet. Remain well hydrated. Take cephalexin as prescribed Follow up with your OB Patient Language: Northern Irish Prescriptions: New metoclopramide HCl 5 mg tablet 5 mg PO Q6H PRN (Reason: nausea and vomiting) Qty: 14 0RF cephalexin 500 mg capsule 500 mg PO Q6H 4 Days Qty: 16 0RF Follow-up/Referrals: Desire Tejada MD [Physician] - Porter Rodriguez MD [Primary Care Provider] -
--- OUTSIDE RECORDS SUMMARY | 2024-09-21 09:49 | XMS_ITS | Clinical Summary ---
Author Organization [facility] Address [address] [place] [address] Care Team Providers Care Suction Roller Name Role Phone Porter Rodriguez MD Primary Care Provider [phone] Allergies No known active allergies Medications ferrous [...] on file Legal Sex Female 3:04 AM MANUAL PLATE FILLER Gender Identity Not on file Sexual Orientation Not on file Obstetrics History Para Term AB IAB SAB Ectopic Multiple Livin g Live Births 3 1 1 1 Date Outcome GA Total Labor Labor/2nd/3rd Weight Sex Type Anes PTL Kerri A1 A5 Name Clin Term Last Filed Vital Signs Vital Sign Reading Time Taken Comments Blood Pressure 120/74 09/05/2023 12:00 PM MANUAL PLATE FILLER Pulse 67 09/05/2023 12:00 PM MANUAL PLATE FILLER Temperature 36.6 C (97.9 F) 09/05/2023 10:07 AM MANUAL PLATE FILLER Respiratory Rate 20 09/05/2023 12:00 PM MANUAL PLATE FILLER Oxygen Saturation 98% 09/05/2023 12:00 PM MANUAL PLATE FILLER Inhaled Oxygen Concentration - - Weight 67 kg (147 lb 11.3 oz) 09/05/2023 10:07 A M MANUAL PLATE FILLER Height 167.6 cm (5' 6 ) 07/01/2023 1:29 PM MANUAL PLATE FILLER Body Mass Index 23.84 07/01/2023 1:29 PM MANUAL PLATE FILLER Plan of Treatment Health Maintenance Due Date [...] CDT) Hep C Ab Nonreactive Nonreactive [facility] Comment: Interpretive Data Positive and greyzone results should be confirmed by a molecular method. If positive or greyzone, a second separately collected sample should be submitted for Hepatitis C Virus RNA. Detection and Quantitation by Real-Time Reverse Frame Coverer-PCR.Current Interpretive data was last revised on 2017. Blood specimen (specimen) 01/17/2017 10:50 AM CDT 01/17/2017 11:46 AM CDT us Ananbel Frederick STATE ATTORNEY LAB MICROBIOLOGY - GEN ERAL ORDERABLES Edited Result - Final [facility] [place] [facility] Department [place] [address] from Last 3 Months or Most Recently Relevant to Health Maintenance Insurance [facility] H[facility]/PPO Address: [address] [address] [place] [address] [place] [facility] Care Teams Suction Roller Relationship Specialty Start Date End Date Porter Rodriguez MD [address] [place] [id number] PCP - General Emergency Medicine 09/05/23
--- OUTSIDE RECORDS SUMMARY | 2024-09-21 09:50 | XMS_ITS | CONTINUITY OF CARE DOCUMENT ---
Author Name jovan aldana Address Unknown Organization [facility] Address [address] [place] [address] Phone [phone] Care Team Providers Care Shipping/Receiving Clerk Name Role Phone Davie Devries MD Unavailable JENA CHAUDHARI MD Unavailable [phone] JENA CHAUDHARI MD Unavailable [phone] PROBLEMS Condition Status Date Provider Notes Cardiology examination active Davie sorensen MD Palpitations active Davie Devries MD Dizziness active Davie Devries MD Chest pain-type to be determined active Abdirizak Devries MD [place] active Davie Devries MD Vitamin D deficiency active Davie Devires MD Elevated blood pressure read ing without diagnosis of hypertension active Davie Devries MD Brain cyst active aDvie Devries MD ENCOUNTERS Date Type Provider Location Encounter Diag nosis - In-person encounter Office Visit Davie Devries MD [facility] - In-person encounter Office Visit Davie Devries MD [facility] Cardiology examinationPalpitationsDizzinessChest pain-type to be determinedFlushingVitamin [...] Payer name Policy type / Coverage type [place] [employer] party ID [facility] ([facility] Medicaid [id number] ADVANCE DIRECTIVES Name Date DISCUSSED - NO DECISION MADE TREATMENT PLAN Date Name Performer Cardiology:Pt on no medications BP 100/71 today in office Viraj Tinoco Cardiology:She has n oticed a few episodes of dizziness and sensitivity to light Viraj Tinoco Cardiology:Routine s tress test normal and Echo [...] Guaman NP Cardiology:PCP [place] pt on 32730p/weekly, but pt has not started as of yet Antonieta Guaman NP Cardiology:see #1 Antonieta Manning er MOLDER HELPER Cardiology:2 weeks a go pt had episode of feellng flushed, dizziness, palpitations, and not feeling well. She went to [facility] and had BP of 141. Pt states that all they did was an EKG and sent her home, with no medications given. The next day she presented to [facility] in [place] with similar symptoms and 'to get a [...] Guaman NP Cardiology:see #1 Antonieta Kerri er MOLDER HELPER Cardiology:2 weeks a go pt had episode of feellng flushed, dizziness, palpitations, and not feeling well. She went to [facility] and had BP of 141. Pt states that all they did was an EKG and sent her home, with no medications given. The next day she presented to [facility] in [place] with similar symptoms and 'to get a [...] echo and routine stress test Antonieta Guaman MOLDER HELPER Cardiology Antonieta Guaman NP Date Name Monitor - Telemetry (Mobile Cardiac) Stress Routine Complete Echo HISTORY OF PROCEDURES Procedure Date Procedure Name Provider Procedure Notes S samus EKG Davie Devries MD complet ed
--- OUTSIDE RECORDS SUMMARY | 2024-09-21 09:50 | XMS_ITS | Clinical Summary ---
Author Organization [facility] Address [address] [place] [address] Care Team Providers Care Ext Js Developer Name Role Phone Unavailable Primary Care Provider Unavailabl e Source Comments [facility],non-owned Affiliates and Associated Physician Practices is amultiple site organization consisting of ambulatory clinics and hospital sitesin [place], [place], [place] and [place]. This disclosure is being madepursuant to the Care Everywhere program and may not contain all information available regarding this patient. Last updated 18.[facility] Allergies No known active allergies Medications * [...] Active vitamin D, ergocalciferol, (Drisdol) 1.25 MG (07630 UT) capsule Take 1 (one) capsule by [...] 021 Assessment & Plan (08/09/2020 11:10 AM MACHINE MILKER): - More eczematous in appearance today nummular eczema vs ACD, less likely PSO - Start Lidex ointment up to BID PRN to flared areas on body - Continue triamcinolone ointment to thinner areas on body PRN - Future considerations: patch testing if not improved on above regimen Fissure in skin of both feet 08/09/2020 Assessment & Plan (08/09/2020 11:10 AM MACHINE MILKER): - Counseled patient on difficult to treat [...] Comments Blood Pressure 98/60 07/31/2023 11:15 AM MACHINE MILKER Pulse 66 07/31/2023 11:15 AM MACHINE MILKER Temperature 36.7 C (98 F) 07/31/2023 11:15 AM MACHINE MILKER Respiratory Rate 16 07/31/2023 11:15 AM MACHINE MILKER Oxygen Saturation 97% 07/31/2023 11:15 AM MACHINE MILKER Inhaled Oxygen Concentration - - Weight 66.7 kg (147 lb) 07/31/2023 11:15 AM MACHINE MILKER Height 167.6 cm (5' 6 ) 07/31/2023 11:15 AM MACHINE MILKER Body Mass Index 23.73 07/31/2023 11:15 AM MACHINE MILKER Plan of Treatment Health Maintenance Due Date [...] Reactive Non Reactive 12/10/2016 7:41 PM CDT [facility] Blood BLOOD SPECIMEN / Unknown Venipuncture / Unknown 12/10/2016 11:49 AM CDT 12/10/2016 12:08 PM CDT Narrative [facility] - 12/10/2016 7:41 PM CDT No Laboratory evidence of HIV infection. Fanta Dover .NET ARCHITECT-DIRECTOR OF PUBLIC RELATIONS LAB - CHEMISTRY O RDERABLES Performing Organization Address City/State/[facility] Co de Phone Number [facility] [facility] [place] [address] from Last 3 Months or Most Recently Relevant to Health Maintenance
--- OUTSIDE RECORDS SUMMARY | 2024-09-21 09:50 | XMS_ITS | Patient Health Summary ---
Author Organization [facility] Address [address] [place] [address] Care Team Providers [facility] Paralegal Name Role Phone Unavailable Primary Care Provider Unavailabl e Note from [facility],non-owned Affiliates and Associated Physician Practices is amultiple site organization consisting of ambulatory clinics and hospital sitesin [place], [place], [place] and [place]. This disclosure is being madepursuant to the Care Everywhere program and may not contain all information available regarding this patient. Last updated 18.[facility] Allergies No known active allergies Medications * Be aware that medications may not be up to date on this document. Alwaysverify current medications with the patient. * triamcinolone acetonide (KENALOG) 0.1 % ointment(Started 11/07/2020) Apply to rash 2-3x daily. 30 days supply. 4 refills by 11/07/2021 * vitamin D, ergocalciferol, (Drisdol) 1.25 MG (74728 UT) capsule(Started 07/20/2023) Take 1 (one) capsule [...] Comments Blood Pressure 98/60 07/31/2023 11:15 AM SPECIAL EFFECTS PERSON Pulse 66 07/31/2023 11:15 AM SPECIAL EFFECTS PERSON Temperature 36.7 C (98 F) 07/31/2023 11:15 AM SPECIAL EFFECTS PERSON Respiratory Rate 16 07/31/2023 11:15 AM SPECIAL EFFECTS PERSON Oxygen Saturation 97% 07/31/2023 11:15 AM SPECIAL EFFECTS PERSON Inhaled Oxygen Concentration - - Weight 66.7 kg (147 lb) 07/31/2023 11:15 AM SPECIAL EFFECTS PERSON Height 167.6 cm (5' 6 ) 07/31/2023 11:15 AM SPECIAL EFFECTS PERSON Body Mass Index 23.73 07/31/2023 11:15 AM SPECIAL EFFECTS PERSON Procedures * NE PUNCH BX SKIN SINGLE LESION(Performed 06/26/2020) Performed for Rash and other nonspecific skin eruption * DERMATOPATHOLOGY(Performed 06/23/2020) Performed for Rash and other nonspecific skin eruption * SONOGRAM - COMPLETE(Performed 12/10/2016) * TYPE + SCREEN PANEL(Performed 12/10/2016) Performed for Supervision of normal first , antepartum ([facility]) * HEPATITIS B SURFACE ANTIGEN W RFLX CONFIRMATION(Performed 12/10/2016) Performed for Supervision of normal first , antepartum ([facility]) * HIV-1 HIV-2 ANTIBODY + HIV P24 AG PANEL(Performed 12/10/2016) Performed for Supervision of normal first , antepartum ([facility]) * RPR(Performed 12/10/2016) Performed for Supervision of normal first , antepartum ([facility]) * RUBELLA ANTIBODY IGG(Performed 12/10/2016) Performed for Supervision of normal first , antepartum ([facility]) * URINALYSIS REFLEX TO MICROSCOPIC NO CULTURE(Performed 12/10/2016) Performed for Supervision of normal first , antepartum ([facility]) * CHLAMYDIA + GC AMPLIFIED PROBE(Performed 12/10/2016) Performed for Supervision of normal first , antepartum ([facility]) * CULTURE URINE(Performed 12/10/2016) Performed for Supervision of normal first , antepartum ([facility]) * GLUCOSE PROTEIN KETONE URINE - POINT OF CAR(Performed 12/10/2016) Performed for Encounter for supervision of normal first in second trimester ([facility]) * TYPE + SCREEN PANEL(Performed 11/12/2016) Performed for Encounter for supervision of normal first in second trimester ([facility]) * CBC W AUTO DIFFERENTIAL(Performed 11/12/2016) Performed for Encounter for supervision of normal first in second trimester ([facility]) * HEMOGLOBIN ELECTROPHORESIS(Performed 11/12/2016) Performed for Encounter for supervision of normal first in second trimester ([facility]) * ALPHA FETOPROTEIN BLOOD MATERNAL QUAD PANEL(Performed 11/12/2016) Performed for Encounter for supervision of normal first in second trimester ([facility]) * GLUCOSE PROTEIN KETONE URINE - POINT OF CAR(Performed 11/12/2016) Performed for Encounter for supervision of normal first in second trimester ([facility]) * SONOGRAM - COMPLETE(Performed 11/12/2016) * HCG URINE QUALITATIVE - POCT (IP) [facility](Performed 08/29/2016) * PH FLUID - POCT (AMB) [facility](Performed 08/29/2016) * WET PREP - POINT OF CARE (AMB) [facility](Performed 08/29/2016) * FUNGUS HELEN - POINT OF CARE (AMB) [facility](Performed 08/29/2016) Results * NE PUNCH BX SKIN SINGLE LESION (06/26/2020 2:38 PM SPECIAL EFFECTS PERSON) Narrative Rachael Arreguin MD - 06/26/2020 2:38 PM SPECIAL EFFECTS PERSON Rachael Arreguin MD 06/26/2020 2:39 PM Punch [...] ICAL ORDERABLES * DERMATOPATHOLOGY (06/23/2020 12:00 AM SPECIAL EFFECTS PERSON) Case Report Dermatopathology Report Case: [id number] Authorizing Provider: Rachael Arreguin MD Collected: 06/23/2020 12:00 AM Ordering Location: [facility] Received: 06/26/2020 10:27 AM Dermatology Pathologist: Lyndon Valdes MD Specimen: Skin, right knee 0 4:36 PM [facility] [[email or web address] DERMATOPATHOLOGY LABORATORY Final Diagnosis Specimen A. 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 0 4:36 PM [facility] [[email or web address]] DERMATOPATHOLOGY LABORATORY Gross Description Specimen A: Received is one formalin filled container labeled with the patient's name and designated right knee. The specimen consists of a punch biopsy measuring 9q0h6ml, bisected. Jar 0. 0 4:36 PM [facility] [[email or web address]] DERMATOPATHOLOGY LABORATORY Microscopic Description Specimen A. SKIN, [...] Clinical correlation is recommended. 0 4:36 PM [facility] [[email or web address]] DERMATOPATHOLOGY LABORATORY Disclaimer An external and internal positive and negative controls are appropriate for the histochemical, immunohistochemical and immunofluorescence stain(s) in this case (if any), except where stated explicitly. The performance characteristics of the stain(s) cited in this report were developed and its performance characteristic determined by the Dermatopathology Laboratory at [facility], directed by Dr. Sweetie Valdes. These tests need not be, and therefore are not, approved by the [place] Food and Drug Administration. The tests are used for clinical purposes. Billing Codes Specimen Charges Stain Charges 21697 1 60256 1 0 4:36 PM SPECIAL EFFECTS PERSON DERMATOPATHOLOGY LABORATORY Embedded Images 0 4:36 PM [facility] [[email or web address]] DERMATOPATHOLOGY LABORATORY Pathology/Cytolog y TISSUE SPECIMEN FROM SKIN / Unknown 06/23/2020 06/26/2020 10:27 AM SPECIAL EFFECTS PERSON Rachael Arreguin MD LAB - PATHOLOGY/CYTO LOGY ORDERABLES Performing Organization Address City/State/[facility] Co de Phone Number DERMATOPATHOLOGY LABORATORY [facility] - Department of Dermatology [facility] [address] [place] [address], [address] Floor [address] [phone] * SONOGRAM - COMPLETE (12/10/2016 1:09 PM CDT) Only the most recent of2 resultswithin the time period is included. Anatomical Region Laterality Modality Other 12/10/2016 1:09 PM CDT Narrative 12/10/2016 1:59 PM CDT [facility] PHONE: FAX: Ritu. Name: CHERIE RODRIGUEZ Ritu. No: [id number] Study Date: 12/10/2016 1:09pm , Age: 13 1990, 26 Pregnancies: 1 Height: 67 in Weight: 135 lb LMP: Unknown GA by 1st: 20w2d GA by US: 20w3d GA Selected: 20w2d (From First U) SANTIAGO: 04/27/2017 Referring MD: MD Bijan, [facility] Supplies Packer: Roselia Fatima RDMS CPT4: 94386 BMI: 21.14 Hist/Ind: Complete Anatomy Growth MEASUREMENTS & AGE GROWTH EVALUATION Measurement GA Range Srce %for GA Ratios ----- ---- ------- BPD 4.9 cm 20w5d (99t9x-94a1f) Hadl BPD 60% FL/BPD 0.70 HC 17.4 cm 19w6d (68z2e-51p4b) Hadl HC 39% FL/AC 0.22 AC 15.2 cm 20w3d (54y2f-24x3z) Hadl AC 53% HC/AC 1.14 (1.06 - 1.24) FL 3.4 cm 20w4d (42b7a-99m6j) Hadl FL 58% CI 0.81 (0.70 - 0.86) GA for sonogram 20w3d (45o9s-88q7e) Weight Estimate: based on (BPD,HC,AC,FL) Avg Weight: [...] [facility] Co de Phone Number [facility] [address] [place] [address] * RPR (12/10/2016 11:49 AM CDT) RPR Non Reactive Non Reactive 12/11/2016 10:44 AM CDT [facility] Blood BLOOD SPECIMEN / Unknown Venipuncture / Unknown 12/10/2016 11:49 AM CDT 12/10/2016 12:08 PM CDT Fanta Dover APRN-SAFETY AND HEALTH MANAGER LAB - CHEMISTRY O RDERABLES Performing Organization Address City/[facility]/ZIP Co de Phone Number [facility] [address] [place] [address] * RUBELLA ANTIBODY IGG (12/10/2016 11:49 AM CDT) [facility] Rubella Antibody IgG Positive - Immune 12/10/2016 12:50 PM CDT [facility] Blood BLOOD SPECIMEN / Unknown Venipuncture / Unknown 12/10/2016 11:49 AM CDT 12/10/2016 12:08 PM CDT Fanta Dover [facility] LAB - SEROLOGY OR DERABLES Performing Organization Address [facility] Co de Phone Number [facility] [address] [place] [address] * TYPE + SCREEN PANEL (12/10/2016 11:49 AM CDT) Only the most recent of2 resultswithin the time period is included. [facility] ABO O 12/10/2016 1:11 PM CDT [facility] Rh Type Positive 12/10/2016 1:11 PM CDT [facility] Comment:History check perfor med. No retype required. Antibody Screen Negative 12/10/2016 1:11 PM CDT [facility] Blood Bank BLOOD SPECIMEN / Unknown Venipuncture / Unknown 12/10/2016 11:49 AM CDT 12/10/2016 12:08 PM CDT Fanta Dover [facility] LAB - BLOOD BANK ORDERABLES Performing Organization Address [facility] Co de Phone Number [facility] [address] [place] [address] * HEPATITIS B SURFACE ANTIGEN (12/10/2016 11:49 AM CDT) [facility] HBsAg Non Reactive Non Reactive 12/10/2016 12:52 PM CDT [facility] Blood BLOOD SPECIMEN / Unknown Venipuncture / Unknown 12/10/2016 11:49 AM CDT 12/10/2016 12:08 PM CDT Fanta Haney Stanis[facility] - CHEMISTRY O RDERABLES [facility] [address] [place] [phone] * URINALYSIS ROUTINE AUTO (12/10/2016 11:48 AM CDT) Color UA Yellow Straw, Yellow, Dark Yellow 12/10/2016 12:49 PM CDT [facility] Clarity UA Clear 12/10/2016 12:49 PM CDT [facility] Specific Terril UA 1.017 1.005 - 1.030 12/10/2016 12:49 PM CDT [facility] pH UA 6.0 5.0 - 8.0 pH 12/10/2016 12:49 PM CDT [facility] Protein UA Negative Negative 12/10/2016 12:49 PM CDT [facility] Blood UA Negative Negative 12/10/2016 12:49 PM CDT [facility] Leukocyte UA Negative Negative 12/10/2016 12:49 PM CDT [facility] Nitrite UA Negative Negative 12/10/2016 12:49 PM CDT [facility] Glucose UA Negative Negative 12/10/2016 12:49 PM CDT [facility] Ketone UA Negative Negative 12/10/2016 12:49 PM CDT [facility] Bilirubin UA Negative Negative 12/10/2016 12:49 PM CDT [facility] Urobilinogen UA 0.2 0.1 - 1.0 EU/dL 12/10/2016 12:49 PM CDT [facility] Urine URINE SPECIMEN OBTAINED BY CLEAN CATCH PROCEDURE / Unknown Collection / Unknown 12/10/2016 11:48 AM CDT 12/10/2016 12:15 PM CDT Fanta M Stanislaw [facility] - URINALYSIS ORDERABLES Performing Organization Address [facility]/ZIP Co de Phone Number [facility] [address] [place] [address] [phone] * CHLAMYDIA + GC AMPLIFIED PROBE (12/10/2016 11:48 AM CDT) Chlamydia Amplified Probe Negative Negative 12/11/2016 9:29 AM CDT [facility] GC Amplified Probe Negative Negative 12/11/2016 9:29 AM CDT [facility] Microbiology URINE / Unknown Collection / Unknown 12/10/2016 11:48 AM CDT 12/10/2016 12:15 PM CDT Narrative [facility] - 12/11/2016 9:29 AM CDT This test was developed and its performance characteristics determined by the [facility] Microbiology Laboratory, [facility]. Female urine specimens tested by the [facility] [place] have not been cleared or approved by the U.S. Food and Drug Administration (FDA). The laboratory is regulated under the Clinical Laboratory Improvement Amendments (CLIA) as qualified to perform high-complexity testing. This test is used for clinical purposes. It should not be regarded as investigational or for research. Results based on detection/no detection of ribosomal RNA by amplified method. Fanta Dover APRN-SAFETY AND HEALTH MANAGER LAB - MICROBIOLOG Y ORDERABLES Performing Organization Address City/[facility]/ZIP Co de Phone Number [facility] [address] [place] [address], [facility] [phone] * URINE CULTURE (12/10/2016 11:48 AM CDT) Culture <10,000 CFU/mL urogenital tye CHELSI 12/12/2016 5:29 AM CDT [facility] Urine URINE SPECIMEN OBTAINED BY CLEAN CATCH PROCEDURE / Unknown Collection / Unknown 12/10/2016 11:48 AM CDT 12/10/2016 12:15 PM CDT Fanta Dover ASSISTANT MANAGER RETAIL-SAFETY AND HEALTH MANAGER LAB - MICROBIOLOG Y ORDERABLES Performing Organization Address City/[facility]/ZIP Co de Phone Number [facility] [address] [place] [address], [facility] [phone] * GLUCOSE PROTEIN KETONE URINE - POINT [...] OF CARE ORDERABLES [facility] [address] [phone] * ALPHA FETOPROTEIN BLOOD MATERNAL QUAD PANEL [...] 1:06 PM CDT [facility] ([facility]) hCG Value 87062 mIU/mL 11/17/2016 1:06 PM CDT [facility] ([facility]) hCG Mom 0.59 11/17/2016 1:06 PM CDT [facility] ([facility]) Estriol Value 0.88 ng/mL 11/17/2016 1:06 PM CDT [facility] ([facility]) Estriol MoM 0.97 11/17/2016 1:06 PM CDT [facility] ([facility]) SUKHJINDER Value 149.61 pg/mL 11/17/2016 1:06 PM CDT [facility] ([facility]) Sukhjinder MoM Value 0.80 11/17/2016 1:06 PM CDT [facility] ([facility]) [place] 1 [place] [address] 11/17/2016 1:06 PM CDT [facility] ([facility]) DSR (2nd Trimester) 1 [place] [address] 11/17/2016 1:06 PM CDT [facility] ([facility]) DSR (By Age) 1 IN 1039 017 1:06 PM CDT [facility] ([facility]) T18 Risk Not increased 11/17/2016 1:06 PM CDT [facility] ([facility]) T18 (by Age) 1:4050 11/17/2016 1:06 PM CDT [facility] ([facility]) Interpretation Comment 11/17/2016 1:06 PM CDT [facility] ([facility]) Comment: Interpretation: Screen Negative This result [...] identifies 60% of Trisomy 18 pregnancies. The [employer] [place] [employer] recommends amniocentesis be offered to women age 35 and older. Recalculations are not recommended when gestational dating by LMP and ultrasound are within 10 days. Comments Comment 11/17/2016 1:06 PM CDT [facility] ([facility]) Comment: Nicolette Barraza, Ph.D., [facility] Principal Genetics Chemical Laboratory Assistant References: Available Upon Request. Multiples Of Median Cutoffs Abbreviation Definitions For AFP Elevations IDD- Insulin Dep Diabetes Newell 2.5 Black 2.8 OSBR- Open Spina Bifida IDD 2.0 Twins 4.5 Risk DSR Cutoff 1:270 DSR- Down Syndrome Risk T18 Cutoff 1:100 T18- Trisomy 18 Down Syndrome and Trisomy 18 screening are considered Investigational For further inquiries contact [employer] at [phone]. PDF . 11/17/2016 1:06 PM CDT [facility] ([facility]) Blood BLOOD SPECIMEN / Unknown Venipuncture / Unknown 11/12/2016 1:00 PM CDT 11/12/2016 1:20 PM CDT Narrative [facility] ([facility]) - 11/17/2016 1:06 PM CDT Performed at: [facility] [address] [facility], [place], [place] [id number] Marketing Operations Coordinator: Jeanine Weber MD, Phone: [phone] Razia Tsang MD LAB - CHEMISTRY BALDEV TALBERT Performing Organization Address City/[facility]/ZIP Co de Phone Number [facility] ([facility]) [address] [place] [address] * HEMOGLOBIN ELECTROPHORESIS (11/12/2016 1:00 PM CDT) Pathologist [facility] Hemoglobin A1 97.7 97.1 - 99.1 % 11/13/2016 1:43 PM CDT [facility] Hemoglobin F 0.0 0.0 - 2.0 % 11/13/2016 1:43 PM CDT [facility] Hemoglobin S 0.0 <=0.0 % 11/13/2016 1:43 PM CDT [facility] Hemoglobin C 0.0 <=0.0 % 11/13/2016 1:43 PM CDT [facility] Hemoglobin A2 2.3 0.9 - 2.9 % 11/13/2016 1:43 PM CDT [facility] Hemoglobin E 0.0 % 11/13/2016 1:43 PM CDT [facility] Interpretation Normal Interpretation 11/13/2016 1:43 PM CDT [facility] Blood BLOOD SPECIMEN / Unknown Venipuncture / Unknown 11/12/2016 1:00 PM CDT 11/12/2016 1:20 PM CDT Razia Tsang MD LAB - CHEMISTRY BALDEV TALBERT [facility] [address] [place] [address] * (ABNORMAL) CBC W AUTO DIFFERENTIAL (11/12/2016 1:00 PM CDT) [facility] Signature WBC 10.6 4.4 - 10.7 x10E9/L 11/12/2016 1:30 PM CDT [facility] WBC Corrected x10E9/L 11/12/2016 1:30 PM CDT [facility] RBC 4.42 3.80 - 5.20 x10E12/L 11/12/2016 1:30 PM CDT [facility] Hemoglobin 12.2 12.0 - 15.6 gm/dL 11/12/2016 1:30 PM CDT [facility] Hematocrit 36.7 35.9 - 45.5 % 11/12/2016 1:30 PM CDT [facility] MCV 83.0 80.7 - 98.3 fl 11/12/2016 1:30 PM CDT [facility] MCH 27.6 26.7 - 34.0 pg 11/12/2016 1:30 PM CDT [facility] MCHC 33.2 30.8 - 35.9 gm/dL 11/12/2016 1:30 PM CDT [facility] Platelet Count 233 153 - 416 x10E9/L 11/12/2016 1:30 PM CDT [facility] RDW-CV 13.5 12.1 - 14.9 % 11/12/2016 1:30 PM CDT [facility] MPV 10.0 9.4 - 12.9 fl 11/12/2016 1:30 PM CDT [facility] Neutrophils % 73.7(H) 44.0 - 73.0 % 11/12/2016 1:30 PM CDT [facility] Lymphocytes % 16.1(L) 20.0 - 43.0 % 11/12/2016 1:30 PM CDT [facility] Monocytes % 5.6 5.0 - 13.0 % 11/12/2016 1:30 PM CDT [facility] Eosinophils % 3.5 0.0 - 6.0 % 11/12/2016 1:30 PM CDT [facility] Basophils % 0.6 0.0 - 2.0 % 11/12/2016 1:30 PM CDT [facility] Immature Granulocytes 0.5 0 - 1 % 11/12/2016 1:30 PM CDT [facility] Neutrophil Absolute 7.83(H) 2.01 - 7.14 x10E9/L 11/12/2016 1:30 PM CDT [facility] Lymphocytes Absolute 1.71 1.07 - 3.94 x10E9/L 11/12/2016 1:30 PM CDT [facility] Monocytes Absolute 0.60 0.26 - 1.07 x10E9/L 11/12/2016 1:30 PM CDT [facility] Eosinophils Absolute 0.37 0 - 0.47 x10E9/L 11/12/2016 1:30 PM CDT [facility] Basophils Absolute 0.06 0 - 0.08 x10E9/L 11/12/2016 1:30 PM CDT [facility] Immature Granulocytes Absolute 0.05 0.00 - 0.06 x10E9/L 11/12/2016 1:30 PM CDT [facility] nRBC Auto 0 /100 WBC 11/12/2016 1:30 PM CDT [facility] Blood BLOOD SPECIMEN / Unknown Venipuncture / Unknown 11/12/2016 1:00 PM CDT 11/12/2016 1:20 PM CDT Razia Tsang MD LAB - HEMATOLOGY ORD ERABLES [facility] [address] [place] [address] * PH FLUID - POCT (AMB) [facility] (08/29/2016) pH Vaginal 4.5 [facility] Vaginal swab (specimen) 08/29/2016 Shruthi Chand APRN-MAYLIN LAB - POINT OF CARE ORDERABLES [facility] * WET PREP - POINT OF CARE (AMB) [facility] (08/29/2016) pH Wet Prep 4.[address] [facility] Yeast Wet Prep n [facility] Trichomonas Wet Prep n [facility] Bacteria Wet Prep n [facility] Whiff Test n [facility] 08/29/2016 Shruthi Chand APRN-SAFETY AND HEALTH MANAGER LAB - POINT OF CARE ORDERABLES [facility] * FUNGUS HELEN - POINT OF CARE (AMB) [facility] (08/29/2016) HELEN Prep n [facility] Fluid specimen (specimen) 08/29/2016 Shruthi Chand APRN-SAFETY AND HEALTH MANAGER LAB - POINT OF CARE ORDERABLES Performing Organization Address [facility]/ZIP Co de Phone Number [facility] * HCG URINE QUALITATIVE - POCT (IP) [facility] (08/29/2016) Test Urine Positive [facility] Urine specimen (specimen) 08/29/2016 Shruthi Chand APRN-SAFETY AND HEALTH MANAGER LAB - POINT OF CARE ORDERABLES Performing Organization Address [facility]/State/ZIP Co de Phone Number [facility]
--- OUTSIDE RECORDS SUMMARY | 2024-09-21 09:50 | XMS_ITS | Referral Summary ---
Author Organization [facility] Address [address] [place] [address] Care Team Providers Care Pants Maker Name Role Phone Porter Rodriguez MD Primary Care Provider [phone] Allergies No known active allergies Medications ferrous [...] on file Legal Sex Female 3:04 AM PARAFFINER Gender Identity Not on file Sexual Orientation Not on file Last Filed Vital Signs Vital Sign Reading Time Taken Comments Blood Pressure 120/74 09/05/2023 12:00 PM PARAFFINER Pulse 67 09/05/2023 12:00 PM PARAFFINER Temperature 36.6 C (97.9 F) 09/05/2023 10:07 AM PARAFFINER Respiratory Rate 20 09/05/2023 12:00 PM PARAFFINER Oxygen Saturation 98% 09/05/2023 12:00 PM PARAFFINER Inhaled Oxygen Concentration - - Weight 67 kg (147 lb 11.3 oz) 09/05/2023 10:07 A M PARAFFINER Height 167.6 cm (5' 6 ) 07/01/2023 1:29 PM PARAFFINER Body Mass Index 23.84 07/01/2023 1:29 PM PARAFFINER Plan of Treatment Not on file Procedures [...] RNA. Detection and Quantitation by Real-Time Reverse Truck Switcher-PCR.Current Interpretive data was last revised on 2017. Blood specimen (specimen) 01/17/2017 10:50 AM CDT 01/17/2017 11:46 AM CDT us Annabel Frederick [facility] LAB MICROBIOLOGY - GEN ERAL ORDERABLES Edited Result - Final [facility] Department [place] [address] from Last 3 Months or Most Recently Relevant to Health Maintenance Insurance [facility] CHOICE PLUS [employer] [facility] Care Teams Pants Maker Relationship Specialty Start Date End Date Porter Rodriguez MD [address] [place] [id number] PCP - General Emergency Medicine 09/05/23
--- OUTSIDE RECORDS SUMMARY | 2024-09-21 09:50 | XMS_ITS | Clinical Summary ---
Author Organization [facility] Address [address] [place] [id number] Phone Care Team Providers Care Supervisor Personnel Clerks Name Role Phone Porter Rodriguez MD Primary Care Provider Allergies No known active allergies Medications Medication Sig Dispensed Refills Start Date End Date Status ergocalciferol (VITAMIN D-2) 1.25 MG (66950 UT) capsule Take 50,000 Units by mouth [...] 2011 Influenza Vaccine (#1) 2024 Care Teams Supervisor Personnel Clerks Relationship Specialty Start Date End Date Porter Rodriguez MD PCP - General 10/15/23
--- OUTSIDE RECORDS SUMMARY | 2024-09-21 09:50 | XMS_ITS | Referral Summary ---
Author Organization [facility] Address [address] [facility] [place] [address] Care Team Providers Care Shotgun Shell Loading Machine Operator Name Role Phone Unavailable Primary Care Provider Unavailabl e Source Comments [facility],non-owned Affiliates and Associated Physician Practices is amultiple site organization consisting of ambulatory clinics and hospital sitesin [place], [place], [place] and [place]. This disclosure is being madepursuant to the Care Everywhere program and may not contain all information available regarding this patient. Last updated 18.[facility] Allergies No known active allergies Medications * [...] Active vitamin D, ergocalciferol, (Drisdol) 1.25 MG (26546 UT) capsule Take 1 (one) capsule by [...] 021 Assessment & Plan (08/09/2020 11:10 AM FISH SKINNING MACHINE FEEDER): - More eczematous in appearance today nummular eczema vs ACD, less likely PSO - Start Lidex ointment up to BID PRN to flared areas on body - Continue triamcinolone ointment to thinner areas on body PRN - Future considerations: patch testing if not improved on above regimen Fissure in skin of both feet 08/09/2020 Assessment & Plan (08/09/2020 11:10 AM FISH SKINNING MACHINE FEEDER): - Counseled patient on difficult to treat [...] Comments Blood Pressure 98/60 07/31/2023 11:15 AM FISH SKINNING MACHINE FEEDER Pulse 66 07/31/2023 11:15 AM FISH SKINNING MACHINE FEEDER Temperature 36.7 C (98 F) 07/31/2023 11:15 AM FISH SKINNING MACHINE FEEDER Respiratory Rate 16 07/31/2023 11:15 AM FISH SKINNING MACHINE FEEDER Oxygen Saturation 97% 07/31/2023 11:15 AM FISH SKINNING MACHINE FEEDER Inhaled Oxygen Concentration - - Weight 66.7 kg (147 lb) 07/31/2023 11:15 AM FISH SKINNING MACHINE FEEDER Height 167.6 cm (5' 6 ) 07/31/2023 11:15 AM FISH SKINNING MACHINE FEEDER Body Mass Index 23.73 07/31/2023 11:15 AM FISH SKINNING MACHINE FEEDER Plan of Treatment Not on file Procedures [...] Reactive Non Reactive 12/10/2016 7:41 PM CDT [facility] Blood BLOOD SPECIMEN / Unknown Venipuncture / Unknown 12/10/2016 11:49 AM CDT 12/10/2016 12:08 PM CDT Narrative [facility] - 12/10/2016 7:41 PM CDT No Laboratory evidence of HIV infection. Fanta Dover RADIOLOGIC TECHNICIAN-MOTOR VEHICLE EXAMINER LAB - CHEMISTRY O RDERABLES Performing Organization Address City/State/[facility] Co de Phone Number [facility] [address] [place] [address] from Last 3 Months or Most Recently Relevant to Health Maintenance
--- OUTSIDE RECORDS SUMMARY | 2024-09-21 09:50 | XMS_ITS | Encounter Summary ---
Author Organization [facility] Address [address] [place] [address] Care Team Providers Care Travel Professional Name Role Phone None, Provider MD Primary Care Provider Unavaila ble None, Provider Primary Care Provider Unavaila ble Encounter Details Date Type Department Care Team (Late st Contact Info) Description 06/05/2021 Hospital Follow-up Call [facility] [place] [address] Yasmine Gallegos, RN Social History Tobacco Use [...] COVID-19? No / Unsure 06/07/2021 7:55 PM DESIGN ARCHITECT documented as of this encounter Functional Status [...] on filedocumented in this encounter Care Teams Travel Professional Relationship Specialty Start Date End Date None, ProviderMD PCP - General 05/04/21 06/06/21 None, MD Zach PCP - General 06/07/21 documented as of this encounter
--- OUTSIDE RECORDS SUMMARY | 2024-09-21 09:50 | XMS_ITS | Clinical Summary ---
Author Organization [facility] Address [address] [place] [address] Care Team Providers Care Business Asst Name Role Phone None, Provider MD Primary Care Provider Unavaila ble Allergies No known active allergies Medications Acetaminophen 500 MG Chew Tab Chew 1 tablet by mouth every 4 (four) hours as needed (pain). Active Active Problems Problem Noted Date Diagnosed Date ([facility]) 05/06/2021 Normal spontaneous vaginal delivery ([facility]) Social History Tobacco Use Types Packs/Day [...] Comments Blood Pressure 105/80 06/07/2021 10:26 PM CONCRETE PLACEMENT EQUIPMENT OPERATOR Pulse 79 06/07/2021 10:26 PM CONCRETE PLACEMENT EQUIPMENT OPERATOR Temperature 36.6 C (97.8 F) 06/07/2021 8:25 PM CONCRETE PLACEMENT EQUIPMENT OPERATOR Respiratory Rate 16 06/07/2021 8:25 PM CONCRETE PLACEMENT EQUIPMENT OPERATOR Oxygen Saturation 98% 06/07/2021 8:25 PM CONCRETE PLACEMENT EQUIPMENT OPERATOR Inhaled Oxygen Concentration - - Weight 66.2 [...] patient's age to complete this topic Insurance [place] Advance Directives * Full Code (Latest Code Status on File) Date Activated Date Inactivated Comments 05/06/2021 4:39 PM 05/08/2021 6:26 PM Care Teams Business Asst Relationship Specialty Start Date End Date None, Provider, PCP - General 06/07/21
[2024-09-21] MEDS: METOCLOPRAMIDE HCL INJ 10 MG/2 ML VIAL IV PUSH (09:54)
[2024-09-21] MEDS: SODIUM CHLORIDE 0.9% IV 1,000 ML 999 ML IV CONT (09:54)
[2024-09-21] MEDS: diphenhydrAMINE HCl INJ 50 MG/ML VIAL 25 MG IV PUSH (09:54)
[2024-09-21 10:04] LABS: BEDSIDEPREGUCG Positive (Negative)
[2024-09-21 10:13] LABS: Influenza A QL RT-PCR Negative (Negative); Influenza B QL RT-PCR Negative (Negative); SARS-CoV-2 RNA PCR Negative (Negative)
[2024-09-21 11:01] VITALS: BP 101/69; PULSE 77; RESP 16; O2SAT 98
[2024-09-21 12:24] VITALS: BP 101/55; PULSE 69; RESP 21; TEMP 36.2; O2SAT 100
== END 2024-09-21 12:26 | disposition home or self-care (01) ==
PROVIDERS: Emergency Medicine; Emergency Provider Physician Assistant; PCP Emergency Medicine
DX: O23.41 Unspecified infection of urinary tract in pregnancy, first trimester (principal); N39.0 Urinary tract infection, site not specified; Z3A.01 Less than 8 weeks gestation of pregnancy; O21.0 Mild hyperemesis gravidarum; O36.8910 Maternal care for other specified fetal problems, first trimester, not applicable or unspecified; Z20.822 Contact with and (suspected) exposure to COVID-19
CPT/HCPCS: 36415; 76801; 76817; 80053; 81001; 81025; 83690; 84702; 85025; 87636; 96365; 96375; 99284; J0696; J1200; J2765; J7030

== ENCOUNTER 2024-09-27 13:13 | Emergency (ER) | payer OTHER, SELFPAY ==
[2024-09-27 13:19] VITALS: BP 112/74; PULSE 78; RESP 16; TEMP 36.8; O2SAT 100
--- OUTSIDE RECORDS SUMMARY | 2024-09-27 15:11 | XMS_ITS | Clinical Summary ---
Author Organization [facility] Address [address] [facility] [place] [address] Care Team Providers Care Sole Leveler Name Role Phone Unavailable Primary Care Provider Unavailabl e Source Comments [facility],non-owned Affiliates and Associated Physician Practices is amultiple site organization consisting of ambulatory clinics and hospital sitesin [place], [place], [place] and [place]. This disclosure is being madepursuant to the Care Everywhere program and may not contain all information available regarding this patient. Last updated 18.[facility] Allergies No known active allergies Medications * [...] Active vitamin D, ergocalciferol, (Drisdol) 1.25 MG (88162 UT) capsule Take 1 (one) capsule by [...] 021 Assessment & Plan (08/09/2020 11:10 AM TIPPLE WORKER): - More eczematous in appearance today nummular eczema vs ACD, less likely PSO - Start Lidex ointment up to BID PRN to flared areas on body - Continue triamcinolone ointment to thinner areas on body PRN - Future considerations: patch testing if not improved on above regimen Fissure in skin of both feet 08/09/2020 Assessment & Plan (08/09/2020 11:10 AM TIPPLE WORKER): - Counseled patient on difficult to treat [...] Comments Blood Pressure 98/60 07/31/2023 11:15 AM TIPPLE WORKER Pulse 66 07/31/2023 11:15 AM TIPPLE WORKER Temperature 36.7 C (98 F) 07/31/2023 11:15 AM TIPPLE WORKER Respiratory Rate 16 07/31/2023 11:15 AM TIPPLE WORKER Oxygen Saturation 97% 07/31/2023 11:15 AM TIPPLE WORKER Inhaled Oxygen Concentration - - Weight 66.7 kg (147 lb) 07/31/2023 11:15 AM TIPPLE WORKER Height 167.6 cm (5' 6 ) 07/31/2023 11:15 AM TIPPLE WORKER Body Mass Index 23.73 07/31/2023 11:15 AM TIPPLE WORKER Plan of Treatment Health Maintenance Due Date [...] PM CDT [facility] Blood BLOOD SPECIMEN / Unknown Venipuncture / Unknown 12/10/2016 11:49 AM CDT 12/10/2016 12:08 PM CDT Narrative [facility] - 12/10/2016 7:41 PM CDT No Laboratory evidence of HIV infection. Fnata Dover SECURITY CHECKER-OPERATIONS MANAGER ASSISTANT LAB - CHEMISTRY O RDERABLES Performing Organization Address City/State/[facility] Co de Phone Number [facility] [facility] [place] [address] from Last 3 Months or Most Recently Relevant to Health Maintenance
--- OUTSIDE RECORDS SUMMARY | 2024-09-27 15:11 | XMS_ITS | Referral Summary ---
Author Organization [facility] Address [address] [place] [address] Care Team Providers Care Marine Pilot Name Role Phone Porter Rodriguez MD Primary Care Provider [phone] Allergies No known active allergies Medications ferrous [...] on file Legal Sex Female 3:04 AM EXTENSION SPECIALIST Gender Identity Not on file Sexual Orientation Not on file Last Filed Vital Signs Vital Sign Reading Time Taken Comments Blood Pressure 120/74 09/05/2023 12:00 PM EXTENSION SPECIALIST Pulse 67 09/05/2023 12:00 PM EXTENSION SPECIALIST Temperature 36.6 C (97.9 F) 09/05/2023 10:07 AM EXTENSION SPECIALIST Respiratory Rate 20 09/05/2023 12:00 PM EXTENSION SPECIALIST Oxygen Saturation 98% 09/05/2023 12:00 PM EXTENSION SPECIALIST Inhaled Oxygen Concentration - - Weight 67 kg (147 lb 11.3 oz) 09/05/2023 10:07 A M EXTENSION SPECIALIST Height 167.6 cm (5' 6 ) 07/01/2023 1:29 PM EXTENSION SPECIALIST Body Mass Index 23.84 07/01/2023 1:29 PM EXTENSION SPECIALIST Plan of Treatment Not on file Procedures [...] RNA. Detection and Quantitation by Real-Time Reverse Library Page-PCR.Current Interpretive data was last revised on 2017. Blood specimen (specimen) 01/17/2017 10:50 AM CDT 01/17/2017 11:46 AM CDT us Annabel Frederick LACING CUTTER LAB MICROBIOLOGY - GEN ERAL ORDERABLES Edited Result - Final [facility] [address] [facility] Department [place] [address] from Last 3 Months or Most Recently Relevant to Health Maintenance Insurance [facility] Care Teams Marine Pilot Relationship Specialty Start Date End Date Porter Rodriguez MD [address] [place] [id number] PCP - General Emergency Medicine 09/05/23
--- OUTSIDE RECORDS SUMMARY | 2024-09-27 15:11 | XMS_ITS | Clinical Summary ---
Author Organization [facility] Address [address] [place] [address] Care Team Providers Care Blending Supervisor Name Role Phone None, Provider MD Primary Care Provider Unavaila ble Allergies No known active allergies Medications Acetaminophen 500 MG Chew Tab Chew 1 tablet by mouth every 4 (four) hours as needed (pain). Active Active Problems Problem Noted Date Diagnosed Date ([facility]) 05/06/2021 Normal spontaneous vaginal delivery ([facility]) Social History Tobacco Use Types Packs/Day [...] Comments Blood Pressure 105/80 06/07/2021 10:26 PM NURSE FIRST AID Pulse 79 06/07/2021 10:26 PM NURSE FIRST AID Temperature 36.6 C (97.8 F) 06/07/2021 8:25 PM NURSE FIRST AID Respiratory Rate 16 06/07/2021 8:25 PM NURSE FIRST AID Oxygen Saturation 98% 06/07/2021 8:25 PM NURSE FIRST AID Inhaled Oxygen Concentration - - Weight 66.2 [...] patient's age to complete this topic Insurance [employer] Advance Directives * Full Code (Latest Code Status on File) Date Activated Date Inactivated Comments 05/06/2021 4:39 PM 05/08/2021 6:26 PM Care Teams Blending Supervisor Relationship Specialty Start Date End Date None, Provider, PCP - General 06/07/21
--- OUTSIDE RECORDS SUMMARY | 2024-09-27 15:11 | XMS_ITS | Encounter Summary ---
Author Organization [facility] Address [address] [place] [address] Care Team Providers Care Founding Partner Name Role Phone None, Provider MD Primary Care Provider Unavaila ble None, Provider Primary Care Provider Unavaila ble Encounter Details Date Type Department Care Team (Late st Contact Info) Description 06/05/2021 Hospital Follow-up Call [facility] [place] [address] Yasmine Gallegos, RN Social History Tobacco Use [...] COVID-19? No / Unsure 06/07/2021 7:55 PM SKIVER HAND documented as of this encounter Functional Status [...] on filedocumented in this encounter Care Teams Founding Partner Relationship Specialty Start Date End Date None, ProviderMD PCP - General 05/04/21 06/06/21 None, MD Zach PCP - General 06/07/21 documented as of this encounter
--- OUTSIDE RECORDS SUMMARY | 2024-09-27 15:11 | XMS_ITS | Referral Summary ---
Author Organization [facility] Address [address] [facility] [place] [address] Care Team Providers Care Community Cultural Development Officer Name Role Phone Unavailable Primary Care Provider Unavailabl e Source Comments [facility],non-owned Affiliates and Associated Physician Practices is amultiple site organization consisting of ambulatory clinics and hospital sitesin [place], [place], [place] and [place]. This disclosure is being madepursuant to the Care Everywhere program and may not contain all information available regarding this patient. Last updated 18.[facility] Allergies No known active allergies Medications * [...] Active vitamin D, ergocalciferol, (Drisdol) 1.25 MG (26423 UT) capsule Take 1 (one) capsule by [...] 021 Assessment & Plan (08/09/2020 11:10 AM HUMAN RESOURCES HR REPRESENTATIVE): - More eczematous in appearance today nummular eczema vs ACD, less likely PSO - Start Lidex ointment up to BID PRN to flared areas on body - Continue triamcinolone ointment to thinner areas on body PRN - Future considerations: patch testing if not improved on above regimen Fissure in skin of both feet 08/09/2020 Assessment & Plan (08/09/2020 11:10 AM HUMAN RESOURCES HR REPRESENTATIVE): - Counseled patient on difficult to treat [...] Comments Blood Pressure 98/60 07/31/2023 11:15 AM HUMAN RESOURCES HR REPRESENTATIVE Pulse 66 07/31/2023 11:15 AM HUMAN RESOURCES HR REPRESENTATIVE Temperature 36.7 C (98 F) 07/31/2023 11:15 AM HUMAN RESOURCES HR REPRESENTATIVE Respiratory Rate 16 07/31/2023 11:15 AM HUMAN RESOURCES HR REPRESENTATIVE Oxygen Saturation 97% 07/31/2023 11:15 AM HUMAN RESOURCES HR REPRESENTATIVE Inhaled Oxygen Concentration - - Weight 66.7 kg (147 lb) 07/31/2023 11:15 AM HUMAN RESOURCES HR REPRESENTATIVE Height 167.6 cm (5' 6 ) 07/31/2023 11:15 AM HUMAN RESOURCES HR REPRESENTATIVE Body Mass Index 23.73 07/31/2023 11:15 AM HUMAN RESOURCES HR REPRESENTATIVE Plan of Treatment Not on file Procedures [...] Reactive Non Reactive 12/10/2016 7:41 PM CDT [facility] Blood BLOOD SPECIMEN / Unknown Venipuncture / Unknown 12/10/2016 11:49 AM CDT 12/10/2016 12:08 PM CDT Narrative [facility] - 12/10/2016 7:41 PM CDT No Laboratory evidence of HIV infection. Fanta Dover FILLING MACHINE OPERATOR-CITY MAINTENANCE MANAGER LAB - CHEMISTRY O RDERABLES Performing Organization Address City/State/[facility] Co de Phone Number [facility] [address] [place] [address] from Last 3 Months or Most Recently Relevant to Health Maintenance
--- OUTSIDE RECORDS SUMMARY | 2024-09-27 15:11 | XMS_ITS | Clinical Summary ---
Author Organization [facility] Address [address] [place] [address] Phone Care Team Providers Care Experimental Plastics Fabricator Name Role Phone Porter Rodriguez MD Primary Care Provider [phone] Allergies No known active allergies Medications Medication Sig Dispensed Refills Start Date End Date Status ergocalciferol (VITAMIN D-2) 1.25 MG (83257 UT) capsule Take 50,000 Units by mouth [...] 2011 Influenza Vaccine (#1) 2024 Care Teams Experimental Plastics Fabricator Relationship Specialty Start Date End Date Porter Rodriguez MD PCP - General 10/15/23
--- OUTSIDE RECORDS SUMMARY | 2024-09-27 15:11 | XMS_ITS | Data Portability ---
Author Organization [facility] [employer] , [facility] Address [address] [place] [address] Assessment Encounter Date Assessment Date Assessment LastModified [...] decided. -- Pt would like D&C at [facility]. Message sent to schedule. bnotzke Not available 11/13/2022 11:48:03 Plan of Treatment Reminders Order Date Submit Date Provider Last Modified By Organization Details Last Modified Time Details Appointments None recorded. Lab culture, urine 2024 025 [facility], [address] [facility], [place], [address], 21:59:41 test, urine 2024 025 shannen [facility], [address] [place], [address], 5 13:02:57 abo group + rh type, blood 2022 023 [place] [facility], [address] [facility], [place], [address], 3 22:34:26 CBC w/ auto diff 2022 023 [facility], [address] [place], [address], 3 20:26:27 beta-HCG, quantitativ e, serum or plasma 2022 023 [facility], [address] [place], [address], 3 22:35:31 test, urine 2022 023 bnotzke [facility], [address] [place], [address], 3 11:45:20 Referral None recorded. Procedures None recorded. Surgeries None recorded. Imaging US, transvagina l 2024 025 TARA Not available 5 03:28:49 US, transvagina l 2022 023 TARA Not available 3 14:11:17 Medication Orders Macrobid 100 mg capsule 2024 025 [place] [facility], [address] [place], [place], [id number], 5 13:03:03 pyridoxine (vitamin B6) 25 mg tablet 2024 025 [place]861, [address] , [place], [place], [id number], 13:05:34 Unisom (doxylamine ) 25 mg tablet 2024 [facility], [address] , [place], [place], [id number], 13:05:35 ondansetron 4 mg disintegrat ing tablet 2024 [facility] #98886, [address] , [place], [place], [id number], 13:05:38 Vitamin 27 mg iron-0.8 mg tablet 2024 [facility] #41780, [address] [facility], [place], [place], [id number], 13:03:00 Patient TargetsNo targets recorded. Patient Instructions Encounter Date Encounter Id Patient Instructions Last Modified By Organization Details Last Modified Time 09/22/2024 [id number] extreme nausea and vomiting in : care instructions Not available 09/22/2024 13:05:31 [facility] OB Booklet Not available 09/22/2024 13:02:57 Reason for Referral None Reported. Results Created Date Observation Date Name Description Value Unit Range Abnormal Flag Note LastModifiedBy Organization Detail LastModifiedTime 11/15/1911/14/2022 ABO GROUP AND RH TYPE ABO group O Not Available [facility] [address] [place], [address], 11/14/2022 17:15:02 11/15/19 23 11/14/2022 ABO GROUP AND RH TYPE Rh type RH(D) POSITI VE For addit ional rayor cornell munoz refer to http: //sally wernerQue stDia gnost ics.c om/fa q/FAQ 111 (This link is being provi ded for infor lenin jeter/ educa ganesh lopez purpo ses only. ) NO COLLE CTION DATE RECEI NOAH. WE HAVE USED THE DATE THE SPECI MEN WAS RECEI NOAH BY THIS LABOR ATORY THE COLLE CTION DATE. IF THIS IS INCOR RECT, PLEAS E CONTA CT CLIEN T SERVI MIKE. PHONE NUMBE R: [phone] Not Available [facility] [address] [place], [address], 11/14/2022 17:15:02 11/14/19 23 11/14/2022 CBC (INCL UDES DIFF/ PLT) WBC 7.9 thous and/u L 4.0 - 9.8 normal Not Available [facility] [address] [place] [address], [address], 11/14/2022 12:28:35 11/14/19 23 11/14/2022 CBC (INCL UDES DIFF/ PLT) RBC 4.9 velma on/uL 3.9 - 4.9 normal Not Available [facility] [address] [place] [address], [address], 11/14/2022 12:28:35 11/14/19 23 11/14/2022 CBC (INCL UDES DIFF/ PLT) hemoglobin 13.1 g/dL 11.8 - 14.8 normal Not Available [facility] [address] [place] [address], [address], 11/14/2022 12:28:35 11/14/19 23 11/14/2022 CBC (INCL UDES DIFF/ PLT) hematocrit 40.0 % 35.5 - 44.0 normal Not Available [facility] [address] [place] [address], [address], 11/14/2022 12:28:35 11/14/19 23 11/14/2022 CBC (INCL UDES DIFF/ PLT) MCV 82.0 fL 82.0 - 99.0 normal Not Available [facility] [address] [place] [address], [address], 11/14/2022 12:28:35 11/14/19 23 11/14/2022 CBC (INCL UDES DIFF/ PLT) MCH 26.8 pg 27.2 - 32.6 low Not Available [address], [address], 11/14/2022 12:28:35 11/14/19 23 11/14/2022 CBC (INCL UDES DIFF/ PLT) MCHC 32.8 g/dL 31.5 - 35.5 normal Not Available [address], [address], 11/14/2022 12:28:35 11/14/19 23 11/14/2022 CBC (INCL UDES DIFF/ PLT) RDW-CV 13.7 % 11.5 - 14.5 normal Not Available [address], [address], 11/14/2022 12:28:35 11/14/19 23 11/14/2022 CBC (INCL UDES DIFF/ PLT) platelet 267 thous and/u L 140 - 350 normal Not Available [address], [address], 11/14/2022 12:28:35 11/14/19 23 11/14/2022 CBC (INCL UDES DIFF/ PLT) MPV 11.4 fL 9.3 - 12.4 normal Not Available [address], [address], 11/14/2022 12:28:35 11/14/19 23 11/14/2022 CBC (INCL UDES DIFF/ PLT) absolute neutrophil 5.24 thous and/u L 1.90 - 7.00 normal Not Available [address], [address], 11/14/2022 12:28:35 11/14/19 23 11/14/2022 CBC (INCL UDES DIFF/ PLT) absolute lymphocyte 1.74 thous and/u L 0.70 - 4.50 normal Not Available [address], [address], 11/14/2022 12:28:35 11/14/19 23 11/14/2022 CBC (INCL UDES DIFF/ PLT) absolute monocyte 0.46 thous and/u L 0.10 - 1.30 normal Not Available [address], [address], 11/14/2022 12:28:35 11/14/19 23 11/14/2022 CBC (INCL UDES DIFF/ PLT) absolute eosinophil 0.31 thous and/u L <0.70 normal Not Available [address], [address], 11/14/2022 12:28:35 11/14/19 23 11/14/2022 CBC (INCL UDES DIFF/ PLT) absolute basophil 0.14 thous and/u L <0.20 normal Not Available [address], [address], 11/14/2022 12:28:35 11/14/19 23 11/14/2022 CBC (INCL UDES DIFF/ PLT) absolute immature granulocyte 0.01 thous and/u L <0.03 normal Not Available [address], [address], 11/14/2022 12:28:35 11/14/19 23 11/14/2022 HCG, TOTAL , QUANT HCG, total, quant 21060 mIU/m L <5 high Refer ence Range [...] has not been valid ated by the cosmof actur er of this assay . Not Available [address], [address], 11/14/2022 13:05:23 11/14/19 23 11/13/2022 pregn sonia test, urine HCG positi ve Not Available [facility] [address] [place], [address], 11/13/2022 10:14:53 09/23/19 25 09/23/2024 CULTU RE, URINE , ROUTI NE culture, urine, routine SEE NOTE CULTU RE, URINE , ROUTI NE Micro Numbe r: [id number] Test Statu s: Final Speci men Sourc e: Urine Speci men Quali ty: Adequ ate Resul t: No Growt h Not Available [facility] [address] [place], [address], 09/23/2024 21:59:41 09/23/19 25 09/22/2024 pregn sonia test, urine HCG positi ve Not Available [facility] [address] [place], [address], 09/21/2024 21:57:53 11/14/19 23 11/13/2022 US, trans vagin al No observ ation record ed. bnotzke [address], [place], [address], 11/13/2022 23:21:24 09/24/19 25 09/22/2024 US, trans vagin al No observ ation record ed. [address] [address], [place], [address], 09/23/2024 21:59:34 Result Notes None recorded. Problems Name Problem SNOMED Code Status Onset Date Resolution Date Notes Provider Name and Address Organization Details Recorded Time Gestatio n period, 17 weeks 85936429 Completed 202001/17/2021 17 weeks gestatio n of pregnanc y; Progress : Stable Added By: Natalya Elkins Add to Current Problems : NO ProblemS tatus: Resolve Juliana jenkins, [facility] IV 17:00:29 Normal pregnanc y in multigra rufino [id number] 4106 Active 2020 Encounte r for supervis [...] ProblemS tatus: Resolve; Start Date : 12/02/19 Encou nter for supervis ion of other normal pregnanc y, third trimeste r; Severity : Moderate Progress : Stable Added By: Lesley De La Cruz Add to Current Problems : YES ProblemS tatus: Current Juliana Bennett alice, [place] [facility] IV 3 17:00:29 Gestatio n period, 10 weeks 48284265 Completed 202001/17/2021 10 weeks gestatio n of pregnanc y; Progress : Stable Added By: Jacy Dotson Add to Current Problems : NO ProblemS tatus: Resolve Juliana Bennett null, [place] [facility] IV 3 17:00:29 Gestatio n period, 23 weeks 53152981 Completed 202002/21/2021 23 weeks gestatio n of pregnanc y; Progress : Stable Added By: Jorge Argueta Add to Current Problems : NO ProblemS tatus: Resolve Juliana Bennett null, [place] [facility] IV 3 17:00:29 Gestatio n period, 28 weeks 64960426 Completed 202003/15/2021 28 weeks gestatio n of pregnanc y; Progress : Stable Added By: Jorge Argueta Add to Current Problems : NO ProblemS tatus: Resolve Juliana Bennett null, [place] [facility] IV 3 17:00:29 Antenata l screenin g for malforma tion Completed 202002/21/2021 Encounte r for antenata l screenin g for malforma tions; Progress : Stable Added By: Jorge Argueta Add to Current Problems : NO ProblemS tatus: Resolve Juliana Bennett null, [place] [facility] IV 3 17:00:29 Screenin g for malignan t neoplasm of cervix Completed 202001/17/2021 Encounte r for screenin g for malignan t neoplasm of cervix; Progress : Stable Added By: Jorge Argueta Add to Current Problems : NO ProblemS tatus: Resolve Juliana Bennett alice, [employer] [facility] [employer] IV 3 17:00:29 Body mass index 20-24 - normal 911689560 Active 2024 ÁNGEL PARSONS, MARLENI [address] [place], [address] , [facility] [employer] IV 5 16:28:51 Problem Notes None recorded. Procedures Surgical History Date Name Laterality Status Provider Name and Address Organization Details Recorded Time 07/21/2020 Date of Last Pap Smear completed Kathleen Ye [facility] 11/13/2022 10:56:18 Imaging Results Imaging Date Name Status LastModified by Organization Details LastModified Time 11/13/2022 US, transvaginal completed yoletteotzke [address], [place], [address], 11/13/2022 23:21:24 09/22/2024 US, transvaginal completed shannen [address], [place], [address], 09/23/2024 21:59:34 Procedure Notes None recorded. Medical Equipment None Reported. Allergies No known drug allergies Medications Name Sig Start Date Stop Date Status Note LastModified by Organization Details LastModified Time amoxicill in 500 mg capsule TAKE CAPSULE THREE TIMES DAILY UNTIL GONE 07/15 completed Not Available Not Available Not Available prednison e 10 mg tablet TAKE 3 TABLETS BY MOUTH DAILY FOR 5 DAYS 09/22 completed Not Available Not Available Not Available hydrocodo ne 5 mg-acetam inophen 325 mg tablet TAKE 1 TABLET BY MOUTH EVERY 6 HOURS NEEDED FOR PAIN 07/15 completed Not Available Not Available Not Available pyridoxin e (vitamin B6) 25 mg tablet Take 1 tablet 3 times a day by oral route for 30 days. 2024 active Not Available Not Available Not Avai lable sulfameth oxazole 800 mg-trimet hoprim 160 mg tablet TAKE 1 TABLET BY MOUTH IN THE MORNING AND 1 TABLET IN THE EVENING FOR 3 CONSECUT GIACOMO DAYS 09/22 completed Not Available Not Available Not Available Macrobid 100 mg capsule Take 1 capsule every 12 hours by oral route for 7 days. 2024 active Not Available Not Available Not Avai lable omeprazol e 20 mg capsule,d elayed release TAKE 1 CAPSULE BY MOUTH DAILY 30 MINUTES BEFORE BREAKFAS T 09/22 completed Not Available Not Available Not Available ergocalci ferol (vitamin D2) 1,250 mcg (50,000 unit) capsule 09/22 completed Not Available Not Available Not Available methylpre dnisolone 4 mg tablets in a dose pack FOLLOW PACKAGE DIRECTIO NS 09/22 completed Not Available Not Available Not Available ondansetr on 4 mg disintegr ating tablet Place 1 tablet every 6 hours by translin gual route as needed. 2024 active Not Available Not Available Not Avai lable Unisom (doxylami ne) 25 mg tablet Take 1/2 or 1 tablet at bedtime 2024 active Not Available Not Available Not Avai lable Vitamin 27 mg iron-0.8 mg tablet Take 1 tablet every day by oral route. 2024 active Not Available Not Available Not Avai lable 28 mg-800 mcg tablet take one tablet daily 2020 active 28-800 mg-mcg oral tablet Allow Substitu tion: True Refill Denied: No Edited by: Antonieta Dexter ) on 09/30/19 21 Stopped by: mahesh cornell(Antonieta Parsons ) on Not Available Not Available Not Available Vitals Date Recorded Body weight Body temperature Body mass index (BMI) Body height Systolic blood pressure Diastolic blood pressure Provider Name and Address Organization Details Last Updated DateTime 3 71801.0 2 g 98.7 [degF] 23.3 kg/m2 167.64 cm 100 mm[Hg] 62 mm[Hg] Kathleen Ye [facility] 3 11:02:19 Date Recorded Body height Body mass index (BMI) Body weight Body temperature Systolic blood pressure Diastolic blood pressure Provider Name and Address Organization Details Last Updated DateTime 5 167.64 cm 24.4 kg/m2 75063.4 5 g 97.9 [degF] 102 mm[Hg] 58 mm[Hg] Mckenzie Garcia [facility] 5 12:24:59 Social History Question Answer Notes LastModified by [employer] Details LastModified Time Tobacco Smoking Status Never Smoker Kathleen jenkins [facility] [employer] 11/13/2022 10:58:50 What Is Your Level Of [...] Status Question Answer Note LastModified by [employer]at [employer] Details LastModified Time What is your exercise [...] Colon Cancer N Cytomegalovirus N Hyperthyroidism N MRSA N Breast Cancer N Herpes (HSV) N Blood Transfusion N Lung Cancer N Depression N Hypothyroidism N Incontinence N Panic Attacks N Neurological Disorder N Deep Vein Thrombosis N Anxiety Disorder N Autoimmune disease N Arthritis N Tuberculosis/Positive PPD N Shingles N Polycystic Ovarian Syndrome N Cervical Cancer N Hematuria N Chlamydia N Stroke N Varicosities N Seasonal allergies N Crohn's Disease N Alzheimer's/Dementia N COPD/Emphysema N Endometriosis N HPV/Genital Warts N IBS (Irritable Bowel Syndrome) N History of Abnormal Pap N High Cholesterol N Liver Disease N Kidney Infection N Fibromyalgia N Ulcer N Kidney Disease N HIV N Gallbladder disease N Sickle Cell Disease/Trait N Von Willebrand disease N ADD/ADHD N Eating Disorder N Anemia N Diabetes Mellitus (non-insulin dependent ) N Multiple Sclerosis N Ovarian Problems N Gonorrhea N Frequent Urinary Tract infections N Osteopenia N Headaches/migraines N GERD (reflux) N Ovarian Cancer N Diabetes (insulin dependent) N Seizures/Epilepsy N Fibroids N Asthma N Heart Attack N Lupus N Endometrial Cancer N Rubella N Blood Clotting Disorder N Bipolar Disorder N Diabetes Mellitus (during ) N Ulcerative Colitis N Hepatitis N Heart Disease N Pulmonary Embolism N RPR N Chicken Pox N Osteoporosis N Gynecological History Statement/Question Response Flow Moderate Date of LMP 07/30/2024 Date of Last Pap Smear 07/21/2020 Duration of Flow (days) 6 Current Control Method Age at Menarche 15 Obstetrics History GPAL:G 4 P 3 0 1 3 Type Value Full Term 3 Spontaneous 1 Living 3 Total 4 Past Encounters Encounter ID Performer Location Encounter Start Date Encounter Closed Date Diagnosis/Indication Diagnosis SNOMED-CT Code Diagnosis ICD10 Code Diagnosis Note [id number] MARLENI [facility] [address] [place] [address] 11/13/2022 10:16:58 11/13/2022 16:26:07 test positive 660709619 Z32.01 Missed miscarriage 23664 004 O02.1 [id number] ÁNGEL ISSAMARLENI MOYA [facility] [address] [place] [address] 09/22/2024 10:57:06 09/27/2024 15:59:51 test positive [id number] Z32.01 Pt presents today for a confirmati on of visit. has not been previously confirmed at another healthcare facility. Pt voiced that she is happy about this . TVUS today showed:IUP with Cardiac Activity.. SANTIAGO consistent with LMP. SANTIAGO: 05/08/25Ge stational Age: 9w 3dFHT: 114OB history: NSVD x3 First trimester teaching provided.- --Foods and activities to avoid---We ight gain recommenda tions based on BMI---Safe meds---Tiago entation to practice-- -Delivery locations- --ASIF visit progressio n---Prenat al vitamins daily---To xoplasmosi s precaution s reviewed-- -[facility] Guide; What to expect on your maternity journey -- -S/S of SAB reviewed and when to seek care Patient was counseled on purpose, process and potential outcomes of NIPT and carrier screening. We discussed benefits, limitation s and accuracy of screenings . Alternativ es including, no testing, were reviewed. Patient was given the opportunit y to ask questions, which were addressed thoroughly . After confirming understand ing, patient provided verbal consent for NIPT and carrier screening. Plan for NIPT at next visit. --BMI: 24.4 RTC 4 weeks for 1st OB, Labs, and Physical. Urinary tr act infectious disease 57774576 N39.0 Was given Bactrim in ER for UTI. Discussed safety in and recommenda tion to switch to different antibiotic . Rx for Macrobid and urine culture sent. Nausea 214016030 R11.0 Eat dry toast or crackers in the morning before you get out of bed to avoid moving around on an empty stomach. Eat five or six mini meals a day to ensure that your stomach is never empty. Eat frequent bites of foods like nuts, fruits, or crackers. -May tolerate cold foods better-Gin hussein Supplement s-Accupres sure wrist bands-Taki ng vitamins with/after food, and specifical ly with a snack before going to bed, or in the morning after breakfast, may be helpful-Fo lic Acid Supplement if not tolerating PNV OTC for Nausea & Vomiting Vitamin B6- 25 mg TID Unisom at bedtime 12.5 mg (one half of a Unisom tablet) by mouth three times a day. If unable to keep food/fluid s down for more than 12 hours or signs s/sx of hypovolemi a- lethargy, dizziness, thirst, tachycardi a, decrease urinary volume, or frequency must go to ER for IV hydration Health Concerns Section Related Observation LastModified by Organization Detai ls LastModified Time None Recorded Concern Status LastModified by Organization Details LastModified Time None Recorded Advance Directives Directive None Recorded Payers Encounter Date Sequence Insurance Name Policy Number Policy Rees Covered Member ID Rees Member ID Guarantor Name 11/13/2022 1 [facility] ON OR AFTER 01/18/21 (MEDICAID REPLACEMENT - HMO) Prachi Rodriguez [id number] Prachi Rodriguez 09/22/2024 1 [facility] ON OR AFTER 01/18/21 (MEDICAID REPLACEMENT - HMO) Prachi Rodriguez [id number] Prachi Rodriguez Notes Date Note Type Note Provider Name and Address Organization Details Recorded Time 11/13/2022 text/html Patient is here for confirmation with u/s LMP [facility]21[facility]2022 [facility] [address] [place], [address], [employer] [facility] 11/13/2022 11:48:26 09/22/2024 text/html Confirmation VisitReported bypatient.obstetric s and gynecologyLMP: (08/01/24); flow is moderate; US IUP Confirmed; EDC (LMP): (05/08/25) Prachi presents today for confirmation. Pt states she has nausea, vomiting, and headaches, but denies vaginal bleeding or leaking fluids. MARLENI MURRAY [address] [facility], [place], [address], [facility] 09/24/2024 22:58:55 OBGyn Episode Ob Episode Information Episode Created Date Number of Fetuses Patient Bloodtype Patient rh Status Prepregnancy Weight lbs Domestic Partner Domestic Partner Phone Father Name [employer] Teacher Status 10/05/19 22 1 CLOSED Fetus Data First Name Last Name Admitted to NICU Weight (g) Sex Living Outcome Pediatric Complications Fetus ID Race Codes Race Delivery Type 2721.55 2 F Full Term [id number] Santiago Calculation Initial Santiago Date Initial Exam Date Initial Exam Provider Initial Ultrasound Date Last Menstrual Period Date Ultra Sound Weeks Gestation 0 Eighteen To Twenty Week Santiago Update Ultra Sound Date Fundal Height At Umbil Quickening Date Ultra Sound Latest Weeks Gestation Final Santiago Confirmed By Final Santiago Confirmed Date Final Santiago Date Ultra Sound Latest Days Gestation 0 [...] Domestic Partner Domestic Partner Phone Father Name [employer] Education Teacher Status 10/05/19 22 1 CLOSED Fetus Data First Name Last Name Admitted to NICU Weight (g) Sex Living Outcome Pediatric Complications Fetus ID Race Codes Race Delivery Type 3175.14 4 M Full Term [id number] Santiago Calculation Initial Santiago Date Initial Exam Date Initial Exam Provider Initial Ultrasound Date Last Menstrual Period Date Ultra Sound Weeks Gestation 0 Eighteen To Twenty Week Santiago Update Ultra Sound Date Fundal Height At Umbil Quickening Date Ultra Sound Latest Weeks Gestation Final Santiago Confirmed By Final Santiago Confirmed Date Final Santiago Date Ultra Sound Latest Days Gestation 0 [...] Domestic Partner Domestic Partner Phone Father Name [employer] Education Teacher Status 11/14/19 23 1 DELETED Santiago Calculation Initial Santiago Date Initial Exam Date Initial Exam Provider Initial Ultrasound Date Last Menstrual Period Date Ultra Sound Weeks Gestation 0 Eighteen To Twenty Week Santiago Update Ultra Sound Date Fundal Height At Umbil Quickening Date Ultra Sound Latest Weeks Gestation Final Santiago Confirmed By Final Santiago Confirmed Date Final Santiago Date Ultra Sound Latest Days Gestation 0 [...] Domestic Partner Domestic Partner Phone Father Name [employer] Education Teacher Status 11/14/19 23 1 CLOSED Fetus Data First Name Last Name Admitted to NICU Weight (g) Sex Living Outcome Pediatric Complications Fetus ID Race Codes Race Delivery Type 3628.73 6 Full Term [id number] Santiago Calculation Initial Santiago Date Initial Exam Date Initial Exam Provider Initial Ultrasound Date Last Menstrual Period Date Ultra Sound Weeks Gestation 0 Eighteen To Twenty Week Santiago Update Ultra Sound Date Fundal Height At Umbil Quickening Date Ultra Sound Latest Weeks Gestation Final Santiago Confirmed By Final Santiago Confirmed Date Final Santiago Date Ultra Sound Latest Days Gestation 0 [...] Domestic Partner Domestic Partner Phone Father Name [employer] Special Education Teacher Status 11/14/19 23 1 DELETED Santiago Calculation Initial Santiago Date Initial Exam Date Initial Exam Provider Initial Ultrasound Date Last Menstrual Period Date Ultra Sound Weeks Gestation 0 Eighteen To Twenty Week Santiago Update Ultra Sound Date Fundal Height At Umbil Quickening Date Ultra Sound Latest Weeks Gestation Final Santiago Confirmed By Final Santiago Confirmed Date Final Santiago Date Ultra Sound Latest Days Gestation 0 [...] Domestic Partner Domestic Partner Phone Father Name [employer] Education Teacher Status 09/23/19 25 1 CLOSED Fetus Data First Name Last Name Admitted to NICU Weight (g) Sex Living Outcome Pediatric Complications Fetus ID Race Codes Race Delivery Type , Spontane ous [id number] Santiago Calculation Initial Santiago Date Initial Exam Date Initial Exam Provider Initial Ultrasound Date Last Menstrual Period Date Ultra Sound Weeks Gestation 0 Eighteen To Twenty Week Santiago Update Ultra Sound Date Fundal Height At Umbil Quickening Date Ultra Sound Latest Weeks Gestation Final Santiago Confirmed By Final Santiago Confirmed Date Final Santiago Date Ultra Sound Latest Days Gestation 0 0 Menstrual History Last Menstrual Date Menses Monthly On Bcp Conception Prior Menses Frequency Hcg Plus Date Menarche Onset Age Delivery Information Delivery Date Delivery Type Labor Anesthesia Weeks Gestation Incision Type Labor Labor Length Hrs Delivered By Post Complications Tubal Sterilization Discharge Date Comments 2 Discharge Information Feeding Method Contraceptive Method Maternal HG B and HCT Levels
--- OUTSIDE RECORDS SUMMARY | 2024-09-27 15:11 | XMS_ITS | Clinical Summary ---
Author Organization [facility] Address [address] [place] [address] Care Team Providers Care Circulating Process Inspector Name Role Phone Porter Rodriguez MD Primary Care Provider [phone] Allergies No known active allergies Medications ferrous [...] on file Legal Sex Female 3:04 AM PLATE DRYING MACHINE TENDER Gender Identity Not on file Sexual Orientation Not on file Obstetrics History Para Term AB IAB SAB Ectopic Multiple Livin g Live Births 3 1 1 1 Date Outcome GA Total Labor Labor/2nd/3rd Weight Sex Type Anes PTL Kerri A1 A5 Name Clin Term Last Filed Vital Signs Vital Sign Reading Time Taken Comments Blood Pressure 120/74 09/05/2023 12:00 PM PLATE DRYING MACHINE TENDER Pulse 67 09/05/2023 12:00 PM PLATE DRYING MACHINE TENDER Temperature 36.6 C (97.9 F) 09/05/2023 10:07 AM PLATE DRYING MACHINE TENDER Respiratory Rate 20 09/05/2023 12:00 PM PLATE DRYING MACHINE TENDER Oxygen Saturation 98% 09/05/2023 12:00 PM PLATE DRYING MACHINE TENDER Inhaled Oxygen Concentration - - Weight 67 kg (147 lb 11.3 oz) 09/05/2023 10:07 A M PLATE DRYING MACHINE TENDER Height 167.6 cm (5' 6 ) 07/01/2023 1:29 PM PLATE DRYING MACHINE TENDER Body Mass Index 23.84 07/01/2023 1:29 PM PLATE DRYING MACHINE TENDER Plan of Treatment Health Maintenance Due Date [...] CDT) Hep C Ab Nonreactive Nonreactive [facility] Comment: Interpretive Data Positive and greyzone results should be confirmed by a molecular method. If positive or greyzone, a second separately collected sample should be submitted for Hepatitis C Virus RNA. Detection and Quantitation by Real-Time Reverse Shipping And Receiving Assistant-PCR.Current Interpretive data was last revised on 2017. Blood specimen (specimen) 01/17/2017 10:50 AM CDT 01/17/2017 11:46 AM CDT us Annabel Frederick MASTER RIGGER LAB MICROBIOLOGY - GEN ERAL ORDERABLES Edited Result - Final [facility] [place] [facility] Department [place] [address] from Last 3 Months or Most Recently Relevant to Health Maintenance Insurance [facility] CHOICE PLUS [place] [employer] [facility] Care Teams Circulating Process Inspector Relationship Specialty Start Date End Date Porter Rodriguez MD [address] [place] [id number] PCP - General Emergency Medicine 09/05/23
--- OUTSIDE RECORDS SUMMARY | 2024-09-27 15:11 | XMS_ITS | Patient Health Summary ---
Author Organization [facility] Address [address] [address] Care Team Providers Care Cut Out And Marking Machine Operator Name Role Phone Unavailable Primary Care Provider Unavailabl e Note from [facility],non-owned Affiliates and Associated Physician Practices is amultiple site organization consisting of ambulatory clinics and hospital sitesin [place], [place], [place] and [place]. This disclosure is being madepursuant to the Care Everywhere program and may not contain all information available regarding this patient. Last updated 18.[facility] [employer] Allergies No known active allergies Medications * Be aware that medications may not be up to date on this document. Alwaysverify current medications with the patient. * triamcinolone acetonide (KENALOG) 0.1 % ointment(Started 11/07/2020) Apply to rash 2-3x daily. 30 days supply. 4 refills by 11/07/2021 * vitamin D, ergocalciferol, (Drisdol) 1.25 MG (00057 UT) capsule(Started 07/20/2023) Take 1 (one) capsule [...] Comments Blood Pressure 98/60 07/31/2023 11:15 AM WINE CELLAR STOCK CLERK Pulse 66 07/31/2023 11:15 AM WINE CELLAR STOCK CLERK Temperature 36.7 C (98 F) 07/31/2023 11:15 AM WINE CELLAR STOCK CLERK Respiratory Rate 16 07/31/2023 11:15 AM WINE CELLAR STOCK CLERK Oxygen Saturation 97% 07/31/2023 11:15 AM WINE CELLAR STOCK CLERK Inhaled Oxygen Concentration - - Weight 66.7 kg (147 lb) 07/31/2023 11:15 AM WINE CELLAR STOCK CLERK Height 167.6 cm (5' 6 ) 07/31/2023 11:15 AM WINE CELLAR STOCK CLERK Body Mass Index 23.73 07/31/2023 11:15 AM WINE CELLAR STOCK CLERK Procedures * DE PUNCH BX SKIN SINGLE LESION(Performed 06/26/2020) Performed for Rash and other nonspecific skin eruption * DERMATOPATHOLOGY(Performed 06/23/2020) Performed for Rash and other nonspecific skin eruption * SONOGRAM - COMPLETE(Performed 12/10/2016) * TYPE + SCREEN PANEL(Performed 12/10/2016) Performed for Supervision of normal first , antepartum ([facility]) * HEPATITIS B SURFACE ANTIGEN W RFLX CONFIRMATION(Performed 12/10/2016) Performed for Supervision of normal first , antepartum ([facility]) * HIV-1 HIV-2 ANTIBODY + HIV P24 AG PANEL(Performed 12/10/2016) Performed for Supervision of normal first , antepartum ([facility]) * RPR(Performed 12/10/2016) Performed for Supervision of normal first , antepartum ([facility]) * RUBELLA ANTIBODY IGG(Performed 12/10/2016) Performed for Supervision of normal first , antepartum ([facility]) * URINALYSIS REFLEX TO MICROSCOPIC NO CULTURE(Performed 12/10/2016) Performed for Supervision of normal first , antepartum ([facility]) * CHLAMYDIA + GC AMPLIFIED PROBE(Performed 12/10/2016) Performed for Supervision of normal first , antepartum ([facility]) * CULTURE URINE(Performed 12/10/2016) Performed for Supervision of normal first , antepartum ([facility]) * GLUCOSE PROTEIN KETONE URINE - POINT OF CAR(Performed 12/10/2016) Performed for Encounter for supervision of normal first in second trimester ([facility]) * TYPE + SCREEN PANEL(Performed 11/12/2016) Performed for Encounter for supervision of normal first in second trimester ([facility]) * CBC W AUTO DIFFERENTIAL(Performed 11/12/2016) Performed for Encounter for supervision of normal first in second trimester ([facility]) * HEMOGLOBIN ELECTROPHORESIS(Performed 11/12/2016) Performed for Encounter for supervision of normal first in second trimester ([facility]) * ALPHA FETOPROTEIN BLOOD MATERNAL QUAD PANEL(Performed 11/12/2016) Performed for Encounter for supervision of normal first in second trimester ([facility]) * GLUCOSE PROTEIN KETONE URINE - POINT OF CAR(Performed 11/12/2016) Performed for Encounter for supervision of normal first in second trimester ([facility]) * SONOGRAM - COMPLETE(Performed 11/12/2016) * HCG URINE QUALITATIVE - POCT (IP) [facility](Performed 08/29/2016) * PH FLUID - POCT (AMB) [facility](Performed 08/29/2016) * WET PREP - POINT OF CARE (AMB) [facility](Performed 08/29/2016) * FUNGUS HELEN - POINT OF CARE (AMB) [facility](Performed 08/29/2016) Results * DE PUNCH BX SKIN SINGLE LESION (06/26/2020 2:38 PM WINE CELLAR STOCK CLERK) Narrative Rachael Arreguin MD - 06/26/2020 2:38 PM WINE CELLAR STOCK CLERK Rachael Arreguin MD 06/26/2020 2:39 PM Punch [...] ICAL ORDERABLES * DERMATOPATHOLOGY (06/23/2020 12:00 AM WINE CELLAR STOCK CLERK) Case Report Dermatopathology Report Case: [id number] Authorizing Provider: Rachael Arreguin MD Collected: 06/23/2020 12:00 AM Ordering Location: [facility] Received: 06/26/2020 10:27 AM Dermatology Pathologist: Lyndon Valdes MD Specimen: Skin, right knee 0 4:36 PM [facility] Final Diagnosis Specimen A. 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 0 4:36 PM [facility] Gross Description Specimen A: Received is one formalin filled container labeled with the patient's name and designated right knee. The specimen consists of a punch biopsy measuring [id number], bisected. Jar 0. 0 4:36 PM [facility] Microscopic Description Specimen A. SKIN, [...] Clinical correlation is recommended. 0 4:36 PM [facility] Disclaimer An external and internal positive and negative controls are appropriate for the histochemical, immunohistochemical and immunofluorescence stain(s) in this case (if any), except where stated explicitly. The performance characteristics of the stain(s) cited in this report were developed and its performance characteristic determined by the Dermatopathology Laboratory at [facility], directed by Dr. Sweetie Valdes. These tests need not be, and therefore are not, approved by the [place] Food and Drug Administration. The tests are used for clinical purposes. Billing Codes Specimen Charges Stain Charges 69361 1 09530 1 0 4:36 PM WINE CELLAR STOCK CLERK DERMATOPATHOLOGY LABORATORY Embedded Images 0 4:36 PM [facility] Pathology/Cytolog y TISSUE SPECIMEN FROM SKIN / Unknown 06/23/2020 06/26/2020 10:27 AM WINE CELLAR STOCK CLERK Rachael Arreguin MD LAB - PATHOLOGY/CYTO LOGY ORDERABLES Performing Organization Address City/State/[facility] Co de Phone Number DERMATOPATHOLOGY LABORATORY [facility] - Department of Dermatology [facility] Medicine [address] [place] [address], [address] [phone] * SONOGRAM - COMPLETE (12/10/2016 1:09 PM CDT) Only the most recent of2 resultswithin the time period is included. Anatomical Region Laterality Modality Other 12/10/2016 1:09 PM CDT Narrative 12/10/2016 1:59 PM CDT [facility] PHONE: FAX: Ritu. Name: CHERIE RODRIGUEZ Ritu. No: [id number] Study Date: 12/10/2016 1:09pm , Age: 13 1990, 26 Pregnancies: 1 Height: 67 in Weight: 135 lb LMP: Unknown GA by 1st: 20w2d GA by US: 20w3d GA Selected: 20w2d (From First U) SANTIAGO: 04/27/2017 Referring MD: MD Bijan, [facility] Hydraulic Riveter: Roselia Fatima RDMS CPT4: 30834 BMI: 21.14 Hist/Ind: Complete Anatomy Growth MEASUREMENTS & AGE GROWTH EVALUATION Measurement GA Range Srce %for GA Ratios ----- ---- ------- BPD 4.9 cm 20w5d (18z6u-97a1t) Hadl BPD 60% FL/BPD 0.70 HC 17.4 cm 19w6d (93r5a-09x9f) Hadl HC 39% FL/AC 0.22 AC 15.2 cm 20w3d (78p2t-21t9x) Hadl AC 53% HC/AC 1.14 (1.06 - 1.24) FL 3.4 cm 20w4d (46w2a-74p4l) Hadl FL 58% CI 0.81 (0.70 - 0.86) GA for sonogram 20w3d (77c4j-15g8a) Weight Estimate: based on (BPD,HC,AC,FL) Avg Weight: [...] Reactive Non Reactive 12/10/2016 7:41 PM CDT [facility] Blood BLOOD SPECIMEN / Unknown Venipuncture / Unknown 12/10/2016 11:49 AM CDT 12/10/2016 12:08 PM CDT Narrative [facility] - 12/10/2016 7:41 PM CDT No Laboratory evidence of HIV infection. Fanta ORDONEZ LAB - CHEMISTRY O RDERABLES Performing Organization Address City/State/[facility] Co de Phone Number [facility] [address] [place] [address] * RPR (12/10/2016 11:49 AM CDT) RPR Non Reactive Non Reactive 12/11/2016 10:44 AM CDT [facility] Blood BLOOD SPECIMEN / Unknown Venipuncture / Unknown 12/10/2016 11:49 AM CDT 12/10/2016 12:08 PM CDT Fanta Dover APRN-CHARGING PLUG PLACER LAB - CHEMISTRY O RDERABLES Performing Organization Address City/[facility]/ZIP Co de Phone Number [facility] [address] [place] [address] * RUBELLA ANTIBODY IGG (12/10/2016 11:49 AM CDT) [facility] Rubella Antibody IgG Positive - Immune 12/10/2016 12:50 PM CDT [facility] Blood BLOOD SPECIMEN / Unknown Venipuncture / Unknown 12/10/2016 11:49 AM CDT 12/10/2016 12:08 PM CDT Fanta Dover [facility] LAB - SEROLOGY OR DERABLES Performing Organization Address [facility] Co de Phone Number [facility] [address] [place] [address] * TYPE + SCREEN PANEL (12/10/2016 11:49 AM CDT) Only the most recent of2 resultswithin the time period is included. [facility] ABO O 12/10/2016 1:11 PM CDT [facility] LAB Rh Type Positive 12/10/2016 1:11 PM CDT [facility] LAB Comment:History check perfor med. No retype required. Antibody Screen Negative 12/10/2016 1:11 PM CDT [facility] LAB Blood Bank BLOOD SPECIMEN / Unknown Venipuncture / Unknown 12/10/2016 11:49 AM CDT 12/10/2016 12:08 PM CDT Fanta Dover [facility] LAB - BLOOD BANK ORDERABLES Performing Organization Address [facility] Co de Phone Number [facility] B[facility]OD B[facility] LAB [address] [place] [address] * HEPATITIS B SURFACE ANTIGEN (12/10/2016 11:49 AM CDT) [facility] HBsAg Non Reactive Non Reactive 12/10/2016 12:52 PM CDT [facility] Blood BLOOD SPECIMEN / Unknown Venipuncture / Unknown 12/10/2016 11:49 AM CDT 12/10/2016 12:08 PM CDT Fanta Haney Stanislaw [facility] - CHEMISTRY O RDERABLES [facility] [address] [place] [phone] * URINALYSIS ROUTINE AUTO (12/10/2016 11:48 AM CDT) Color UA Yellow Straw, Yellow, Dark Yellow 12/10/2016 12:49 PM CDT [facility] Clarity UA Clear 12/10/2016 12:49 PM CDT [facility] Specific [place] UA 1.017 1.005 - 1.030 12/10/2016 12:49 PM CDT [facility] pH UA 6.0 5.0 - 8.0 pH 12/10/2016 12:49 PM CDT [facility] Protein UA Negative Negative 12/10/2016 12:49 PM CDT [facility] Blood UA Negative Negative 12/10/2016 12:49 PM CDT [facility] Leukocyte UA Negative Negative 12/10/2016 12:49 PM CDT [facility] Nitrite UA Negative Negative 12/10/2016 12:49 PM CDT [facility] Glucose UA Negative Negative 12/10/2016 12:49 PM CDT [facility] Ketone UA Negative Negative 12/10/2016 12:49 PM CDT [facility] Bilirubin UA Negative Negative 12/10/2016 12:49 PM CDT [facility] Urobilinogen UA 0.2 0.1 - 1.0 EU/dL 12/10/2016 12:49 PM CDT [facility] Urine URINE SPECIMEN OBTAINED BY CLEAN CATCH PROCEDURE / Unknown Collection / Unknown 12/10/2016 11:48 AM CDT 12/10/2016 12:15 PM CDT Fanta M Stanislaw [facility] - URINALYSIS ORDERABLES Performing Organization Address [facility]/ZIP Co de Phone Number [facility] [address] [place] [address] [phone] * CHLAMYDIA + GC AMPLIFIED PROBE (12/10/2016 11:48 AM CDT) Chlamydia Amplified Probe Negative Negative 12/11/2016 9:29 AM CDT [facility] MICROBIOLOGY GC Amplified Probe Negative Negative 12/11/2016 9:29 AM CDT [facility] MICROBIOLOGY Microbiology URINE / Unknown Collection / Unknown 12/10/2016 11:48 AM CDT 12/10/2016 12:15 PM CDT Narrative [facility] MICROBIOLOGY - 12/11/2016 9:29 AM CDT This test was developed and its performance characteristics determined by the [facility] Microbiology Laboratory, [facility]. Female urine specimens tested by the [facility] have not been cleared or approved by the U.S. Food and Drug Administration (FDA). The laboratory is regulated under the Clinical Laboratory Improvement Amendments (CLIA) as qualified to perform high-complexity testing. This test is used for clinical purposes. It should not be regarded as investigational or for research. Results based on detection/no detection of ribosomal RNA by amplified method. Fanta Dover APRN-CHARGING PLUG PLACER LAB - MICROBIOLOG Y ORDERABLES Performing Organization Address City/[facility]/ZIP Co de Phone Number [facility] MICROBIOLOGY [address] [place] [address], [facility] [phone] * URINE CULTURE (12/10/2016 11:48 AM CDT) Culture <10,000 CFU/mL urogenital tye CHELSI 12/12/2016 5:29 AM CDT [facility] MICROBIOLOGY Urine URINE SPECIMEN OBTAINED BY CLEAN CATCH PROCEDURE / Unknown Collection / Unknown 12/10/2016 11:48 AM CDT 12/10/2016 12:15 PM CDT Fanta Dover FOOD OPERATIONS MANAGER-CHARGING PLUG PLACER LAB - MICROBIOLOG Y ORDERABLES Performing Organization Address City/[facility]/ZIP Co de Phone Number [facility] [address] [place] [address], [facility] [phone] * GLUCOSE PROTEIN KETONE URINE - POINT [...] OF CARE ORDERABLES [facility] [address] [phone] * ALPHA FETOPROTEIN BLOOD MATERNAL QUAD PANEL [...] 1:06 PM CDT [facility] ([facility]) hCG Value 57580 mIU/mL 11/17/2016 1:06 PM CDT [facility] ([facility]) hCG Mom 0.59 11/17/2016 1:06 PM CDT [facility] ([facility]) Estriol Value 0.88 ng/mL 11/17/2016 1:06 PM CDT [facility] ([facility]) Estriol MoM 0.97 11/17/2016 1:06 PM CDT [facility] ([facility]) SUKHJINDER Value 149.61 pg/mL 11/17/2016 1:06 PM CDT [facility] ([facility]) Sukhjinder MoM Value 0.80 11/17/2016 1:06 PM CDT [facility] ([facility]) OSBR [place] 1 [place] [address] 11/17/2016 1:06 PM CDT [facility] ([facility]) DSR (2nd Trimester) 1 [place] [address] 11/17/2016 1:06 PM CDT [facility] ([facility]) DSR (By Age) 1 IN 1039 017 1:06 PM CDT [facility] ([facility]) T18 Risk Not increased 11/17/2016 1:06 PM CDT [facility] ([facility]) T18 (by Age) 1:4050 11/17/2016 1:06 PM CDT [facility] ([facility]) Interpretation Comment 11/17/2016 1:06 PM CDT [facility] ([facility]) Comment: Interpretation: Screen Negative This result is [...] identifies 60% of Trisomy 18 pregnancies. The [place] [employer] recommends amniocentesis be offered to women age 35 and older. Recalculations are not recommended when gestational dating by LMP and ultrasound are within 10 days. Comments Comment 11/17/2016 1:06 PM CDT [facility] ([facility]) Comment: Nicolette Barraza, Ph.D., [facility] Principal Genetics Grounding Engineer References: Available Upon Request. Multiples Of Median Cutoffs Abbreviation Definitions For AFP Elevations IDD- Insulin Dep Diabetes Newell 2.5 Black 2.8 OSBR- Open Spina Bifida IDD 2.0 Twins 4.5 Risk DSR Cutoff 1:270 DSR- Down Syndrome Risk T18 Cutoff 1:100 T18- Trisomy 18 Down Syndrome and Trisomy 18 screening are considered Investigational For further inquiries contact [employer] at [phone]. PDF . 11/17/2016 1:06 PM CDT [facility] ([facility]) Blood BLOOD SPECIMEN / Unknown Venipuncture / Unknown 11/12/2016 1:00 PM CDT 11/12/2016 1:20 PM CDT Narrative [facility] ([facility]) - 11/17/2016 1:06 PM CDT Performed at: [facility] [address] [facility], [place], [place] [id number] Wire Charger: Jeanine Weber MD, Phone: [phone] Razia Tsang MD LAB - CHEMISTRY BALDEV TALBERT Performing Organization Address City/[facility]/ZIP Co de Phone Number [facility] ([facility]) [address] [place] [address] * HEMOGLOBIN ELECTROPHORESIS (11/12/2016 1:00 PM CDT) Pathologist [facility] Hemoglobin A1 97.7 97.1 - 99.1 % 11/13/2016 1:43 PM CDT [facility] Hemoglobin F 0.0 0.0 - 2.0 % 11/13/2016 1:43 PM CDT [facility] Hemoglobin S 0.0 <=0.0 % 11/13/2016 1:43 PM CDT [facility] Hemoglobin C 0.0 <=0.0 % 11/13/2016 1:43 PM CDT [facility] Hemoglobin A2 2.3 0.9 - 2.9 % 11/13/2016 1:43 PM CDT [facility] Hemoglobin E 0.0 % 11/13/2016 1:43 PM CDT [facility] Interpretation Normal Interpretation 11/13/2016 1:43 PM CDT [facility] Blood BLOOD SPECIMEN / Unknown Venipuncture / Unknown 11/12/2016 1:00 PM CDT 11/12/2016 1:20 PM CDT Razia Tsang MD LAB - CHEMISTRY BALDEV TALBERT [facility] [address] [place] [address] * (ABNORMAL) CBC W AUTO DIFFERENTIAL (11/12/2016 1:00 PM CDT) [facility] Signature WBC 10.6 4.4 - 10.7 x10E9/L 11/12/2016 1:30 PM CDT [facility] WBC Corrected x10E9/L 11/12/2016 1:30 PM CDT [facility] RBC 4.42 3.80 - 5.20 x10E12/L 11/12/2016 1:30 PM CDT [facility] Hemoglobin 12.2 12.0 - 15.6 gm/dL 11/12/2016 1:30 PM CDT [facility] Hematocrit 36.7 35.9 - 45.5 % 11/12/2016 1:30 PM CDT [facility] MCV 83.0 80.7 - 98.3 fl 11/12/2016 1:30 PM CDT [facility] MCH 27.6 26.7 - 34.0 pg 11/12/2016 1:30 PM CDT [facility] MCHC 33.2 30.8 - 35.9 gm/dL 11/12/2016 1:30 PM CDT [facility] Platelet Count 233 153 - 416 x10E9/L 11/12/2016 1:30 PM CDT [facility] RDW-CV 13.5 12.1 - 14.9 % 11/12/2016 1:30 PM CDT [facility] MPV 10.0 9.4 - 12.9 fl 11/12/2016 1:30 PM CDT [facility] Neutrophils % 73.7(H) 44.0 - 73.0 % 11/12/2016 1:30 PM CDT [facility] Lymphocytes % 16.1(L) 20.0 - 43.0 % 11/12/2016 1:30 PM CDT [facility] Monocytes % 5.6 5.0 - 13.0 % 11/12/2016 1:30 PM CDT [facility] Eosinophils % 3.5 0.0 - 6.0 % 11/12/2016 1:30 PM CDT [facility] Basophils % 0.6 0.0 - 2.0 % 11/12/2016 1:30 PM CDT [facility] Immature Granulocytes 0.5 0 - 1 % 11/12/2016 1:30 PM CDT [facility] Neutrophil Absolute 7.83(H) 2.01 - 7.14 x10E9/L 11/12/2016 1:30 PM CDT [facility] Lymphocytes Absolute 1.71 1.07 - 3.94 x10E9/L 11/12/2016 1:30 PM CDT [facility] Monocytes Absolute 0.60 0.26 - 1.07 x10E9/L 11/12/2016 1:30 PM CDT [facility] Eosinophils Absolute 0.37 0 - 0.47 x10E9/L 11/12/2016 1:30 PM CDT [facility] Basophils Absolute 0.06 0 - 0.08 x10E9/L 11/12/2016 1:30 PM CDT [facility] Immature Granulocytes Absolute 0.05 0.00 - 0.06 x10E9/L 11/12/2016 1:30 PM CDT [facility] nRBC Auto 0 /100 WBC 11/12/2016 1:30 PM CDT [facility] Blood BLOOD SPECIMEN / Unknown Venipuncture / Unknown 11/12/2016 1:00 PM CDT 11/12/2016 1:20 PM CDT Razia Tsang MD LAB - HEMATOLOGY ORD ERABLES [facility] [address] [place] [address] * PH FLUID - POCT (AMB) [facility] (08/29/2016) pH Vaginal 4.5 [facility] Vaginal swab (specimen) 08/29/2016 Shruthi Chand APRN-[facility] - POINT OF CARE ORDERABLES [facility] * WET PREP - POINT OF CARE (AMB) [facility] (08/29/2016) pH Wet Prep 4.5 [facility] Yeast Wet Prep n [facility] Trichomonas Wet Prep n [facility] Bacteria Wet Prep n [facility] Whiff Test n [facility] 08/29/2016 Shruthi Chand APRN-[facility] - POINT OF CARE ORDERABLES [facility] * FUNGUS HELEN - POINT OF CARE (AMB) [facility] (08/29/2016) [facility] Fluid specimen (specimen) 08/29/2016 Shruthi Chand APRN-[facility] - POINT OF CARE ORDERABLES Performing Organization Address [facility]/ZIP Co de Phone Number [facility] * HCG URINE QUALITATIVE - POCT (IP) [facility] (08/29/2016) Test Urine Positive [facility] Urine specimen (specimen) 08/29/2016 Shruthi Chand APRN-[facility] [facility] - POINT OF CARE ORDERABLES Performing Organization Address [facility]/State/ZIP Co de Phone Number [facility]
[2024-09-27 15:22] LABS: Basophils Percent Auto 0.3 % (0.2-1.2); Eosinophils Absolute Auto 0.1 K/mm3 (0-0.3); Eosinophils Percent Auto 0.6 % (0-4.4); Hematocrit 39.4 % (37.0-47.0); Hemoglobin 12.8 g/dL (12.0-15.0); Immature Granulocyte Absolute 0.04 K/mm3 (0.00-0.031); Immature Granulocyte Percent A 0.4 % (0-0.5); Lymphocytes Absolute Auto 1.23 K/mm3 (0.9-3.2); Lymphocytes Percent Auto 11.6 % (18.3-44.2); Mean Corpuscular HGB Conc 32.5 g/dl (32-36); Mean Corpuscular Hemoglobin 26.1 pg (26-34); Mean Corpuscular Volume 80.4 fl (80-100); Mean Platelet Volume 10.6 fl (7.4-10.4); Monocytes Absolute Auto 0.5 K/mm3 (0.1-0.6); Monocytes Percent Auto 4.7 % (2.6-8.5); Neutrophils Absolute Auto 8.7 K/mm3 (1.3-6.7); Neutrophils Percent Auto 82.4 % (45.5-73.1); Platelet Count Result 235 k/mm3 (150-375); Red Cell Distribution Width 13.2 % (11.5-14.5); White Blood Count 10.6 K/mm3 (4.5-10.0)
--- NOTE | 2024-09-27 15:26 | ED_ITS ---
HPI - Nausea/Vomiting/Diarrhea General Chief complaint: Nausea/Vomiting/Diarrhea Stated complaint: Hyperemesis-weakness 8 weeks preg Time Seen by Provider: 09/27/24 13:54 History of Present Illness HPI Narrative: 34-year-old female presenting to the emergency department for evaluation of persistent nausea vomiting during . She is , 8 weeks by last menstrual. Ultrasonography. Patient was here several days ago for similar and was discharged home after improvement and normal vital signs, labs and imaging. She has follow-up with her OBGYN who prescribed her Zofran but states that this has not been working for her. She has had nausea vomiting during previous pregnancies but states this is the worst. Denies any abdominal pain, cramping, vaginal bleeding or spotting. No trauma or injury. No fever chills, constipation but does endorse some diarrhea. No sick family members at home. Related Data Allergies Allergy/AdvReac Type Severity Reaction Status Date / Time No Known Allergies Allergy Verified 09/21/24 09:02 Review of Systems 2 Review of Systems: As reviewed above in HPI [facility] Surgical History Surgical History History of dilation and curettage 2022 Family History Family History Father Hypertension Diabetes mellitus COPD (chronic obstructive pulmonary disease) Mother Hypertension Diabetes mellitus Social History Social History Smoking status: Unknown if ever smoked Smokeless tobacco user: other Additional smoking assessment comments: hookah Alcohol intake: never Substance use: never Substance use type: does not use Do You Feel Safe in your Home?: Yes Lack of Transportation: No Lack of Food: Never True Current Housing: I Have Housing Concerned About Future Housing: No Difficulty Paying Gas/Electric Bills: No Difficulty Paying for Meds: No Currently Unemployed: Decline to Answer Education: High School Diploma/GED Difficulty w/ Childcare or Family Care: No Living arrangements: with family Occupation/Education: occupation Gender identity (if verbalized by the patient): Female Sexual Orientation (if Verbalized by the Patient): Straight or Heterosexual Exam 2 Narrative: GENERAL: [Well-appearing, well-nourished, and in no acute distress.] HEAD: [Normocephalic, atraumatic.] EYES: [PERRLA and EOMI.] ENT: Nares clear, no rhinorrhea or epistaxis. Mucous membranes moist. NECK: Supple. CHEST: [Clear to auscultation. No respiratory distress.] HEART: [Regular rate and rhythm]. No murmur heard. [Normal peripheral pulses.] ABDOMEN: [Soft, nondistended], [nontender], [No rigidity or guarding] EXTREMITIES: Normal range of motion. [No edema.] SKIN: Warm, dry, no rash. NEURO: [No focal deficits]. Alert and oriented [x3.] PSYCH: [Normal mood and affect.] Course Vital Signs Vital signs: Vital Signs Temperature 36.8 C 09/27/24 13:19 Pulse Rate 78 09/27/24 13:19 Respiratory Rate 16 09/27/24 13:19 Blood Pressure 112/74 09/27/24 13:19 Pulse Oximetry 100 09/27/24 13:19 Oxygen Delivery Room Air 09/27/24 13:19 Temperature 36.8 C 09/27/24 13:19 Pulse Rate 78 09/27/24 13:19 Respiratory Rate 16 09/27/24 13:19 Blood Pressure 112/74 09/27/24 13:19 Pulse Oximetry 100 09/27/24 13:19 Oxygen Delivery Room Air 09/27/24 13:19 MDM - Nausea/Vomiting/Diarrhea MDM Narrative Medical decision making narrative: 34-year-old otherwise healthy appearing female presenting to the emergency department for persistent nausea vomiting during . She is 8 weeks by ultrasonography, , no complications during previous aside from nausea vomiting. Her OBGYN prescribed her Zofran which is not been improving her symptoms. Previously had abdominal pain which is resolved. No abdominal cramping, vaginal bleeding or vaginal spotting. No leakage of fluids. She has normal vital signs and unremarkable physical examination. Suspicion presently for nausea and vomiting in , hyperemesis gravidarum, COVID, flu, viral syndrome. Gastroenteritis. Workup was ordered including CBC, CMP, PT, PTT, type and screen. She will be given a combination medications including promethazine, diphenhydramine, vitamin B6 given that she has failed conservative measures such as Zofran and Reglan according to her. Patient provided fluid bolus and re-evaluated frequently. Patient re-evaluated with improvement her nausea and no longer vomiting. Patient will have to follow up with her OBGYN for close outpatient re-evaluation and potential treatments for her nausea vomiting . She is safe and stable for discharge home at this time. Her laboratory studies are unremarkable. No signs of infection. Medical Records Attestation: I reviewed the patient's medical records. Lab Data Attestation: I reviewed the patient's lab results. 09/27/24 15:15 09/27/24 15:15 Labs: Lab Results 09/27/24 09/27/24 Range/Units 15:15 15:27 WBC 10.6 H (4.5-10.0) K/mm3 RBC 4.90 (4.2-5.4) M/mm3 Hgb 12.8 (12.0-15.0) g/dL Hct 39.4 (37.0-47.0) % MCV 80.4 (80-100) fl MCH 26.1 (26-34) pg MCHC 32.5 (32-36) g/dl RDW 13.2 (11.5-14.5) % Plt Count 235 (150-375) k/mm3 MPV 10.6 H (7.4-10.4) fl Immature Gran % (Auto) 0.4 (0-0.5) % Neut % (Auto) 82.4 H (45.5-73.1) % Lymph % (Auto) 11.6 L (18.3-44.2) % [place] % (Auto) 4.7 (2.6-8.5) % Eos % (Auto) 0.6 (0-4.4) % Baso % (Auto) 0.3 (0.2-1.2) % Lymph # (Auto) 1.23 (0.9-3.2) K/mm3 [place] # (Auto) 0.5 (0.1-0.6) K/mm3 Eos # (Auto) 0.1 (0-0.3) K/mm3 Baso # (Auto) 0.0 (0.0-0.1) K/mm3 Abs Immat Gran (auto) 0.04 H (0.00-0.031) K/mm3 Absolute Neuts (auto) 8.7 H (1.3-6.7) K/mm3 Absolute Nucleated RBC 0.000 (0.0-0.012) K/mm3 Nucleated RBC % 0.0 (0.0-0.2) % Sodium 134 L (137-145) mmol/L Potassium 3.8 (3.4-5.0) mmol/L Chloride 100 (98-107) mmol/L Carbon Dioxide 23 (22-30) mmol/L Anion Gap 11 (4-12) mmol/L BUN 8 (7-17) mg/dL Creatinine 0.58 L (0.7-1.0) mg/dL Estim Creat Clear Calc 110 ml/min Estimated GFR > 60 (59 - ) Glucose 84 (65-110) mg/dL Calcium 9.3 (8.4-10.2) mg/dL Total Bilirubin 0.6 (0.2-1.3) mg/dL AST 22 (14-36) U/L ALT 12 (6-35) U/L Alkaline Phosphatase 63 (38-126) U/L Total Protein 8.0 (6.3-8.2) g/dL Albumin 4.6 (3.5-5.1) g/dL Lipase 87 (23-300) U/L Urine Color Dark yellow (Yellow) Urine Appearance Cloudy H (Clear) Urine pH 5.5 (5.0-9.0) Ur Specific [place] 1.033 (1.001-1.035) Urine Protein 1+ H (Negative) mg/dL Urine Glucose (UA) Negative (Negative) mg/dL Urine Ketones 4+ H (Negative) mg/dL Ur Blood (Man) Negative (Negative) Urine Nitrate Negative (Negative) Urine Bilirubin Negative (Negative) Urine Urobilinogen 1.0 (<2.0) mg/dL Leukocyte Esterase Rfl Negative (Negative) YESSENIA/UL Urine RBC 0-2 (0-2) /hpf Urine WBC 0-5 (0-3) /hpf Ur Squamous Epith Cells Moderate (Few) /hpf Urine Bacteria 1+ H /hpf Urine Casts 3-5 Discharge Plan Discharge Clinical Impression: Nausea and vomiting during Patient Disposition: Home, Self-Care Condition: Stable Instructions: Antibiotic Form, Nausea and Vomiting in (ED), Acute Nausea and Vomiting (ED) Additional Instructions: We will send you home with several medications to try for nausea and vomiting during her . Follow-up with your OBGYN for further recommendations. No urgent or emergent concerns your laboratory studies are reassuring. Patient Language: Cook Islander Prescriptions: New doxylamine succinate 25 mg tablet 25 mg PO Q6H PRN (Reason: nausea and vomiting) Qty: 30 0RF pyridoxine (vitamin B6) 25 mg tablet 25 mg PO Q6H PRN (Reason: nausea and vomiting) Qty: 30 0RF No Action metoclopramide HCl 5 mg tablet 5 mg PO Q6H PRN (Reason: nausea and vomiting) Qty: 14 0RF cephalexin 500 mg capsule 500 mg PO Q6H 4 Days Qty: 16 0RF Follow-up/Referrals: Porter Rodriguez MD [Primary Care Provider] - Time of Disposition: 18:55
[2024-09-27 15:33] LABS: Alanine Aminotransferase 12 U/L (6-35); Albumin Level 4.6 g/dL (3.5-5.1); Alkaline Phosphatase 63 U/L (38-126); Anion Gap 11 mmol/L (4-12); Aspartate Amino Transferase 22 U/L (14-36); Bilirubin,Total 0.6 mg/dL (0.2-1.3); Blood Urea Nitrogen 8 mg/dL (7-17); Calcium 9.3 mg/dL (8.4-10.2); Carbon Dioxide 23 mmol/L (22-30); Chloride 100 mmol/L (98-107); Estimated CRCL calculation 110 ml/min; Estimated Glomerular Filt Rate > 60; Glucose 84 mg/dL (65-110); Lipase 87 U/L (23-300); Potassium 3.8 mmol/L (3.4-5.0); Sodium 134 mmol/L (137-145)
[2024-09-27] MEDS: diphenhydrAMINE HCl INJ 50 MG/ML VIAL 25 MG IV PUSH (15:34)
[2024-09-27] MEDS: PROMETHAZINE HCL 25 MG/ML AMPUL 12.5 MG IV PUSH (15:35)
[2024-09-27] MEDS: LACTATED RINGERS 1,000 ML 999 ML IV CONT (15:35)
[2024-09-27 15:49] LABS: Add Urine Microscopic? YES; Appearance Urine Cloudy (Clear); Bacteria Urine 1+ /hpf; Bilirubin Urine Negative (Negative); Blood Urine Negative (Negative); Color Urine Dark Yellow (Yellow); Glucose Urine UA Negative (Negative); Ketones Urine 4+ mg/dL (Negative); Leukocyte Esterase Ur Negative LEU/UL (Negative); Nitrate Urine Negative (Negative); Protein Urine 1+ mg/dL (Negative); RBC Urine 0-2 /hpf (0-2); Specific Grav Ur 1.033 (1.001-1.035); Squamous Epithelial Cell Urine Moderate /hpf (Few); WBC Urine 0-5 /hpf (0-3); pH Urine 5.5 (5.0-9.0)
--- OUTSIDE RECORDS SUMMARY | 2024-09-27 16:47 | XMS_ITS | Clinical Summary ---
Author Organization [facility] Address [address] [place] [address] Care Team Providers Care Steel Chipper Name Role Phone Porter Rodriguez MD Primary Care Provider [phone] Allergies No known active allergies Medications ferrous [...] on file Legal Sex Female 3:04 AM APPLICATION DEVELOPMENT INTERN Gender Identity Not on file Sexual Orientation Not on file Obstetrics History Para Term AB IAB SAB Ectopic Multiple Livin g Live Births 3 1 1 1 Date Outcome GA Total Labor Labor/2nd/3rd Weight Sex Type Anes PTL Kerri A1 A5 Name Clin Term Last Filed Vital Signs Vital Sign Reading Time Taken Comments Blood Pressure 120/74 09/05/2023 12:00 PM APPLICATION DEVELOPMENT INTERN Pulse 67 09/05/2023 12:00 PM APPLICATION DEVELOPMENT INTERN Temperature 36.6 C (97.9 F) 09/05/2023 10:07 AM APPLICATION DEVELOPMENT INTERN Respiratory Rate 20 09/05/2023 12:00 PM APPLICATION DEVELOPMENT INTERN Oxygen Saturation 98% 09/05/2023 12:00 PM APPLICATION DEVELOPMENT INTERN Inhaled Oxygen Concentration - - Weight 67 kg (147 lb 11.3 oz) 09/05/2023 10:07 A M APPLICATION DEVELOPMENT INTERN Height 167.6 cm (5' 6 ) 07/01/2023 1:29 PM APPLICATION DEVELOPMENT INTERN Body Mass Index 23.84 07/01/2023 1:29 PM APPLICATION DEVELOPMENT INTERN Plan of Treatment Health Maintenance Due Date [...] CDT) Hep C Ab Nonreactive Nonreactive [facility] Comment: Interpretive Data Positive and greyzone results should be confirmed by a molecular method. If positive or greyzone, a second separately collected sample should be submitted for Hepatitis C Virus RNA. Detection and Quantitation by Real-Time Reverse Helpdesk Administrator-PCR.Current Interpretive data was last revised on 2017. Blood specimen (specimen) 01/17/2017 10:50 AM CDT 01/17/2017 11:46 AM CDT us Annabel Frederick RN GYN LAB MICROBIOLOGY - GEN ERAL ORDERABLES Edited Result - Final [facility] [place] [facility] Department [place] [address] from Last 3 Months or Most Recently Relevant to Health Maintenance Insurance [facility] CHOICE PLUS [place] [employer] DIVISION [facility] Care Teams Steel Chipper Relationship Specialty Start Date End Date Porter Rodriguez MD [address] [place] [id number] PCP - General Emergency Medicine 09/05/23
--- OUTSIDE RECORDS SUMMARY | 2024-09-27 16:47 | XMS_ITS | Clinical Summary ---
Author Organization [facility] [employer] Address [address] [facility] [place] [address] Care Team Providers Care Document Reviewer Name Role Phone Unavailable Primary Care Provider Unavailabl e Source Comments [facility] [employer],non-owned Affiliates and Associated Physician Practices is amultiple site organization consisting of ambulatory clinics and hospital sitesin [place], [place], [place] and [place]. This disclosure is being madepursuant to the Care Everywhere program and may not contain all information available regarding this patient. Last updated 18.[facility] [employer] Allergies No known active allergies Medications * [...] Active vitamin D, ergocalciferol, (Drisdol) 1.25 MG (14782 UT) capsule Take 1 (one) capsule by [...] 021 Assessment & Plan (08/09/2020 11:10 AM SAND CUTTER): - More eczematous in appearance today nummular eczema vs ACD, less likely PSO - Start Lidex ointment up to BID PRN to flared areas on body - Continue triamcinolone ointment to thinner areas on body PRN - Future considerations: patch testing if not improved on above regimen Fissure in skin of both feet 08/09/2020 Assessment & Plan (08/09/2020 11:10 AM SAND CUTTER): - Counseled patient on difficult to treat [...] Comments Blood Pressure 98/60 07/31/2023 11:15 AM SAND CUTTER Pulse 66 07/31/2023 11:15 AM SAND CUTTER Temperature 36.7 C (98 F) 07/31/2023 11:15 AM SAND CUTTER Respiratory Rate 16 07/31/2023 11:15 AM SAND CUTTER Oxygen Saturation 97% 07/31/2023 11:15 AM SAND CUTTER Inhaled Oxygen Concentration - - Weight 66.7 kg (147 lb) 07/31/2023 11:15 AM SAND CUTTER Height 167.6 cm (5' 6 ) 07/31/2023 11:15 AM SAND CUTTER Body Mass Index 23.73 07/31/2023 11:15 AM SAND CUTTER Plan of Treatment Health Maintenance Due Date [...] Reactive Non Reactive 12/10/2016 7:41 PM CDT [facility] Blood BLOOD SPECIMEN / Unknown Venipuncture / Unknown 12/10/2016 11:49 AM CDT 12/10/2016 12:08 PM CDT Narrative [facility] - 12/10/2016 7:41 PM CDT No Laboratory evidence of HIV infection. Fanta [place] BUSINESS MANAGEMENT ASSOCIATE-CANDLE MOLDER HAND LAB - CHEMISTRY O RDERABLES Performing Organization Address City/State/[facility] Co de Phone Number [facility] [place] [address] from Last 3 Months or Most Recently Relevant to Health Maintenance
--- OUTSIDE RECORDS SUMMARY | 2024-09-27 16:47 | XMS_ITS | Referral Summary ---
Author Organization [facility] Address [address] [place] [address] Care Team Providers Care Cashier Gambling Name Role Phone Porter Rodriguez MD Primary Care Provider [phone] Allergies No known active allergies Medications ferrous [...] on file Legal Sex Female 3:04 AM PATTERN CARRIER Gender Identity Not on file Sexual Orientation Not on file Last Filed Vital Signs Vital Sign Reading Time Taken Comments Blood Pressure 120/74 09/05/2023 12:00 PM PATTERN CARRIER Pulse 67 09/05/2023 12:00 PM PATTERN CARRIER Temperature 36.6 C (97.9 F) 09/05/2023 10:07 AM PATTERN CARRIER Respiratory Rate 20 09/05/2023 12:00 PM PATTERN CARRIER Oxygen Saturation 98% 09/05/2023 12:00 PM PATTERN CARRIER Inhaled Oxygen Concentration - - Weight 67 kg (147 lb 11.3 oz) 09/05/2023 10:07 A M PATTERN CARRIER Height 167.6 cm (5' 6 ) 07/01/2023 1:29 PM PATTERN CARRIER Body Mass Index 23.84 07/01/2023 1:29 PM PATTERN CARRIER Plan of Treatment Not on file Procedures [...] RNA. Detection and Quantitation by Real-Time Reverse Electrical Integrator-PCR.Current Interpretive data was last revised on 2017. Blood specimen (specimen) 01/17/2017 10:50 AM CDT 01/17/2017 11:46 AM CDT us Annabel Frederick HAIR ASSISTANT LAB MICROBIOLOGY - GEN ERAL ORDERABLES Edited Result - Final [facility] Department [place] [address] from Last 3 Months or Most Recently Relevant to Health Maintenance Insurance [facility] CHOICE PLUS [place] [employer] DIVISION [facility] Care Teams Cashier Gambling Relationship Specialty Start Date End Date Porter Rodriguez MD [address] [place] [id number] PCP - General Emergency Medicine 09/05/23
--- OUTSIDE RECORDS SUMMARY | 2024-09-27 16:48 | XMS_ITS | Patient Health Summary ---
Author Organization [facility] Address [address] [place] [address] Care Team Providers Care Research And Evaluation Analyst Name Role Phone Unavailable Primary Care Provider Unavailabl e Note from [facility],non-owned Affiliates and Associated Physician Practices is amultiple site organization consisting of ambulatory clinics and hospital sitesin [place], [place], [place] and [place]. This disclosure is being madepursuant to the Care Everywhere program and may not contain all information available regarding this patient. Last updated 18.[facility] Hochy eto Allergies No known active allergies Medications * Be aware that medications may not be up to date on this document. Alwaysverify current medications with the patient. * triamcinolone acetonide (KENALOG) 0.1 % ointment(Started 11/07/2020) Apply to rash 2-3x daily. 30 days supply. 4 refills by 11/07/2021 * vitamin D, ergocalciferol, (Drisdol) 1.25 MG (28679 UT) capsule(Started 07/20/2023) Take 1 (one) capsule [...] Comments Blood Pressure 98/60 07/31/2023 11:15 AM DIFFERENTIAL TESTER Pulse 66 07/31/2023 11:15 AM DIFFERENTIAL TESTER Temperature 36.7 C (98 F) 07/31/2023 11:15 AM DIFFERENTIAL TESTER Respiratory Rate 16 07/31/2023 11:15 AM DIFFERENTIAL TESTER Oxygen Saturation 97% 07/31/2023 11:15 AM DIFFERENTIAL TESTER Inhaled Oxygen Concentration - - Weight 66.7 kg (147 lb) 07/31/2023 11:15 AM DIFFERENTIAL TESTER Height 167.6 cm (5' 6 ) 07/31/2023 11:15 AM DIFFERENTIAL TESTER Body Mass Index 23.73 07/31/2023 11:15 AM DIFFERENTIAL TESTER Procedures * VT PUNCH BX SKIN SINGLE LESION(Performed 06/26/2020) Performed for Rash and other nonspecific skin eruption * DERMATOPATHOLOGY(Performed 06/23/2020) Performed for Rash and other nonspecific skin eruption * SONOGRAM - COMPLETE(Performed 12/10/2016) * TYPE + SCREEN PANEL(Performed 12/10/2016) Performed for Supervision of normal first , antepartum ([facility]) * HEPATITIS B SURFACE ANTIGEN W RFLX CONFIRMATION(Performed 12/10/2016) Performed for Supervision of normal first , antepartum ([facility]) * HIV-1 HIV-2 ANTIBODY + HIV P24 AG PANEL(Performed 12/10/2016) Performed for Supervision of normal first , antepartum ([facility]) * RPR(Performed 12/10/2016) Performed for Supervision of normal first , antepartum ([facility]) * RUBELLA ANTIBODY IGG(Performed 12/10/2016) Performed for Supervision of normal first , antepartum ([facility]) * URINALYSIS REFLEX TO MICROSCOPIC NO CULTURE(Performed 12/10/2016) Performed for Supervision of normal first , antepartum ([facility]) * CHLAMYDIA + GC AMPLIFIED PROBE(Performed 12/10/2016) Performed for Supervision of normal first , antepartum ([facility]) * CULTURE URINE(Performed 12/10/2016) Performed for Supervision of normal first , antepartum ([facility]) * GLUCOSE PROTEIN KETONE URINE - POINT OF CAR(Performed 12/10/2016) Performed for Encounter for supervision of normal first in second trimester ([facility]) * TYPE + SCREEN PANEL(Performed 11/12/2016) Performed for Encounter for supervision of normal first in second trimester ([facility]) * CBC W AUTO DIFFERENTIAL(Performed 11/12/2016) Performed for Encounter for supervision of normal first in second trimester ([facility]) * HEMOGLOBIN ELECTROPHORESIS(Performed 11/12/2016) Performed for Encounter for supervision of normal first in second trimester ([facility]) * ALPHA FETOPROTEIN BLOOD MATERNAL QUAD PANEL(Performed 11/12/2016) Performed for Encounter for supervision of normal first in second trimester ([facility]) * GLUCOSE PROTEIN KETONE URINE - POINT OF CAR(Performed 11/12/2016) Performed for Encounter for supervision of normal first in second trimester ([facility]) * SONOGRAM - COMPLETE(Performed 11/12/2016) * HCG URINE QUALITATIVE - POCT (IP) [facility](Performed 08/29/2016) * PH FLUID - POCT (AMB) [facility](Performed 08/29/2016) * WET PREP - POINT OF CARE (AMB) [facility](Performed 08/29/2016) * FUNGUS HELEN - POINT OF CARE (AMB) [facility](Performed 08/29/2016) Results * VT PUNCH BX SKIN SINGLE LESION (06/26/2020 2:38 PM DIFFERENTIAL TESTER) Narrative Rachael Arreguin MD - 06/26/2020 2:38 PM DIFFERENTIAL TESTER Rachael Arreguin MD 06/26/2020 2:39 PM [...] ICAL ORDERABLES * DERMATOPATHOLOGY (06/23/2020 12:00 AM DIFFERENTIAL TESTER) Case Report Dermatopathology Report Case: [id number] Authorizing Provider: Rachael Arreguin MD Collected: 06/23/2020 12:00 AM Ordering Location: [facility] Received: 06/26/2020 10:27 AM Dermatology Pathologist: Lyndon Valdes MD Specimen: Skin, right knee 0 4:36 PM [facility] DERMATOPATHOLOGY LABORATORY Final Diagnosis Specimen A. 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 0 4:36 PM [facility] DERMATOPATHOLOGY LABORATORY Gross Description Specimen A: Received is one formalin filled container labeled with the patient's name and designated right knee. The specimen consists of a punch biopsy measuring [id number], bisected. Jar 0. 0 4:36 PM [facility] DERMATOPATHOLOGY LABORATORY Microscopic Description Specimen A. SKIN, [...] Clinical correlation is recommended. 0 4:36 PM [facility] DERMATOPATHOLOGY LABORATORY Disclaimer An external and internal positive and negative controls are appropriate for the histochemical, immunohistochemical and immunofluorescence stain(s) in this case (if any), except where stated explicitly. The performance characteristics of the stain(s) cited in this report were developed and its performance characteristic determined by the Dermatopathology Laboratory at [facility], directed by Dr. Sweetie Valdes. These tests need not be, and therefore are not, approved by the [place] Food and Drug Administration. The tests are used for clinical purposes. Billing Codes Specimen Charges Stain Charges 60127 1 33400 1 0 4:36 PM DIFFERENTIAL TESTER DERMATOPATHOLOGY LABORATORY Embedded Images 0 4:36 PM [facility] DERMATOPATHOLOGY LABORATORY Pathology/Cytolog y TISSUE SPECIMEN FROM SKIN / Unknown 06/23/2020 06/26/2020 10:27 AM DIFFERENTIAL TESTER Rachael Arreguin MD LAB - PATHOLOGY/CYTO LOGY ORDERABLES Performing Organization Address City/State/[facility] Co de Phone Number DERMATOPATHOLOGY LABORATORY [facility] - Department of Dermatology [facility] Medicine [address] [place] [address], [address] Floor [address] [phone] * SONOGRAM - COMPLETE (12/10/2016 1:09 PM CDT) Only the most recent of2 resultswithin the time period is included. Anatomical Region Laterality Modality Other 12/10/2016 1:09 PM CDT Narrative 12/10/2016 1:59 PM CDT [facility] PHONE: FAX: Ritu. Name: CHERIE RODRIGUEZ Ritu. No: [id number] Study Date: 12/10/2016 1:09pm , Age: 13 1990, 26 Pregnancies: 1 Height: 67 in Weight: 135 lb LMP: Unknown GA by 1st: 20w2d GA by US: 20w3d GA Selected: 20w2d (From First U) SANTIAGO: 04/27/2017 Referring MD: MD Bijan, [facility] [employer] Hatcher[employer] Supervisor: Roselia Fatima RDMS CPT4: 40146 BMI: 21.14 Hist/Ind: Complete Anatomy Growth MEASUREMENTS & AGE GROWTH EVALUATION Measurement GA Range Srce %for GA Ratios ----- ---- ------- BPD 4.9 cm 20w5d ([id number]) Hadl BPD 60% FL/BPD 0.70 HC 17.4 cm 19w6d (25i8a-34x5l) Hadl HC 39% FL/AC 0.22 AC 15.2 cm 20w3d (87d4c-61e7f) Hadl AC 53% HC/AC 1.14 (1.06 - 1.24) FL 3.4 cm 20w4d (04n4j-72z8q) Hadl FL 58% CI 0.81 (0.70 - 0.86) GA for sonogram 20w3d (98a5c-62s6i) Weight Estimate: based on (BPD,HC,AC,FL) Avg Weight: [...] Reactive Non Reactive 12/10/2016 7:41 PM CDT [facility] Blood BLOOD SPECIMEN / Unknown Venipuncture / Unknown 12/10/2016 11:49 AM CDT 12/10/2016 12:08 PM CDT Narrative [facility] - 12/10/2016 7:41 PM CDT No Laboratory evidence of HIV infection. Fanta ORDONEZ LAB - CHEMISTRY O RDERABLES Performing Organization Address City/State/[facility] Co de Phone Number [facility] [address] [place] [address] * RPR (12/10/2016 11:49 AM CDT) RPR Non Reactive Non Reactive 12/11/2016 10:44 AM CDT [facility] Blood BLOOD SPECIMEN / Unknown Venipuncture / Unknown 12/10/2016 11:49 AM CDT 12/10/2016 12:08 PM CDT Fanta Dover APRN-EXECUTIVE ADMINISTRATIVE ASSISTANT LAB - CHEMISTRY O RDERABLES Performing Organization Address City/[facility]/ZIP Co de Phone Number [facility] [address] [place] [address] * RUBELLA ANTIBODY IGG (12/10/2016 11:49 AM CDT) [facility] Rubella Antibody IgG Positive - Immune 12/10/2016 12:50 PM CDT [facility] Blood BLOOD SPECIMEN / Unknown Venipuncture / Unknown 12/10/2016 11:49 AM CDT 12/10/2016 12:08 PM CDT Fanta Dover [facility] - SEROLOGY OR DERABLES Performing Organization Address [facility] Co de Phone Number [facility] [address] [place] [address] * TYPE + SCREEN PANEL (12/10/2016 11:49 AM CDT) Only the most recent of2 resultswithin the time period is included. [facility] ABO O 12/10/2016 1:11 PM CDT [facility] Rh Type Positive 12/10/2016 1:11 PM CDT [facility] Comment:History check perfor med. No retype required. Antibody Screen Negative 12/10/2016 1:11 PM CDT [facility] Blood Bank BLOOD SPECIMEN / Unknown Venipuncture / Unknown 12/10/2016 11:49 AM CDT 12/10/2016 12:08 PM CDT Fanta Dover [facility] - BLOOD BANK ORDERABLES Performing Organization Address [facility] Co de Phone Number [facility] [address] [place] [address] * HEPATITIS B SURFACE ANTIGEN (12/10/2016 11:49 AM CDT) [facility] HBsAg Non Reactive Non Reactive 12/10/2016 12:52 PM CDT [facility] Blood BLOOD SPECIMEN / Unknown Venipuncture / Unknown 12/10/2016 11:49 AM CDT 12/10/2016 12:08 PM CDT Fanta Haney Stanislaw [facility] - CHEMISTRY O RDERABLES [facility] [address] [place] [phone] * URINALYSIS ROUTINE AUTO (12/10/2016 11:48 AM CDT) Color UA Yellow Straw, Yellow, Dark Yellow 12/10/2016 12:49 PM CDT [facility] Clarity UA Clear 12/10/2016 12:49 PM CDT [facility] Specific [place] UA 1.017 1.005 - 1.030 12/10/2016 12:49 PM CDT [facility] pH UA 6.0 5.0 - 8.0 pH 12/10/2016 12:49 PM CDT [facility] Protein UA Negative Negative 12/10/2016 12:49 PM CDT [facility] Blood UA Negative Negative 12/10/2016 12:49 PM CDT [facility] Leukocyte UA Negative Negative 12/10/2016 12:49 PM CDT [facility] Nitrite UA Negative Negative 12/10/2016 12:49 PM CDT [facility] Glucose UA Negative Negative 12/10/2016 12:49 PM CDT [facility] Ketone UA Negative Negative 12/10/2016 12:49 PM CDT [facility] Bilirubin UA Negative Negative 12/10/2016 12:49 PM CDT [facility] Urobilinogen UA 0.2 0.1 - 1.0 EU/dL 12/10/2016 12:49 PM CDT [facility] Urine URINE SPECIMEN OBTAINED BY CLEAN CATCH PROCEDURE / Unknown Collection / Unknown 12/10/2016 11:48 AM CDT 12/10/2016 12:15 PM CDT Fanta M Stanislaw [facility] - URINALYSIS ORDERABLES Performing Organization Address [facility]/ZIP Co de Phone Number [facility] [address] [place] [phone] * CHLAMYDIA + GC AMPLIFIED PROBE (12/10/2016 11:48 AM CDT) Chlamydia Amplified Probe Negative Negative 12/11/2016 9:29 AM CDT [facility] GC Amplified Probe Negative Negative 12/11/2016 9:29 AM CDT [facility] Microbiology URINE / Unknown Collection / Unknown 12/10/2016 11:48 AM CDT 12/10/2016 12:15 PM CDT Narrative [facility] - 12/11/2016 9:29 AM CDT This test was developed and its performance characteristics determined by the [facility], [facility]. Female urine specimens tested by the [facility] have not been cleared or approved by the U.S. Food and Drug Administration (FDA). The laboratory is regulated under the Clinical Laboratory Improvement Amendments (CLIA) as qualified to perform high-complexity testing. This test is used for clinical purposes. It should not be regarded as investigational or for research. Results based on detection/no detection of ribosomal RNA by amplified method. Fanta Dover APRN-EXECUTIVE ADMINISTRATIVE ASSISTANT LAB - MICROBIOLOG Y ORDERABLES Performing Organization Address City/[facility]/ZIP Co de Phone Number [facility] [address] [place] [address], [place] [phone] * URINE CULTURE (12/10/2016 11:48 AM CDT) Culture <10,000 CFU/mL urogenital tye CHELSI 12/12/2016 5:29 AM CDT [facility] Urine URINE SPECIMEN OBTAINED BY CLEAN CATCH PROCEDURE / Unknown Collection / Unknown 12/10/2016 11:48 AM CDT 12/10/2016 12:15 PM CDT Fanta Dover WOOD BORING MACHINE OPERATOR-EXECUTIVE ADMINISTRATIVE ASSISTANT LAB - MICROBIOLOG Y ORDERABLES Performing Organization Address City/[facility]/ZIP Co de Phone Number [facility] [address] [place] [address], [place] [phone] * GLUCOSE PROTEIN KETONE URINE - POINT [...] OF CARE ORDERABLES [facility] [address] [phone] * ALPHA FETOPROTEIN BLOOD MATERNAL QUAD PANEL [...] 1:06 PM CDT [facility] ([facility]) hCG Value 57445 mIU/mL 11/17/2016 1:06 PM CDT [facility] ([facility]) hCG Mom 0.59 11/17/2016 1:06 PM CDT [facility] ([facility]) Estriol Value 0.88 ng/mL 11/17/2016 1:06 PM CDT [facility] ([facility]) Estriol MoM 0.97 11/17/2016 1:06 PM CDT [facility] ([facility]) SUKHJINDER Value 149.61 pg/mL 11/17/2016 1:06 PM CDT [facility] ([facility]) Sukhjinder MoM Value 0.80 11/17/2016 1:06 PM CDT [facility] ([facility]) OSBR [place] 1 [place] [address] 11/17/2016 1:06 PM CDT [facility] ([facility]) DSR (2nd Trimester) 1 [place] [address] 11/17/2016 1:06 PM CDT [facility] ([facility]) DSR (By Age) 1 [place] 1039 017 1:06 PM CDT [facility] ([facility]) T18 Risk Not increased 11/17/2016 1:06 PM CDT [facility] ([facility]) T18 (by Age) 1:4050 11/17/2016 1:06 PM CDT [facility] ([facility]) Interpretation Comment 11/17/2016 1:06 PM CDT [facility] ([facility]) Comment: Interpretation: Screen Negative This result [...] identifies 60% of Trisomy 18 pregnancies. The [place] [employer] recommends amniocentesis be offered to women age 35 and older. Recalculations are not recommended when gestational dating by LMP and ultrasound are within 10 days. Comments Comment 11/17/2016 1:06 PM CDT [facility] ([facility]) Comment: Nicolette Barraza, Ph.D., [facility] Principal Genetics Pipe Testing Technician References: Available Upon Request. Multiples Of Median Cutoffs Abbreviation Definitions For AFP Elevations IDD- Insulin Dep Diabetes Newell 2.5 Black 2.8 OSBR- Open Spina Bifida IDD 2.0 Twins 4.5 Risk DSR Cutoff 1:270 DSR- Down Syndrome Risk T18 Cutoff 1:100 T18- Trisomy 18 Down Syndrome and Trisomy 18 screening are considered Investigational For further inquiries contact [employer] at [phone]. PDF . 11/17/2016 1:06 PM CDT [facility] ([facility]) Blood BLOOD SPECIMEN / Unknown Venipuncture / Unknown 11/12/2016 1:00 PM CDT 11/12/2016 1:20 PM CDT Narrative [facility] ([facility]) - 11/17/2016 1:06 PM CDT Performed at: [facility] [address] [facility], [place], [place] [id number] Sewer Contractor: Jeanine Weber MD, Phone: [phone] Razia Tsang MD LAB - CHEMISTRY BALDEV TALBERT Performing Organization Address City/[facility]/ZIP Co de Phone Number [facility] ([facility]) [address] [place] [phone] * HEMOGLOBIN ELECTROPHORESIS (11/12/2016 1:00 PM CDT) Pathologist [facility] Hemoglobin A1 97.7 97.1 - 99.1 % 11/13/2016 1:43 PM CDT [facility] Hemoglobin F 0.0 0.0 - 2.0 % 11/13/2016 1:43 PM CDT [facility] Hemoglobin S 0.0 <=0.0 % 11/13/2016 1:43 PM CDT [facility] Hemoglobin C 0.0 <=0.0 % 11/13/2016 1:43 PM CDT [facility] Hemoglobin A2 2.3 0.9 - 2.9 % 11/13/2016 1:43 PM CDT [facility] Hemoglobin E 0.0 % 11/13/2016 1:43 PM CDT [facility] Interpretation Normal Interpretation 11/13/2016 1:43 PM CDT [facility] Blood BLOOD SPECIMEN / Unknown Venipuncture / Unknown 11/12/2016 1:00 PM CDT 11/12/2016 1:20 PM CDT Razia Tsang MD LAB - CHEMISTRY BALDEV TALBERT [facility] [address] [place] [address] * (ABNORMAL) CBC W AUTO DIFFERENTIAL (11/12/2016 1:00 PM CDT) [facility] Signature WBC 10.6 4.4 - 10.7 x10E9/L 11/12/2016 1:30 PM CDT [facility] WBC Corrected x10E9/L 11/12/2016 1:30 PM CDT [facility] RBC 4.42 3.80 - 5.20 x10E12/L 11/12/2016 1:30 PM CDT [facility] Hemoglobin 12.2 12.0 - 15.6 gm/dL 11/12/2016 1:30 PM CDT [facility] Hematocrit 36.7 35.9 - 45.5 % 11/12/2016 1:30 PM CDT [facility] MCV 83.0 80.7 - 98.3 fl 11/12/2016 1:30 PM CDT [facility] MCH 27.6 26.7 - 34.0 pg 11/12/2016 1:30 PM CDT [facility] MCHC 33.2 30.8 - 35.9 gm/dL 11/12/2016 1:30 PM CDT [facility] Platelet Count 233 153 - 416 x10E9/L 11/12/2016 1:30 PM CDT [facility] RDW-CV 13.5 12.1 - 14.9 % 11/12/2016 1:30 PM CDT [facility] MPV 10.0 9.4 - 12.9 fl 11/12/2016 1:30 PM CDT [facility] Neutrophils % 73.7(H) 44.0 - 73.0 % 11/12/2016 1:30 PM CDT [facility] Lymphocytes % 16.1(L) 20.0 - 43.0 % 11/12/2016 1:30 PM CDT [facility] Monocytes % 5.6 5.0 - 13.0 % 11/12/2016 1:30 PM CDT [facility] Eosinophils % 3.5 0.0 - 6.0 % 11/12/2016 1:30 PM CDT [facility] Basophils % 0.6 0.0 - 2.0 % 11/12/2016 1:30 PM CDT [facility] Immature Granulocytes 0.5 0 - 1 % 11/12/2016 1:30 PM CDT [facility] Neutrophil Absolute 7.83(H) 2.01 - 7.14 x10E9/L 11/12/2016 1:30 PM CDT [facility] Lymphocytes Absolute 1.71 1.07 - 3.94 x10E9/L 11/12/2016 1:30 PM CDT [facility] Monocytes Absolute 0.60 0.26 - 1.07 x10E9/L 11/12/2016 1:30 PM CDT [facility] Eosinophils Absolute 0.37 0 - 0.47 x10E9/L 11/12/2016 1:30 PM CDT [facility] Basophils Absolute 0.06 0 - 0.08 x10E9/L 11/12/2016 1:30 PM CDT [facility] Immature Granulocytes Absolute 0.05 0.00 - 0.06 x10E9/L 11/12/2016 1:30 PM CDT [facility] nRBC Auto 0 /100 WBC 11/12/2016 1:30 PM CDT [facility] Blood BLOOD SPECIMEN / Unknown Venipuncture / Unknown 11/12/2016 1:00 PM CDT 11/12/2016 1:20 PM CDT Razia Tsang MD LAB - HEMATOLOGY ORD ERABLES [facility] [address] [place] [address] * PH FLUID - POCT (AMB) [facility] (08/29/2016) pH Vaginal 4.5 [facility] Vaginal swab (specimen) 08/29/2016 Shruthi Chand APRN-MAYLIN LAB - POINT OF CARE ORDERABLES [facility] * WET PREP - POINT OF CARE (AMB) [facility] (08/29/2016) pH Wet Prep 4.[address] [facility] Yeast Wet Prep n [facility] Trichomonas Wet Prep n [facility] Bacteria Wet Prep n [facility] Whiff Test n [facility] 08/29/2016 Shruthi Chand APRN-EXECUTIVE ADMINISTRATIVE ASSISTANT LAB - POINT OF CARE ORDERABLES [facility] * FUNGUS HELEN - POINT OF CARE (AMB) [facility] (08/29/2016) HELEN Prep n [facility] Fluid specimen (specimen) 08/29/2016 Shruthi Chand APRN-EXECUTIVE ADMINISTRATIVE ASSISTANT LAB - POINT OF CARE ORDERABLES Performing Organization Address [facility]/ZIP Co de Phone Number [facility] * HCG URINE QUALITATIVE - POCT (IP) [facility] (08/29/2016) Test Urine Positive [facility] Urine specimen (specimen) 08/29/2016 Shruthi Chand APRN-EXECUTIVE ADMINISTRATIVE ASSISTANT LAB - POINT OF CARE ORDERABLES Performing Organization Address [facility]/State/ZIP Co de Phone Number [facility]
--- OUTSIDE RECORDS SUMMARY | 2024-09-27 16:48 | XMS_ITS | CONTINUITY OF CARE DOCUMENT ---
Author Name jovan aldana Address Unknown Organization [facility] Address [address] [place] [address] Phone [phone] Care Team Providers Care Litigation Specialist Name Role Phone Davie Devries MD Unavailable JENA CHAUDHARI MD Unavailable [phone] JENA CHAUDHARI MD Unavailable [phone] PROBLEMS Condition Status Date Provider Notes Brain cyst active Davie Devries MD Elevated blood pressure read ing without diagnosis of hypertension active Davie Devries MD Vitamin D deficiency active Davie Devries MD [place] active Davie Devries MD Chest pain-type to be determined active Abdirizak Devries MD Dizziness active Davie Devries MD Palpitations active Davie Devries MD Cardiology examination active Davie sorensen MD ENCOUNTERS Date Type Provider Location Encounter Diag nosis - In-person encounter Office Visit Davie Devries MD [facility] - In-person encounter Office Visit Davie Devries MD [facility] Cardiology examinationPalpitationsDizzinessChest pain-type to be determinedFlushingVitamin [...] Devries MD blood pressure, diastolic 76 mm[Hg] Magro nkLogic blood pressure, systolic 106 mm[Hg] Jennifer [...] Payer name Policy type / Coverage type [place] red republican ID [facility] MEDICAID (2) Medicaid [id number] ADVANCE DIRECTIVES Name Date DISCUSSED - NO [...] Guaman NP Cardiology:[place] [id number]/weekly, but pt has not started as of yet Antonieta Guaman NP Cardiology:see #1 Antonieta Manning er DIE CASTING MACHINE OPERATOR Cardiology:2 weeks a go pt had episode of feellng flushed, dizziness, palpitations, and not feeling well. She went to [facility] and had BP of 141. Pt states that all they did was an EKG and sent her home, with no medications given. The next day she presented to [facility] in [place] with similar symptoms and 'to get a [...] Guaman NP Cardiology:see #1 Antonieta Kerri er DIE CASTING MACHINE OPERATOR Cardiology:2 weeks a go pt had episode of feellng flushed, dizziness, palpitations, and not feeling well. She went to [facility] and had BP of 141. Pt states that all they did was an EKG and sent her home, with no medications given. The next day she presented to [facility] in [place] with similar symptoms and 'to get a [...] echo and routine stress test Antonieta Guaman DIE CASTING MACHINE OPERATOR Cardiology Antonieta Guaman NP Date Name Monitor - Telemetry (Mobile Cardiac) Stress Routine Complete Echo HISTORY OF PROCEDURES Procedure Date Procedure Name Provider Procedure Notes S samus EKG Davie Devries MD complet ed
--- OUTSIDE RECORDS SUMMARY | 2024-09-27 16:48 | XMS_ITS | Clinical Summary ---
Author Organization [facility] Address [address] [place] [address] Care Team Providers Care Art Sales Consultant Name Role Phone None, Provider MD Primary Care Provider Unavaila ble Allergies No known active allergies Medications Acetaminophen 500 MG Chew Tab Chew 1 tablet by mouth every 4 (four) hours as needed (pain). Active Active Problems Problem Noted Date Diagnosed Date ([facility]) 05/06/2021 Normal spontaneous vaginal delivery ([facility]) Social History Tobacco Use Types Packs/Day Years [...] Comments Blood Pressure 105/80 06/07/2021 10:26 PM MANNEQUIN REFINISHER Pulse 79 06/07/2021 10:26 PM MANNEQUIN REFINISHER Temperature 36.6 C (97.8 F) 06/07/2021 8:25 PM MANNEQUIN REFINISHER Respiratory Rate 16 06/07/2021 8:25 PM MANNEQUIN REFINISHER Oxygen Saturation 98% 06/07/2021 8:25 PM MANNEQUIN REFINISHER Inhaled Oxygen Concentration - - Weight 66.2 [...] patient's age to complete this topic Insurance [employer] Advance Directives * Full Code (Latest Code Status on File) Date Activated Date Inactivated Comments 05/06/2021 4:39 PM 05/08/2021 6:26 PM Care Teams Art Sales Consultant Relationship Specialty Start Date End Date None, Provider, PCP - General 06/07/21
--- OUTSIDE RECORDS SUMMARY | 2024-09-27 16:48 | XMS_ITS | Clinical Summary ---
Author Organization [facility] Address [address] [place] [address] Phone Care Team Providers Care Camp Counselor Name Role Phone Porter Rodriguez MD Primary Care Provider [phone] Allergies No known active allergies Medications Medication Sig Dispensed Refills Start Date End Date Status ergocalciferol (VITAMIN D-2) 1.25 MG (15452 UT) capsule Take 50,000 Units by mouth [...] 2011 Influenza Vaccine (#1) 2024 Care Teams Camp Counselor Relationship Specialty Start Date End Date Porter Rodriguez MD PCP - General 10/15/23
--- OUTSIDE RECORDS SUMMARY | 2024-09-27 16:48 | XMS_ITS | Referral Summary ---
Author Organization [facility] Address [address] [place] [address] Care Team Providers Care Photo Offset Printer Name Role Phone Unavailable Primary Care Provider Unavailabl e Source Comments [facility],non-owned Affiliates and Associated Physician Practices is amultiple site organization consisting of ambulatory clinics and hospital sitesin [place], [place], [place] and [place]. This disclosure is being madepursuant to the Care Everywhere program and may not contain all information available regarding this patient. Last updated 18.[facility] Allergies No known active allergies Medications * [...] Active vitamin D, ergocalciferol, (Drisdol) 1.25 MG (42337 UT) capsule Take 1 (one) capsule by [...] 021 Assessment & Plan (08/09/2020 11:10 AM MEDIA CONSULTANT OUTSIDE SALES): - More eczematous in appearance today nummular eczema vs ACD, less likely PSO - Start Lidex ointment up to BID PRN to flared areas on body - Continue triamcinolone ointment to thinner areas on body PRN - Future considerations: patch testing if not improved on above regimen Fissure in skin of both feet 08/09/2020 Assessment & Plan (08/09/2020 11:10 AM MEDIA CONSULTANT OUTSIDE SALES): - Counseled patient on difficult to treat [...] Comments Blood Pressure 98/60 07/31/2023 11:15 AM MEDIA CONSULTANT OUTSIDE SALES Pulse 66 07/31/2023 11:15 AM MEDIA CONSULTANT OUTSIDE SALES Temperature 36.7 C (98 F) 07/31/2023 11:15 AM MEDIA CONSULTANT OUTSIDE SALES Respiratory Rate 16 07/31/2023 11:15 AM MEDIA CONSULTANT OUTSIDE SALES Oxygen Saturation 97% 07/31/2023 11:15 AM MEDIA CONSULTANT OUTSIDE SALES Inhaled Oxygen Concentration - - Weight 66.7 kg (147 lb) 07/31/2023 11:15 AM MEDIA CONSULTANT OUTSIDE SALES Height 167.6 cm (5' 6 ) 07/31/2023 11:15 AM MEDIA CONSULTANT OUTSIDE SALES Body Mass Index 23.73 07/31/2023 11:15 AM MEDIA CONSULTANT OUTSIDE SALES Plan of Treatment Not on file Procedures [...] Reactive Non Reactive 12/10/2016 7:41 PM CDT [facility] Blood BLOOD SPECIMEN / Unknown Venipuncture / Unknown 12/10/2016 11:49 AM CDT 12/10/2016 12:08 PM CDT Narrative [facility] - 12/10/2016 7:41 PM CDT No Laboratory evidence of HIV infection. Fanta Dover BEVELER-FINANCIAL SALES MANAGER LAB - CHEMISTRY O RDERABLES Performing Organization Address City/State/[facility] Co de Phone Number [facility] [address] [place] [address] from Last 3 Months or Most Recently Relevant to Health Maintenance
--- OUTSIDE RECORDS SUMMARY | 2024-09-27 16:48 | XMS_ITS | Encounter Summary ---
Author Organization [facility] Address [address] [place] [address] Care Team Providers Care Facilities Maintenance Supervisor Name Role Phone None, Provider MD Primary Care Provider Unavaila ble None, Provider Primary Care Provider Unavaila ble Encounter Details Date Type Department Care Team (Late st Contact Info) Description 06/05/2021 Hospital Follow-up Call [facility] [place] [address] Yasmine Gallegos, RN Social History Tobacco Use [...] COVID-19? No / Unsure 06/07/2021 7:55 PM CAGE OPERATOR documented as of this encounter Functional Status [...] on filedocumented in this encounter Care Teams Facilities Maintenance Supervisor Relationship Specialty Start Date End Date None, ProviderMD PCP - General 05/04/21 06/06/21 None, MD Zach PCP - General 06/07/21 documented as of this encounter
[2024-09-27] MEDS: PYRIDOXINE HCL 100 MG/ML VIAL (*SPC) 25 MG IV PUSH (17:16)
--- NOTE | 2024-09-27 18:40 | PC.NURSE ---
Pt reports feeling much better, and improvement in her nausea. Pt requesting a drink, given cranberry and orange juice upon request. Instructed to press call light and let RN know how the juice settles, if she is able to tolerate or if it causes more nausea/
[2024-09-27 19:03] VITALS: BP 103/66; PULSE 82; RESP 16; O2SAT 100
== END 2024-09-27 19:30 | disposition home or self-care (01) ==
PROVIDERS: Emergency Provider Student in an Organized Health Care Education/Training Program; PCP Emergency Medicine
DX: O21.9 Vomiting of pregnancy, unspecified (principal); Z3A.08 8 weeks gestation of pregnancy
CPT/HCPCS: 36415; 80053; 81001; 83690; 85025; 96361; 96374; 96375; 99284; J1200; J2550; J3415; J7120

== ENCOUNTER 2024-11-24 22:17 | Emergency (ER) | payer OTHER, SELFPAY ==
--- OUTSIDE RECORDS SUMMARY | 2024-11-24 22:19 | XMS_ITS | Referral Summary ---
Author Organization [facility] Address [address] [place] [address] Care Team Providers Care Survey Director Name Role Phone Porter Rodriguez MD Primary Care Provider [phone] Allergies No known active allergies Medications ferrous [...] on file Legal Sex Female 3:04 AM DIRECT CARE PROVIDER Gender Identity Not on file Sexual Orientation Not on file Last Filed Vital Signs Vital Sign Reading Time Taken Comments Blood Pressure 120/74 09/05/2023 12:00 PM DIRECT CARE PROVIDER Pulse 67 09/05/2023 12:00 PM DIRECT CARE PROVIDER Temperature 36.6 C (97.9 F) 09/05/2023 10:07 AM DIRECT CARE PROVIDER Respiratory Rate 20 09/05/2023 12:00 PM DIRECT CARE PROVIDER Oxygen Saturation 98% 09/05/2023 12:00 PM DIRECT CARE PROVIDER Inhaled Oxygen Concentration - - Weight 67 kg (147 lb 11.3 oz) 09/05/2023 10:07 A M DIRECT CARE PROVIDER Height 167.6 cm (5' 6 ) 07/01/2023 1:29 PM DIRECT CARE PROVIDER Body Mass Index 23.84 07/01/2023 1:29 PM DIRECT CARE PROVIDER Plan of Treatment Not on file Procedures Procedure Name Priority Date/Time Associated Diagnosis Comments HEPATITIS C ANTIBODY Routine Gen Lab 01/17/2017 10:50 AM CDT from Last 3 Months or Most Recently Relevant to Health Maintenance Results * Hepatitis C antibody (01/17/2017 10:50 AM CDT) Hep C Ab Nonreactive Nonreactive [facility] Comment: Interpretive Data Positive and greyzone results should be confirmed by a molecular method. If positive or greyzone, a second separately collected sample should be submitted for Hepatitis C Virus RNA. Detection and Quantitation by Real-Time Reverse Federal Mediator-PCR.Current Interpretive data was last revised on 2017. Blood specimen (specimen) 01/17/2017 10:50 AM CDT 01/17/2017 11:46 AM CDT us Annabel Frederick FOUNTAIN SUPERVISOR LAB MICROBIOLOGY - GEN ERAL ORDERABLES Edited Result - Final [facility] Department [place] [address] from Last 3 Months or Most Recently Relevant to Health Maintenance Insurance [facility] CHOICE PLUS [place] [facility] Care Teams Survey Director Relationship Specialty Start Date End Date Porter Rodriguez MD [address] [place] [address] PCP - General Emergency Medicine 09/05/23
--- OUTSIDE RECORDS SUMMARY | 2024-11-24 22:19 | XMS_ITS | Encounter Summary ---
Author Organization [facility] Address [address] [place] [address] Care Team Providers Care Merchandising Director Name Role Phone None, Provider MD Primary Care Provider Unavaila ble None, Provider Primary Care Provider Unavaila ble Encounter Details Date Type Department Care Team (Late st Contact Info) Description 06/05/2021 Hospital Follow-up Call [facility] [place] [address] Yasmine Gallegos, RN Social History Tobacco Use [...] COVID-19? No / Unsure 06/07/2021 7:55 PM LIVE IN COMPANION documented as of this encounter Functional Status [...] 7:26 PM Kaylee Carballo RN Active * Calculated C-SSRS Risk Score (Lifetime/Recent) Answer Date of Assessment Author Status No Risk Indicated 06/07/2021 8:25 PM Lauren Cuenca RN Active * [place] Suicide Severity Rating Scale (Screener/Recent Self-Report) Question Answer Date of Assessment Author Status 1. Wish to be (Past 1 Month) No 06/07/2021 8:25 PM Lauren Cuenca RN Active 2. Non-Specific Active Suicidal Thoughts (Past 1 Month) No 06/07/2021 8:25 PM Lauren Cuenca RN Active 6. Suicidal Behavior (Lifetime) No 06/07/2021 8:25 PM Lauren Cuenca RN Active documented as of this encounter [...] on filedocumented in this encounter Care Teams Merchandising Director Relationship Specialty Start Date End Date None, ProviderMD PCP - General 05/04/21 06/06/21 None, ProviderMD PCP - General 06/07/21 documented as of this encounter
--- OUTSIDE RECORDS SUMMARY | 2024-11-24 22:19 | XMS_ITS | Clinical Summary ---
Author Organization [facility] Address [address] [place] [address] Care Team Providers Care Front Desk Attendant Name Role Phone Porter Rodriguez MD Primary Care Provider [phone] Allergies No known active allergies Medications ferrous [...] on file Legal Sex Female 3:04 AM FINISHING LAB TECHNICIAN Gender Identity Not on file Sexual Orientation Not on file Obstetrics History Para Term AB IAB SAB Ectopic Multiple Livin g Live Births 3 1 1 1 Date Outcome GA Total Labor Labor/2nd/3rd Weight Sex Type Anes PTL Kerri A1 A5 Name Clin Term Last Filed Vital Signs Vital Sign Reading Time Taken Comments Blood Pressure 120/74 09/05/2023 12:00 PM FINISHING LAB TECHNICIAN Pulse 67 09/05/2023 12:00 PM FINISHING LAB TECHNICIAN Temperature 36.6 C (97.9 F) 09/05/2023 10:07 AM FINISHING LAB TECHNICIAN Respiratory Rate 20 09/05/2023 12:00 PM FINISHING LAB TECHNICIAN Oxygen Saturation 98% 09/05/2023 12:00 PM FINISHING LAB TECHNICIAN Inhaled Oxygen Concentration - - Weight 67 kg (147 lb 11.3 oz) 09/05/2023 10:07 A M FINISHING LAB TECHNICIAN Height 167.6 cm (5' 6 ) 07/01/2023 1:29 PM FINISHING LAB TECHNICIAN Body Mass Index 23.84 07/01/2023 1:29 PM FINISHING LAB TECHNICIAN Plan of Treatment Health Maintenance Due Date [...] CDT) Hep C Ab Nonreactive Nonreactive [facility] Comment: Interpretive Data Positive and greyzone results should be confirmed by a molecular method. If positive or greyzone, a second separately collected sample should be submitted for Hepatitis C Virus RNA. Detection and Quantitation by Real-Time Reverse Sewer Connector-PCR.Current Interpretive data was last revised on 2017. Blood specimen (specimen) 01/17/2017 10:50 AM CDT 01/17/2017 11:46 AM CDT us Annabel Frederick SOCIAL SECURITY SPECIALIST LAB MICROBIOLOGY - GEN ERAL ORDERABLES Edited Result - Final [facility] [place] [facility] Department [place] [address] from Last 3 Months or Most Recently Relevant to Health Maintenance Insurance [facility] CHOICE PLUS [facility] HMO/PPO Address: [address] [address] [place] [address] [place] [facility] Care Teams Front Desk Attendant Relationship Specialty Start Date End Date Porter Rodriguez MD [address] [place] [id number] PCP - General Emergency Medicine 09/05/23
--- OUTSIDE RECORDS SUMMARY | 2024-11-24 22:19 | XMS_ITS | Data Portability ---
Author Organization [employer] , [facility] Address [address] [place] [address] Assessment Encounter Date Assessment Date Assessment LastModified [...] decided. -- Pt would like D&C at [facility]. Message sent to schedule. bnotzke Not available 11/13/2022 11:48:03 Plan of Treatment Reminders Order Date Submit Date Provider Last Modified By Organization Details Last Modified Time Details Appointments None recorded. Lab culture, urine 2024 025 [facility], [address] [facility], [place], [address], 21:59:41 test, urine 2024 025 shannen [facility], [address] [place], [address], 5 13:02:57 abo group + rh type, blood 2022 023 [facility], [address] [facility], [place], [address], 3 22:34:26 CBC w/ auto diff 2022 023 [facility], [address] [place], [address], 3 20:26:27 beta-HCG, quantitativ e, serum or plasma 2022 023 [facility], [address] [place], [address], 3 22:35:31 test, urine 2022 023 bnotzke [facility], [address] [place], [address], 3 11:45:20 Referral None recorded. Procedures None recorded. Surgeries None recorded. Imaging US, transvagina l 2024 025 TARA Not available 5 03:28:49 US, transvagina l 2022 023 TARA Not available 3 14:11:17 Medication Orders Macrobid 100 mg capsule 2024 025 [id number], [address] [place], [place], [id number], 5 13:03:03 pyridoxine (vitamin B6) 25 mg tablet 2024 025 [facility], [address] , [place], [place], [id number], 13:05:34 Unisom (doxylamine ) 25 mg tablet 2024 [facility]16, [address] , [place], [place], [id number], 13:05:35 ondansetron 4 mg disintegrat ing tablet 2024 [facility] #38016, [address] , [place], [place], [id number], 13:05:38 Vitamin 27 mg iron-0.8 mg tablet 2024 [facility] #28319, [address] [facility], [place], [place], [id number], 13:03:00 Patient TargetsNo targets recorded. Patient Instructions Encounter Date Encounter Id Patient Instructions Last Modified By Organization Details Last Modified Time 09/22/2024 [id number] extreme nausea and vomiting in : care instructions Not available 09/22/2024 13:05:31 [facility] OB Booklet Not available 09/22/2024 13:02:57 Reason for Referral None Reported. Results Created Date Observation Date Name Description Value Unit Range Abnormal Flag Note LastModifiedBy Organization Detail LastModifiedTime 11/15/1911/14/2022 ABO GROUP AND RH TYPE ABO group O Not Available [facility] [address] [place], [address], 11/14/2022 17:15:02 11/15/19 23 11/14/2022 ABO GROUP [...] CLIEN T SERVI MIKE. PHONE NUMBE R: 482.6 [phone] 78 Not Available [facility] [address] [place], [address], 11/14/2022 17:15:02 11/14/19 23 11/14/2022 CBC (INCL UDES DIFF/ PLT) WBC 7.9 thous and/u L 4.0 - 9.8 normal Not Available [facility] [address] [place] [address], [address], 11/14/2022 12:28:35 11/14/19 23 11/14/2022 CBC (INCL UDES DIFF/ PLT) RBC 4.9 velma on/uL 3.9 - 4.9 normal Not Available [facility] [address] [place] [address], [address], 11/14/2022 12:28:35 11/14/19 23 11/14/2022 CBC (INCL UDES DIFF/ PLT) hemoglobin 13.1 g/dL 11.8 - 14.8 normal Not Available [facility] [address] [place] [address], [address], 11/14/2022 12:28:35 11/14/19 23 11/14/2022 CBC (INCL UDES DIFF/ PLT) hematocrit 40.0 % 35.5 - 44.0 normal Not Available [facility] [address] [place] [address], [address], 11/14/2022 12:28:35 11/14/19 23 11/14/2022 CBC (INCL UDES DIFF/ PLT) MCV 82.0 fL 82.0 - 99.0 normal Not Available [facility] [address] [place] [address], [address], 11/14/2022 12:28:35 11/14/19 23 11/14/2022 CBC (INCL UDES DIFF/ PLT) MCH 26.8 pg 27.2 - 32.6 low Not Available [address], [address], 11/14/2022 12:28:35 11/14/19 23 11/14/2022 CBC (INCL UDES DIFF/ PLT) MCHC 32.8 g/dL 31.5 - 35.5 normal Not Available [address], [address], 11/14/2022 12:28:35 11/14/19 23 11/14/2022 CBC (INCL UDES DIFF/ PLT) RDW-CV 13.7 % 11.5 - 14.5 normal Not Available [address], [address], 11/14/2022 12:28:35 11/14/19 23 11/14/2022 CBC (INCL UDES DIFF/ PLT) platelet 267 thous and/u L 140 - 350 normal Not Available [address], [address], 11/14/2022 12:28:35 11/14/19 23 11/14/2022 CBC (INCL UDES DIFF/ PLT) MPV 11.4 fL 9.3 - 12.4 normal Not Available [address], [address], 11/14/2022 12:28:35 11/14/19 23 11/14/2022 CBC (INCL UDES DIFF/ PLT) absolute neutrophil 5.24 thous and/u L 1.90 - 7.00 normal Not Available [address], [address], 11/14/2022 12:28:35 11/14/19 23 11/14/2022 CBC (INCL UDES DIFF/ PLT) absolute lymphocyte 1.74 thous and/u L 0.70 - 4.50 normal Not Available [address], [address], 11/14/2022 12:28:35 11/14/19 23 11/14/2022 CBC (INCL UDES DIFF/ PLT) absolute monocyte 0.46 thous and/u L 0.10 - 1.30 normal Not Available [address], [address], 11/14/2022 12:28:35 11/14/19 23 11/14/2022 CBC (INCL UDES DIFF/ PLT) absolute eosinophil 0.31 thous and/u L <0.70 normal Not Available [address], [address], 11/14/2022 12:28:35 11/14/19 23 11/14/2022 CBC (INCL UDES DIFF/ PLT) absolute basophil 0.14 thous and/u L <0.20 normal Not Available [address], [address], 11/14/2022 12:28:35 11/14/19 23 11/14/2022 CBC (INCL UDES DIFF/ PLT) absolute immature granulocyte 0.01 thous and/u L <0.03 normal Not Available [address], [address], 11/14/2022 12:28:35 11/14/19 23 11/14/2022 HCG, TOTAL , QUANT HCG, total, quant 92208 mIU/m L <5 high Refer ence Range [...] er of this assay . Not Available [address], [address], 11/14/2022 13:05:23 11/14/19 23 11/13/2022 pregn sonia test, urine HCG positi ve Not Available [facility] [address] [place], [address], 11/13/2022 10:14:53 09/23/19 25 09/23/2024 CULTU RE, URINE , ROUTI NE culture, urine, routine SEE NOTE CULTU RE, URINE , ROUTI NE Micro Numbe r: [id number] Test Statu s: Final Speci men Sourc e: Urine Speci men Quali ty: Adequ ate Resul t: No Growt h Not Available [facility] [address] [place], [address], 09/23/2024 21:59:41 09/23/19 25 09/22/2024 pregn sonia test, urine HCG positi ve Not Available [facility] [address] [place], [address], 09/21/2024 21:57:53 11/14/19 23 11/13/2022 US, trans vagin al No observ ation record ed. bnotzke [facility] [address], [place], [address], 11/13/2022 23:21:24 09/24/19 25 09/22/2024 US, trans vagin al No observ ation record ed. [facility] [address], [place], [address], 09/23/2024 21:59:34 Result Notes None recorded. Problems Name Problem SNOMED Code Status Onset Date Resolution Date Notes Provider Name and Address Organization Details Recorded Time Gestatio n period, 17 weeks 42715267 Completed 202001/17/2021 17 weeks gestatio n of pregnanc y; Progress : Stable Added By: Natalya Elkins Add to Current Problems : NO ProblemS tatus: Resolve Juliana jenkins, [facility] IV 17:00:29 Normal pregnanc y in multigra rufino [id number] 4106 Active 2020 Encounte r for supervis [...] 3 17:00:29 Gestatio n period, 10 weeks 14162928 Completed 202001/17/2021 10 weeks gestatio n of pregnanc y; Progress : Stable Added By: Jacy Dotson Add to Current Problems : NO ProblemS tatus: Resolve Juliana [place] null, [place] [facility] IV 3 17:00:29 Gestatio n period, 23 weeks 60497579 Completed 202002/21/2021 23 weeks gestatio n of pregnanc y; Progress : Stable Added By: Jorge Argueta Add to Current Problems : NO ProblemS tatus: Resolve Juliana Bennett null, [place] [facility] IV 3 17:00:29 Gestatio n period, 28 weeks 08505146 Completed 202003/15/2021 28 weeks gestatio n of [...] NO ProblemS tatus: Resolve Juliana Bennett alice, [employer] [facility] IV 3 17:00:29 Body mass index 20-24 - normal 613759247 Active 2024 ÁNGEL PARSONS, MARLENI [address] [place], [address] , [facility] IV 5 16:28:51 Problem Notes None recorded. Procedures Surgical History Date Name Laterality Status Provider Name and Address Organization Details Recorded Time 07/21/2020 Date of Last Pap Smear completed Kathleen Ye [facility] 11/13/2022 10:56:18 Imaging Results Imaging Date Name Status LastModified by Organization Details LastModified Time 11/13/2022 US, transvaginal completed yoletteotzke [address], [place], [address], 11/13/2022 23:21:24 09/22/2024 US, transvaginal completed shannen [address], [place], [address], 09/23/2024 21:59:34 Procedure Notes None recorded. Medical [...] completed Not Available Not Available Not Available metoclopr amide 5 mg tablet TAKE 1 TABLET BY MOUTH EVERY 6 HOURS NEEDED FOR NAUSEA OR VOMITING active Not Available Not Available No t Available cephalexi n 500 mg capsule TAKE 1 CAPSULE BY MOUTH EVERY 6 HOURS FOR 4 DAYS active Not Available Not Available No t Available omeprazol e 20 mg capsule,d elayed release [...] ondansetr on 4 mg disintegr ating tablet DISSOLVE 1 TABLET ON THE TONGUE EVERY 6 HOURS NEEDED active Not Available Not Available No t Available Unisom (doxylami ne) 25 mg tablet Take 1/2 or 1 tablet at bedtime 2024 active Not Available Not Available Not Avai lable Vitamin 27 mg iron-0.8 mg tablet TAKE 1 TABLET BY MOUTH EVERY DAY active Not Available Not Available No t Available nitrofura ntoin monohydra te/macroc rystals 100 mg capsule TAKE 1 CAPSULE BY MOUTH EVERY 12 HOURS FOR 7 DAYS active Not Available Not Available No t Available 28 mg-800 mcg tablet take one [...] Address Organization Details Last Updated DateTime 3 47951.0 2 g 98.7 [degF] 23.3 kg/m2 167.64 cm 100 mm[Hg] 62 mm[Hg] Tramea Cassi [facility] 3 11:02:19 Date Recorded Body height Body mass index (BMI) Body weight Body temperature Systolic blood pressure Diastolic blood pressure Provider Name and Address Organization Details Last Updated DateTime 5 167.64 cm 24.4 kg/m2 08553.4 5 g 97.9 [degF] 102 mm[Hg] 58 mm[Hg] Mckenzie Garcia [facility] 5 12:24:59 Social History Question Answer Notes LastModified by [employer] Details LastModified Time Tobacco Smoking Status Never Smoker Kathleen jenkins, [facility] 11/13/2022 10:58:50 What Is Your Level [...] Functional Status Question Answer Note LastModified by [employer] Details LastModified Time What is your exercise [...] N Cytomegalovirus N Hyperthyroidism N MRSA N Blood Transfusion N Herpes (HSV) N Breast Cancer N Lung Cancer N Depression N Hypothyroidism N Incontinence N Panic Attacks N Neurological Disorder N Deep Vein Thrombosis N Anxiety Disorder N Autoimmune disease N Arthritis N Shingles N Tuberculosis/Positive PPD N Polycystic Ovarian Syndrome N Cervical Cancer N Hematuria N Chlamydia N Varicosities N Stroke N Seasonal allergies N Crohn's Disease N Alzheimer's/Dementia N COPD/Emphysema N Endometriosis N HPV/Genital Warts N IBS (Irritable Bowel Syndrome) N History of Abnormal Pap N High Cholesterol N Liver Disease N Fibromyalgia N Kidney Infection N Ulcer N Kidney Disease N HIV [...] SNOMED-CT Code Diagnosis ICD10 Code Diagnosis Note [id number] [facility]I [place] [address] [place] [address] 11/13/2022 10:16:58 11/13/2022 16:26:07 test positive 976248342 Z32.01 Missed miscarriage 78077 004 O02.1 [id number] MARLENI [facility] [address] [place] [address] 09/22/2024 10:57:06 09/27/2024 15:59:51 test positive 594194899 Z32.01 Pt presents today for a confirmati [...] vitamins daily---To xoplasmosi s precaution s reviewed-- -[facility] Guide; What to expect on your maternity [...] and Physical. Urinary tr act infectious disease 73874844 N39.0 Was given Bactrim in ER for UTI. Discussed safety in and recommenda tion to switch to different antibiotic . Rx for Macrobid and urine culture sent. Nausea [id number] R11.0 Eat dry toast or crackers in [...] Recorded Advance Directives Directive None Recorded Payers Insurance Date Sequence Insurance Name Policy Number Policy Rees Covered Member ID Rees Member ID Guarantor Name 09/28/2024 1 [facility] ON OR AFTER 01/18/21 (MEDICAID REPLACEMENT - HMO) Prachi Jennifer [id number] Prachi Rodriguez Notes Date Note Type Note Provider Name and Address Organization Details Recorded Time 11/13/2022 text/html Patient is here for confirmation with u/s LMP 07/21/2022 [facility] [address], [place], [address], [facility] 11/13/2022 11:48:26 09/22/2024 text/html Confirmation VisitReported bypatient.obstetric s and gynecologyLMP: (08/01/24); flow is moderate; US IUP Confirmed; EDC (LMP): (05/08/25) Prahci presents today for confirmation. Pt states she has nausea, vomiting, and headaches, but denies vaginal bleeding or leaking fluids. MARLENI MURRAY [address], [place], [address], [facility] 09/24/2024 22:58:55 OBGyn Episode Ob Episode Information Episode Created Date Number of Fetuses Patient Bloodtype Patient rh Status Prepregnancy Weight lbs Domestic Partner Domestic Partner Phone Father Name Hub Associate Status 10/05/19 22 1 CLOSED Fetus Data First Name Last Name Admitted to NICU Weight (g) Sex Living Outcome Pediatric Complications Fetus ID Race Codes Race Delivery Type 2721.55 2 F Full Term [id number] Santiago Calculation Initial Santiago Date Initial Exam [...] Domestic Partner Domestic Partner Phone Father Name Hub Associate Status 10/05/19 22 1 CLOSED Fetus Data First Name Last Name Admitted to NICU Weight (g) Sex Living Outcome Pediatric Complications Fetus ID Race Codes Race Delivery Type 3175.14 4 M Full Term [id number] Santiago Calculation Initial Santiago Date Initial Exam [...] Domestic Partner Domestic Partner Phone Father Name Hub Associate Status 11/14/19 23 1 DELETED Santiago Calculation [...] Domestic Partner Domestic Partner Phone Father Name Hub Associate Status 11/14/19 23 1 CLOSED Fetus Data First Name Last Name Admitted to NICU Weight (g) Sex Living Outcome Pediatric Complications Fetus ID Race Codes Race Delivery Type 3628.73 6 Full Term [id number] Santiago Calculation Initial Santiago Date Initial Exam [...] Domestic Partner Domestic Partner Phone Father Name Hub Associate Status 11/14/19 23 1 DELETED Santiago Calculation [...] Domestic Partner Domestic Partner Phone Father Name Hub Associate Status 09/23/19 25 1 CLOSED Fetus Data First Name Last Name Admitted to NICU Weight (g) Sex Living Outcome Pediatric Complications Fetus ID Race Codes Race Delivery Type , Spontane ous [id number] Santiago Calculation Initial Santiago Date Initial Exam [...]
--- OUTSIDE RECORDS SUMMARY | 2024-11-24 22:19 | XMS_ITS | Clinical Summary ---
Author Organization [facility] Address [address] [place] [address] Care Team Providers Care Bolt Sorter Name Role Phone None, Provider MD Primary Care Provider Unavaila ble Allergies No known active allergies Medications Acetaminophen 500 MG Chew Tab Chew 1 tablet by mouth every 4 (four) hours as needed (pain). Active Active Problems Problem Noted Date Diagnosed Date ([facility]) 05/06/2021 Normal spontaneous vaginal delivery ([facility]) Social History Tobacco Use Types [...] Comments Blood Pressure 105/80 06/07/2021 10:26 PM CARD MOUNTER Pulse 79 06/07/2021 10:26 PM CARD MOUNTER Temperature 36.6 C (97.8 F) 06/07/2021 8:25 PM CARD MOUNTER Respiratory Rate 16 06/07/2021 8:25 PM CARD MOUNTER Oxygen Saturation 98% 06/07/2021 8:25 PM CARD MOUNTER Inhaled Oxygen Concentration - - Weight 66.2 [...] Cancer Screening with HPV 2022 COVID-19 Vaccine (2023-2 5 season) 2024 HPV Vaccines Aged Out No longer eligi ble based on patient's age to complete this topic Meningococcal B Vaccine Aged Out No l onger eligible based on patient's age to complete this topic Meningococcal Vaccine Aged Out No osiel hussein eligible based on patient's age to complete this topic Pneumococcal Vaccine: Pediat rics (0 to 5 Years) and At-Risk Patients (6 to 49 Years) Aged Out No longer eligible b ased on patient's age to complete this topic RSV Immunizations Under 20 Months Aged Out No longer eligible based on patient's age to complete this topic Insurance [place] Advance Directives * Full Code (Latest Code Status on File) Date Activated Date Inactivated Comments 05/06/2021 4:39 PM 05/08/2021 6:26 PM Care Teams Bolt Sorter Relationship Specialty Start Date End Date None, Provider, PCP - General 06/07/21
--- OUTSIDE RECORDS SUMMARY | 2024-11-24 22:19 | XMS_ITS | CONTINUITY OF CARE DOCUMENT ---
Author Name jovan aldana Address Unknown Organization [facility] Address [address] [place] [address] Phone [phone] Care Team Providers Care Storekeeper Helper Name Role Phone Davie Devries MD Unavailable JENA CHAUDHARI MD Unavailable [phone] JENA CHAUDHARI MD Unavailable [phone] PROBLEMS Condition Status Date Provider Notes Cardiology [...] In-person encounter Office Visit Davie Devries MD [facility] - In-person encounter Office Visit Davie Devries MD [facility] Cardiology examinationPalpitationsDizzinessChest pain-type to be determinedFlushingVitamin [...] Payer name Policy type / Coverage type [place] [employer] party ID [facility] MEDICAID (2) Medicaid [id number] ADVANCE DIRECTIVES Name Date DISCUSSED - NO [...] Guaman NP Cardiology:[place] [address]p/weekly, but pt has not started as of yet Antonieta Guaman NP Cardiology:see #1 Antonieta Manning er STOPBOARD ASSEMBLER Cardiology:2 weeks a go pt had episode of feellng flushed, dizziness, palpitations, and not feeling well. She went to [facility] and had BP of 141. Pt states that all they did was an EKG and sent her home, with no medications given. The next day she presented to [facility] in [place] with similar symptoms and 'to get a [...] Guaman NP Cardiology:see #1 Antonieta Kerri er STOPBOARD ASSEMBLER Cardiology:2 weeks a go pt had episode of feellng flushed, dizziness, palpitations, and not feeling well. She went to [facility] and had BP of 141. Pt states that all they did was an EKG and sent her home, with no medications given. The next day she presented to [facility] in [place] with similar symptoms and 'to get a [...] echo and routine stress test Antonieta Guaman STOPBOARD ASSEMBLER Cardiology Antonieta Guaman NP Date Name Monitor - Telemetry (Mobile Cardiac) Stress Routine Complete Echo HISTORY OF PROCEDURES Procedure Date Procedure Name Provider Procedure Notes S samus EKG Davie Devries MD complet ed
--- OUTSIDE RECORDS SUMMARY | 2024-11-24 22:19 | XMS_ITS | Clinical Summary ---
Author Organization [email or web address] Address [address] [place] [address] Care Team Providers Care Sheet Metal Superintendent Name Role Phone Unavailable Primary Care Provider Unavailabl e Source Comments [email or web address],non-owned Affiliates and Associated Physician Practices is amultiple site organization consisting of ambulatory clinics and hospital sitesin [place], [place], [place] and [place]. This disclosure is being madepursuant to the Care Everywhere program and may not contain all information available regarding this patient. Last updated 18.[email or web address] Allergies No known active allergies Medications * Be aware that medications may not be up to date on this document. Alwaysverify current medications with the patient. triamcinolone acetonide (KENALOG) 0.1 % ointmentIndicati ons:Rash and other nonspecific skin eruption Apply to rash 2-3x daily. 30 days supply. 80 g 4 1 Active vitamin D, ergocalciferol, (Drisdol) 1.25 MG (14083 UT) capsule Take 1 (one) capsule by mouth 3 Active clobetasol (Temovate) 0.05 % creamIndications :Plaque psoriasis Apply to affected area once daily as needed (For non-facial psoriasis rash. For daytime use (ointment at night time).) 45 g 4 Active clobetasol (Temovate) 0.05 % ointmentIndicati ons:Plaque psoriasis Apply twice daily as needed for psoriasis, avoid face and groin 60 g 11 4 Active calcipotriene (Dovonex) 0.005 % creamIndications :Plaque psoriasis Apply to affected area, twice daily. 60 g 11 4 Active Active Problems Patient Care Coordination No te Formatting of this note migh t be different from the original. NOPP-CC 10/2016 Problem Noted Date Diagnosed Date Allergic contact dermatitis due to other agents 11/07/2020 Rash and other nonspecific skin eruption 021 Assessment & Plan (08/09/2020 11:10 AM PASTE UP WORKER): - More eczematous in appearance today nummular eczema vs ACD, less likely PSO - Start Lidex ointment up to BID PRN to flared areas on body - Continue triamcinolone ointment to thinner areas on body PRN - Future considerations: patch testing if not improved on above regimen Fissure in skin of both feet 08/09/2020 Assessment & Plan (08/09/2020 11:10 AM PASTE UP WORKER): - Counseled patient on difficult to [...] drink = 0.6 oz pur e alcohol) Comments No Sex and Gender Information Value Date Recorded Sex Assigned at Not on file Legal Sex Female 12:39 PM PASTE UP WORKER Gender Identity Not on file Sexual Orientation Not on file Last Filed Vital Signs Vital Sign Reading Time Taken Comments Blood Pressure 98/60 07/31/2023 11:15 AM PASTE UP WORKER Pulse 66 07/31/2023 11:15 AM PASTE UP WORKER Temperature 36.7 C (98 F) 07/31/2023 11:15 AM PASTE UP WORKER Respiratory Rate 16 07/31/2023 11:15 AM PASTE UP WORKER Oxygen Saturation 97% 07/31/2023 11:15 AM PASTE UP WORKER Inhaled Oxygen Concentration - - Weight 66.7 kg (147 lb) 07/31/2023 11:15 AM PASTE UP WORKER Height 167.6 cm (5' 6 ) 07/31/2023 11:15 AM PASTE UP WORKER Body Mass Index 23.73 07/31/2023 11:15 AM PASTE UP WORKER Plan of Treatment Health Maintenance Due Date Last Done Comments PAP SMEAR 1992 HEPATITIS C SCREENING 06/12/2010 DTAP/TDAP/TD VACCINES (1 - Tdap) 2011 HEPATITIS B VACCINE (1 of 3 - 19+ 3-dose series) 2011 COVID-19 VACCINE (1 - 2023-2 5 season) 2024 DEPRESSION SCREENING 07/21/2024 INFLUENZA VACCINE (Season Ended) 2025 ZOSTER VACCINE (1 of 2) 2042 HIV SCREENING Completed 02/22/2021, 12/05/2020, 12/10/2016 HIB VACCINE Aged Out No longer eligi ble based on patient's age to complete this topic HPV VACCINE Aged Out No longer eligi ble based on patient's age to complete this topic MENINGOCOCCAL (Group B) VACCINE SHARED DECISION-MAKING Aged Out No longer eligible based on patient's age to complete this topic MENINGOCOCCAL GROUPS A/C/Y/W VACCINE Aged Out No longer eligible b ased on patient's age to complete this topic PNEUMOCOCCAL VACCINE Aged Out No long er eligible based on patient's age to complete this topic Procedures Procedure Name Priority Date/Time Associated Diagnosis Comments HIV-1 HIV-2 ANTIBODY + HIV P24 AG PANEL Routine 12/10/2016 11:49 AM CDT Supervision of normal first , antepartum from Last 3 Months or Most Recently Relevant to Health Maintenance Results * HIV-1 HIV-2 ANTIBODY + HIV P24 AG PANEL (12/10/2016 11:49 AM CDT) HIV1/2 Ab + P24 Ag Non Reactive Non Reactive 12/10/2016 7:41 PM CDT [facility] Blood BLOOD SPECIMEN / Unknown Venipuncture / Unknown 12/10/2016 11:49 AM CDT 12/10/2016 12:08 PM CDT Narrative [facility] - 12/10/2016 7:41 PM CDT No Laboratory evidence of HIV infection. us [facility] - CHEMISTRY ORDERABLE S Final Result Performing Organization Address City/State/[facility] Co de Phone Number [facility] [address] [place] [address] from Last 3 Months or Most Recently Relevant to Health Maintenance Insurance [facility]
[2024-11-24 22:24] VITALS: BP 108/69; PULSE 93; RESP 18; TEMP 37; O2SAT 100
--- NOTE | 2024-11-24 23:48 | ED_ITS ---
HPI - Eye Problem General Chief complaint: Eye Problems Stated complaint: Injury left eye Time Seen by Provider: 11/24/24 23:39 History of Present Illness HPI Narrative: Patient is a 34-year-old female presents to the ER with left eye pain. She her son was throwing a toilet earlier and it hit her in the eye. Patient endorses mild pain around her L upper and lower eyelids. She denies pain to her eyeball at this time, but felt like there was sand in there initially. Patient also endorses intermittent blurriness in the left eye. She denies any other pertinent medical history relevant to this ER visit. Patient denies any photophobia, pain with eye movement, excessive tearing, or curtain shading. Related Data Allergies Allergy/AdvReac Type Severity Reaction Status Date / Time No Known Allergies Allergy Verified 11/24/24 22:18 Review of Systems Review of Systems: All systems reviewed & are unremarkable except as noted in HPI and below PMFSH Surgical History Surgical History History of dilation and curettage 2022 Family History Family History Father Hypertension Diabetes mellitus COPD (chronic obstructive pulmonary disease) Mother Hypertension Diabetes mellitus Social History Social History Smoking status: Unknown if ever smoked Smokeless tobacco user: other Additional smoking assessment comments: hookah Alcohol intake: never Substance use: never Substance use type: does not use Do You Feel Safe in your Home?: Yes Lack of Transportation: No Lack of Food: Never True Current Housing: I Have Housing Concerned About Future Housing: No Difficulty Paying Gas/Electric Bills: No Difficulty Paying for Meds: No Currently Unemployed: Decline to Answer Education: High School Diploma/GED Difficulty w/ Childcare or Family Care: No Living arrangements: with family Occupation/Education: occupation Gender identity (if verbalized by the patient): Female Sexual Orientation (if Verbalized by the Patient): Straight or Heterosexual Exam Narrative: GENERAL: Well appearing, well-nourished, non-toxic, in no acute distress. HEAD: Normocephalic, atraumatic. PERRLA. Upon Wood's lamp examination pt has NO signs of scratches or foreign objects. NECK: Supple. No adenopathy, no masses. RESPIRATORY: Airway patent, respirations nonlabored. Clear to auscultation bilaterally, no rales, rhonchi, wheezing. CARDIOVASCULAR: Regular rate and rhythm without murmurs, rubs, or gallops. Peripheral pulses 2+ and equal bilaterally. ABDOMINAL: Soft, nontender, nondistended, no hepatosplenomegaly. Normoactive BS. MUSCULOSKELETAL: Moves all extremities. Strength/ROM intact without gross deformities. SKIN: Warm, dry, normal color. No rashes. NEURO: A&O X3. Speech clear. Cranial nerves II-XII intact. No ataxic movements. PSYCHIATRIC: Appropriate mood and affect. Normal interaction. Course Vital Signs Vital signs: Vital Signs Temperature 37.0 C 11/24/24 22:24 Pulse Rate 93 11/24/24 22:24 Respiratory Rate 18 11/24/24 22:24 Blood Pressure 108/69 11/24/24 22:24 Pulse Oximetry 100 11/24/24 22:24 Temperature 37.0 C 11/24/24 22:24 Pulse Rate 93 11/24/24 22:24 Respiratory Rate 18 11/24/24 22:24 Blood Pressure 108/69 11/24/24 22:24 Pulse Oximetry 100 11/24/24 22:24 MDM - Eye Problem MDM Narrative Medical decision making narrative: Patient is a 34-year-old female presents to the ER with left eye pain. She her son was throwing a toilet earlier and it hit her in the eye. Patient endorses mild pain around her L upper and lower eyelids. She denies pain to her eyeball at this time, but felt like there was sand in there initially. Patient also endorses intermittent blurriness in the left eye. She denies any other pertinent medical history relevant to this ER visit. Patient denies any photophobia, pain with eye movement, excessive tearing, or curtain shading. Medications ordered: Fluorecin strip, tetracaine drops Results: Upon Wood's lamp examination, pt has no corneal abrasions, no foreign objects, no scratches on the eyeball Diagnosis: superficial eye injury, L eye injury Risks: HEART score, PECARN score, CURB-65 score Consults: None necessary Patient Education/Shared MDM: Results of lab work shared with patient. They endorses improvement of symptoms following medication administration. Patient strongly advised to maintain hydration status upon discharge and follow-up with their PCP as soon as possible. They will be discharged home with a prescription for . Strict return precautions provided. Patient verbalized understanding and is in agreement with plan. Vital signs stable at time of discharge. All questions answered. Differential Diagnosis Differential diagnosis: Likely corneal abrasion, conjunctivitis, acute iritis, periorbital cellulitis and corneal ulcer Discharge Plan Discharge Clinical Impression: Left eye injury, Superficial eye injury Patient Disposition: Home Condition: Stable Instructions: Antibiotic Form Additional Instructions: Please return to the ER with any worsening symptoms. Follow-up with primary care provider as soon as possible. Take all medications as prescribed, i ncluding regularly scheduled medications. Patient Language: Luxembourger Prescriptions: New tobramycin 0.3 % drops 1 drp LEFT EYE Q4H Qty: 5 0RF No Action metoclopramide HCl 5 mg tablet 5 mg PO Q6H PRN (Reason: nausea and vomiting) Qty: 14 0RF cephalexin 500 mg capsule 500 mg PO Q6H 4 Days Qty: 16 0RF doxylamine succinate 25 mg tablet 25 mg PO Q6H PRN (Reason: nausea and vomiting) Qty: 30 0RF pyridoxine (vitamin B6) 25 mg tablet 25 mg PO Q6H PRN (Reason: nausea and vomiting) Qty: 30 0RF Follow-up/Referrals: Porter Rodriguez MD [Primary Care Provider] - Time of Disposition: 00:07
--- OUTSIDE RECORDS SUMMARY | 2024-11-25 00:20 | XMS_ITS | CONTINUITY OF CARE DOCUMENT ---
Author Name jovan aldana Address Unknown Organization [facility] Address [address] [place] [address] Phone [phone] Care Team Providers Care Pigment Presser Name Role Phone Davie Devries MD Unavailable JENA CHAUDHARI MD Unavailable [phone] JENA CHAUDHARI MD Unavailable [phone] PROBLEMS Condition Status Date Provider Notes Cardiology [...] In-person encounter Office Visit Davie Devries MD [facility] - In-person encounter Office Visit Davie Devries MD [facility] Cardiology examinationPalpitationsDizzinessChest pain-type to be determinedFlushingVitamin [...] Payer name Policy type / Coverage type [place] [employer] party ID [facility] (2) Medicaid [id number] ADVANCE DIRECTIVES Name Date DISCUSSED - NO [...] Guaman NP Cardiology:[place] [address]s/weekly, but pt has not started as of yet Antonieta Guaman NP Cardiology:see #1 Antonieta Manning er SOLAR CONSULTANT Cardiology:2 weeks a go pt had episode of feellng flushed, dizziness, palpitations, and not feeling well. She went to [facility] and had BP of 141. Pt states that all they did was an EKG and sent her home, with no medications given. The next day she presented to [facility] in [place] with similar symptoms and 'to get a [...] Guaman NP Cardiology:see #1 Antonieta Kerri er SOLAR CONSULTANT Cardiology:2 weeks a go pt had episode of feellng flushed, dizziness, palpitations, and not feeling well. She went to [facility] and had BP of 141. Pt states that all they did was an EKG and sent her home, with no medications given. The next day she presented to [facility] in [place] with similar symptoms and 'to get a [...] echo and routine stress test Antonieta Guaman SOLAR CONSULTANT Cardiology Antonieta Guaman NP Date Name Monitor - Telemetry (Mobile Cardiac) Stress Routine Complete Echo HISTORY OF PROCEDURES Procedure Date Procedure Name Provider Procedure Notes S samus EKG Davie Devries MD complet ed
--- OUTSIDE RECORDS SUMMARY | 2024-11-25 00:20 | XMS_ITS | Clinical Summary ---
Author Organization [facility] Address [address] [place] [address] Care Team Providers Care Corporate Learning Consultant Name Role Phone Porter Rodriguez MD Primary Care Provider [phone] Allergies No known active allergies Medications ferrous [...] on file Legal Sex Female 3:04 AM SAP BUSINESS ANALYST Gender Identity Not on file Sexual Orientation Not on file Obstetrics History Para Term AB IAB SAB Ectopic Multiple Livin g Live Births 3 1 1 1 Date Outcome GA Total Labor Labor/2nd/3rd Weight Sex Type Anes PTL Kerri A1 A5 Name Clin Term Last Filed Vital Signs Vital Sign Reading Time Taken Comments Blood Pressure 120/74 09/05/2023 12:00 PM SAP BUSINESS ANALYST Pulse 67 09/05/2023 12:00 PM SAP BUSINESS ANALYST Temperature 36.6 C (97.9 F) 09/05/2023 10:07 AM SAP BUSINESS ANALYST Respiratory Rate 20 09/05/2023 12:00 PM SAP BUSINESS ANALYST Oxygen Saturation 98% 09/05/2023 12:00 PM SAP BUSINESS ANALYST Inhaled Oxygen Concentration - - Weight 67 kg (147 lb 11.3 oz) 09/05/2023 10:07 A M SAP BUSINESS ANALYST Height 167.6 cm (5' 6 ) 07/01/2023 1:29 PM SAP BUSINESS ANALYST Body Mass Index 23.84 07/01/2023 1:29 PM SAP BUSINESS ANALYST Plan of Treatment Health Maintenance Due Date [...] RNA. Detection and Quantitation by Real-Time Reverse Supervisor Plastics-PCR.Current Interpretive data was last revised on 2017. Blood specimen (specimen) 01/17/2017 10:50 AM CDT 01/17/2017 11:46 AM CDT us Annabel Frederick SALES CONTRACT ADMINISTRATOR LAB MICROBIOLOGY - GEN ERAL ORDERABLES Edited Result - Final [facility] [place] [facility] Department [place] [address] from Last 3 Months or Most Recently Relevant to Health Maintenance Insurance [facility] H[facility]/PPO Address: [address] [address] [place] [address] [place] [facility] Care Teams Corporate Learning Consultant Relationship Specialty Start Date End Date Porter Rodriguez MD [address] [place] [id number] PCP - General Emergency Medicine 09/05/23
--- OUTSIDE RECORDS SUMMARY | 2024-11-25 00:20 | XMS_ITS | Referral Summary ---
Author Organization [facility] Address [address] [place] [address] Project Manager Name Role Phone Porter Rodriguez MD Primary Care Provider [phone] Allergies No known active allergies Medications ferrous [...] on file Legal Sex Female 3:04 AM INVESTMENT EXECUTIVE Gender Identity Not on file Sexual Orientation Not on file Last Filed Vital Signs Vital Sign Reading Time Taken Comments Blood Pressure 120/74 09/05/2023 12:00 PM INVESTMENT EXECUTIVE Pulse 67 09/05/2023 12:00 PM INVESTMENT EXECUTIVE Temperature 36.6 C (97.9 F) 09/05/2023 10:07 AM INVESTMENT EXECUTIVE Respiratory Rate 20 09/05/2023 12:00 PM INVESTMENT EXECUTIVE Oxygen Saturation 98% 09/05/2023 12:00 PM INVESTMENT EXECUTIVE Inhaled Oxygen Concentration - - Weight 67 kg (147 lb 11.3 oz) 09/05/2023 10:07 A M INVESTMENT EXECUTIVE Height 167.6 cm (5' 6 ) 07/01/2023 1:29 PM INVESTMENT EXECUTIVE Body Mass Index 23.84 07/01/2023 1:29 PM INVESTMENT EXECUTIVE Plan of Treatment Not on file Procedures [...] RNA. Detection and Quantitation by Real-Time Reverse Optical Glass Inspector-PCR.Current Interpretive data was last revised on 2017. Blood specimen (specimen) 01/17/2017 10:50 AM CDT 01/17/2017 11:46 AM CDT us Annabel Frederick CHIEF MARKETING OFFICER LAB MICROBIOLOGY - GEN ERAL ORDERABLES Edited Result - Final [facility] Department [place] [address] from Last 3 Months or Most Recently Relevant to Health Maintenance Insurance [facility] CHO[facility] PLUS [place] [facility] Care Teams Rd Project Manager Relationship Specialty Start Date End Date Porter Rodriguez MD [address] [place] [id number] PCP - General Emergency Medicine 09/05/23
--- OUTSIDE RECORDS SUMMARY | 2024-11-25 00:20 | XMS_ITS | Encounter Summary ---
Author Organization [facility] Address [address] [place] [address] Care Team Providers Care Concrete Fence Builder Name Role Phone None, Provider MD Primary Care Provider Unavaila ble None, Provider Primary Care Provider Unavaila ble Encounter Details Date Type Department Care Team (Late st Contact Info) Description 06/05/2021 Hospital Follow-up Call [facility] [place] [address] Yasmine Gallegos, RN Social History Tobacco Use [...] COVID-19? No / Unsure 06/07/2021 7:55 PM DEPARTMENT CLERK documented as of this encounter Functional Status [...] 8:25 PM Lauren Cuenca RN Active * [place] Suicide Severity Rating Scale (Screener/Recent Self-Report) Question [...] on filedocumented in this encounter Care Teams Concrete Fence Builder Relationship Specialty Start Date End Date None, ProviderMD PCP - General 05/04/21 06/06/21 None, ProviderMD PCP - General 06/07/21 documented as of this encounter
--- OUTSIDE RECORDS SUMMARY | 2024-11-25 00:20 | XMS_ITS | Clinical Summary ---
Author Organization [facility] Address [address] [place] [address] Care Team Providers Care Hospitalist Name Role Phone Unavailable Primary Care Provider Unavailabl e Source Comments [facility],non-owned Affiliates and Associated Physician Practices is amultiple site organization consisting of ambulatory clinics and hospital sitesin [place], [place], [place] and [place]. This disclosure is being madepursuant to the Care Everywhere program and may not contain all information available regarding this patient. Last updated 18.[facility] Allergies No known active allergies Medications * Be aware that medications may not be up to date on this document. Alwaysverify current medications with the patient. triamcinolone acetonide (KENALOG) 0.1 % ointmentIndicati ons:Rash and other nonspecific skin eruption Apply to rash 2-3x daily. 30 days supply. 80 g 4 1 Active vitamin D, ergocalciferol, (Drisdol) 1.25 MG (58048 UT) capsule Take 1 (one) capsule by [...] 021 Assessment & Plan (08/09/2020 11:10 AM CAD MANAGER): - More eczematous in appearance today nummular eczema vs ACD, less likely PSO - Start Lidex ointment up to BID PRN to flared areas on body - Continue triamcinolone ointment to thinner areas on body PRN - Future considerations: patch testing if not improved on above regimen Fissure in skin of both feet 08/09/2020 Assessment & Plan (08/09/2020 11:10 AM CAD MANAGER): - Counseled patient on difficult to treat [...] on file Legal Sex Female 12:39 PM CAD MANAGER Gender Identity Not on file Sexual Orientation Not on file Last Filed Vital Signs Vital Sign Reading Time Taken Comments Blood Pressure 98/60 07/31/2023 11:15 AM CAD MANAGER Pulse 66 07/31/2023 11:15 AM CAD MANAGER Temperature 36.7 C (98 F) 07/31/2023 11:15 AM CAD MANAGER Respiratory Rate 16 07/31/2023 11:15 AM CAD MANAGER Oxygen Saturation 97% 07/31/2023 11:15 AM CAD MANAGER Inhaled Oxygen Concentration - - Weight 66.7 kg (147 lb) 07/31/2023 11:15 AM CAD MANAGER Height 167.6 cm (5' 6 ) 07/31/2023 11:15 AM CAD MANAGER Body Mass Index 23.73 07/31/2023 11:15 AM CAD MANAGER Plan of Treatment Health Maintenance Due Date [...] evidence of HIV infection. us Fanta [place] JEWEL STAKER-RESTAURANT CREW [employer] LAB - CHEMISTRY ORDERABLE S Final Result Performing Organization Address City/State/[facility] Co de Phone Number [facility] [address] [place] [address] from Last 3 Months or Most Recently Relevant to Health Maintenance Insurance [facility]
--- OUTSIDE RECORDS SUMMARY | 2024-11-25 00:20 | XMS_ITS | Clinical Summary ---
Author Organization [facility] Address [address] [place] [address] Care Team Providers Care Historical Records Administrator Name Role Phone None, Provider MD Primary Care Provider Unavaila ble Allergies No known active allergies Medications Acetaminophen 500 MG Chew Tab Chew 1 tablet by mouth every 4 (four) hours as needed (pain). 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 Pulse 79 06/07/2021 10:26 PM PLUMBING INSPECTOR Temperature 36.6 C (97.8 F) 06/07/2021 8:25 PM PLUMBING INSPECTOR Respiratory Rate 16 06/07/2021 8:25 PM PLUMBING INSPECTOR Oxygen Saturation 98% 06/07/2021 8:25 PM PLUMBING INSPECTOR Inhaled Oxygen Concentration - - Weight 66.2 [...] patient's age to complete this topic Insurance [employer] Advance Directives * Full Code (Latest Code Status on File) Date Activated Date Inactivated Comments 05/06/2021 4:39 PM 05/08/2021 6:26 PM Care Teams Historical Records Administrator Relationship Specialty Start Date End Date None, Provider, PCP - General 06/07/21
[2024-11-25] MEDS: TETRACAINE HCL 0.5% OPHTH SOLN 4 ML BTL 1 DROP EACH EYE (00:25)
[2024-11-25] MEDS: FLUORESCEIN SOD 1 MG/STRIP EACH EYE (00:25)
== END 2024-11-25 00:28 | disposition home or self-care (01) ==
LOC: ANHED 11-25 00:19
PROVIDERS: Emergency Provider Registered Nurse; PCP Emergency Medicine
DX: S05.8X2A Other injuries of left eye and orbit, initial encounter (principal); F17.290 Nicotine dependence, other tobacco product, uncomplicated; W20.8XXA Other cause of strike by thrown, projected or falling object, initial encounter
CPT/HCPCS: 99283